=== PATIENT | female | born 1960 | race Caucasian/White ===

== ENCOUNTER 2020-09-09 11:31 | Outpatient (REF) | payer BC, SELFPAY ==
--- NOTE | 2020-09-09 11:31 | CT_ITS ---
EXAMINATION: CT CHEST WITHOUT CONTRAST CLINICAL INFORMATION: Lung cancer COMPARISON: Previous chest CT scans most recent March 2020 TECHNIQUE: Multidetector volumetric CT imaging of the chest was done. Axial MIP volume rendering provided. Sagittal and coronal reformatted images were obtained. This CT examination was performed using dose optimization techniques as appropriate, variously including the following: *Automated exposure control *Adjustment of mA and/or kV according to patient size (this includes techniques or standardized protocols for targeted exams where dose is matched to indication/reason for exam; i.e. 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 There is evidence of mild paraseptal emphysema. There is a small 3 mm left upper lobe nodule axial image 245 series 7 that is stable. There is a scarring or chronic subsegmental atelectasis at the left lung base axial image 400 series 7 that is stable. MEDIASTINUM: There are small mediastinal lymph nodes. No enlarged lymph nodes are seen. The heart does not appear enlarged. There is no coronary artery calcification. There is no pericardial effusion. PLEURA: There is no pleural effusion. No pleural mass or thickening. AXILLA: No enlarged axillary lymph nodes. There may be postsurgical changes to the right breast. No chest wall mass is seen. UPPER ABDOMEN: There is a gastric lap band. The liver is heterogeneous in attenuation suggestive of fatty infiltration with areas of focal fatty sparing. The gallbladder has been removed. OSSEOUS STRUCTURES: There are degenerative changes of the spine. CT/CT chest wo con IMPRESSION: Stable postsurgical changes following left lower lobe lobectomy.
== END 2020-09-09 11:32 | disposition home or self-care (01) ==
LOC: HO.CT 11:31
PROVIDERS: PCP Internal Medicine; Visit Provider Surgery
DX: C34.32 Malignant neoplasm of lower lobe, left bronchus or lung (principal)
CPT/HCPCS: 71250

== ENCOUNTER 2020-11-01 13:26 | Outpatient (REF) | payer BC, SELFPAY ==
[2020-11-01 17:15] LABS: Free T4 (Free Thyroxine) 1.23 ng/dL (0.71-1.85); Thyroid Stimulating Hormone 0.99 uIU/mL (0.32-4.0)
== END 2020-11-01 13:27 | disposition home or self-care (01) ==
LOC: HO.HMGCLDS 13:26
PROVIDERS: PCP Internal Medicine; Visit Provider Internal Medicine Endocrinology, Diabetes & Metabolism
DX: E03.9 Hypothyroidism, unspecified (principal)
CPT/HCPCS: 36415; 84439; 84443

== ENCOUNTER → 2020-11-04 11:49 | Outpatient (BNVA) | payer BC, SELFPAY | PROVIDERS: PCP Internal Medicine; Visit Provider Internal Medicine Endocrinology, Diabetes & Metabolism | DX: Z76.89 Persons encountering health services in other specified circumstances (principal) ==

== ENCOUNTER → 2020-11-08 10:49 | Outpatient (BNVA) | payer BC, SELFPAY | PROVIDERS: PCP Internal Medicine; Visit Provider Surgery | DX: Z76.89 Persons encountering health services in other specified circumstances (principal) | CPT/HCPCS: 99215 ==

== ENCOUNTER 2021-02-01 12:22 | Outpatient (REF) | payer BC, SELFPAY | END 2021-02-01 12:23 | disposition home or self-care (01) | LOC: HO.LAB 12:22 | PROVIDERS: Visit Provider Nurse Practitioner Family | DX: T14.8XXA Other injury of unspecified body region, initial encounter (principal); L03.90 Cellulitis, unspecified; W57.XXXA Bitten or stung by nonvenomous insect and other nonvenomous arthropods, initial encounter; Y93.9 Activity, unspecified; Y92.9 Unspecified place or not applicable; Y99.9 Unspecified external cause status | CPT/HCPCS: 87071; 87077; 87147; 87186; 87205 ==

== ENCOUNTER 2021-02-04 07:55 | Outpatient (RCR) | payer BC, SELFPAY | END 2021-05-02 09:54 | disposition home or self-care (01) | LOC: HO.WCC 07:55 | PROVIDERS: Visit Provider Physician Assistant | DX: L97.112 Non-pressure chronic ulcer of right thigh with fat layer exposed (principal); S70.361A Insect bite (nonvenomous), right thigh, initial encounter; E66.01 Morbid (severe) obesity due to excess calories; I87.2 Venous insufficiency (chronic) (peripheral); I27.20 Pulmonary hypertension, unspecified; G62.9 Polyneuropathy, unspecified; E03.9 Hypothyroidism, unspecified; Z79.2 Long term (current) use of antibiotics; Z79.899 Other long term (current) drug therapy; Z99.81 Dependence on supplemental oxygen | CPT/HCPCS: 10060; 11042; 87071; 87077; 87147; 87186; 87205; 88304; 99213 ==

== ENCOUNTER → 2021-02-06 10:18 | Outpatient (BNVA) | payer BC, SELFPAY | PROVIDERS: PCP Internal Medicine; Visit Provider Physician Assistant ==

== ENCOUNTER 2021-02-07 10:21 | Outpatient (REF) | payer BC, SELFPAY ==
[2021-02-07 11:41] LABS: Anion Gap 14 (12-20); Blood Urea Nitrogen 15 mg/dL (9-16); Carbon Dioxide 31 mmol/L (22-29); Chloride 98 mmol/L (96-108); Estimated Glomerular Filt Rate > 60; Glucose Random 100 mg/dL (60-115); Magnesium 2.2 mg/dL (1.6-2.6); Potassium 3.8 mmol/L (3.3-5.1); Sodium 139 mmol/L (135-145)
[2021-02-07 11:44] LABS: B Type Natriuretic Peptide 19 pg/mL (<100)
[2021-02-07 12:00] LABS: Free T4 (Free Thyroxine) 1.45 ng/dL (0.71-1.85); Thyroid Stimulating Hormone 0.17 uIU/mL (0.32-4.0)
[2021-02-08 08:21] LABS: Lyme Abs Screen <0.90 index
== END 2021-02-07 10:22 | disposition home or self-care (01) ==
LOC: HO.HMGCLDS 10:21
PROVIDERS: Absent Provider Internal Medicine Endocrinology, Diabetes & Metabolism; PCP Internal Medicine; Referring Provider Internal Medicine Cardiovascular Disease; Visit Provider Nurse Practitioner Family
DX: R06.02 Shortness of breath (principal); E03.8 Other specified hypothyroidism; E06.3 Autoimmune thyroiditis; T14.8XXA Other injury of unspecified body region, initial encounter
CPT/HCPCS: 36415; 80051; 82565; 82947; 83735; 83880; 84439; 84443; 84520; 86617; 86618

== ENCOUNTER → 2021-03-27 10:32 | Outpatient (BNVA) | payer BC, SELFPAY | PROVIDERS: PCP Internal Medicine; Referring Provider Internal Medicine; Visit Provider Internal Medicine Gastroenterology ==

== ENCOUNTER → 2021-06-09 10:56 | Outpatient (BNVA) | payer BC, SELFPAY | PROVIDERS: Referring Provider Internal Medicine; Visit Provider Internal Medicine Gastroenterology ==

== ENCOUNTER 2021-06-20 15:32 | Outpatient (REF) | payer BC, SELFPAY ==
[2021-06-20 15:36] LABS: MANUAL DIFF FLAG NO
[2021-06-20 15:43] LABS: Basophils Percent Auto 0.5 % (0-2); Eosinophils Absolute Auto 0.2 X10*3/uL (0.0-0.4); Eosinophils Percent Auto 2.1 % (0-4); Hematocrit 33.2 % (37-47); Hemoglobin 10.7 g/dl (12.0-16.0); Imm Gran Abs Auto 0.04 X10*3/uL (0.00-0.03); Imm Gran Pct Auto 0.5 % (0.0-0.4); Lymphocytes Absolute Auto 1.7 X10*3/uL (1.2-4.9); Lymphocytes Percent Auto 20.7 % (20-40); Mean Corpuscular HGB Conc 32.2 g/dl (31.0-35.0); Mean Corpuscular Hemoglobin 30.2 pg (27.0-33.0); Mean Corpuscular Volume 93.8 fL (80-98); Mean Platelet Volume 8.9 fL (9.4-12.3); Monocytes Absolute Auto 0.7 X10*3/uL (0.1-1.2); Monocytes Percent Auto 9.1 % (2-11); Neutrophils Absolute Auto 5.4 X10*3/uL (2.0-8.3); Neutrophils Percent Auto 67.1 % (45-73); Platelet Count 396 X10*3/uL (160-400); Red Blood Count 3.54 X10*6/uL (4.20-5.50); Red Cell Distribution Width 14.5 % (11.0-16.0)
[2021-06-20 16:05] LABS: Alanine Aminotransferase 13 U/L (0-31); Albumin Level 3.8 g/dL (3.5-5.0); Alkaline Phosphatase 115 U/L (39-117); Anion Gap 16 (12-20); Aspartate Amino Transferase 16 U/L (5-31); Bilirubin Total 0.2 mg/dL (0.0-1.0); Blood Urea Nitrogen 11 mg/dL (9-16); Calcium 8.9 mg/dL (8.4-10.2); Carbon Dioxide 30 mmol/L (22-29); Chloride 98 mmol/L (96-108); Estimated Glomerular Filt Rate 60; Glucose Random 114 mg/dL (60-115); Potassium 3.6 mmol/L (3.3-5.1); Sodium 140 mmol/L (135-145); Total Protein 6.5 g/dL (6.5-8.0)
[2021-06-20 16:35] LABS: Erythrocyte Sedimentation Rate 90 MM/HR (0-20)
== END 2021-06-20 15:33 | disposition home or self-care (01) ==
LOC: HO.HVNA 15:32
PROVIDERS: PCP Internal Medicine; Visit Provider Internal Medicine Infectious Disease
DX: T84.50XA Infection and inflammatory reaction due to unspecified internal joint prosthesis, initial encounter (principal)
CPT/HCPCS: 36415; 80053; 85025; 85652; 86140

== ENCOUNTER 2021-07-01 14:10 | Outpatient (REF) | payer BC, SELFPAY ==
[2021-07-01 15:05] LABS: Free T4 (Free Thyroxine) 0.72 ng/dL (0.71-1.85); T4 Thyroxine 3.6 ug/dL (4.5-12.0)
== END 2021-07-01 14:11 | disposition home or self-care (01) ==
LOC: HO.HVNA 14:10
PROVIDERS: Visit Provider Internal Medicine
DX: E03.8 Other specified hypothyroidism (principal); E06.3 Autoimmune thyroiditis
CPT/HCPCS: 36415; 84436; 84439; 84443

== ENCOUNTER 2021-07-07 14:46 | Outpatient (REF) | payer BC, SELFPAY ==
[2021-07-07 14:51] LABS: MANUAL DIFF FLAG NO
[2021-07-07 14:57] LABS: Basophils Percent Auto 0.6 % (0-2); Eosinophils Absolute Auto 0.3 X10*3/uL (0.0-0.4); Hematocrit 34.4 % (37-47); Hemoglobin 10.9 g/dl (12.0-16.0); Imm Gran Abs Auto 0.01 X10*3/uL (0.00-0.03); Imm Gran Pct Auto 0.2 % (0.0-0.4); Lymphocytes Absolute Auto 2.2 X10*3/uL (1.2-4.9); Lymphocytes Percent Auto 33.4 % (20-40); Mean Corpuscular HGB Conc 31.7 g/dl (31.0-35.0); Mean Corpuscular Hemoglobin 29.5 pg (27.0-33.0); Mean Corpuscular Volume 93.2 fL (80-98); Mean Platelet Volume 9.1 fL (9.4-12.3); Monocytes Absolute Auto 0.6 X10*3/uL (0.1-1.2); Monocytes Percent Auto 9.5 % (2-11); Neutrophils Absolute Auto 3.4 X10*3/uL (2.0-8.3); Neutrophils Percent Auto 52.3 % (45-73); Platelet Count 291 X10*3/uL (160-400); Red Blood Count 3.69 X10*6/uL (4.20-5.50); Red Cell Distribution Width 14.6 % (11.0-16.0); White Blood Count 6.5 X10*3/uL (4.8-10.8)
[2021-07-07 20:55] LABS: Alanine Aminotransferase 15 U/L (0-31); Albumin Level 3.6 g/dL (3.5-5.0); Alkaline Phosphatase 109 U/L (39-117); Anion Gap 15 (12-20); Aspartate Amino Transferase 16 U/L (5-31); Bilirubin Total 0.3 mg/dL (0.0-1.0); Blood Urea Nitrogen 12 mg/dL (9-16); Calcium 9.3 mg/dL (8.4-10.2); Carbon Dioxide 30 mmol/L (22-29); Chloride 102 mmol/L (96-108); Estimated Glomerular Filt Rate > 60; Glucose Random 93 mg/dL (60-115); Potassium 3.5 mmol/L (3.3-5.1); Sodium 143 mmol/L (135-145); Total Protein 6.2 g/dL (6.5-8.0)
== END 2021-07-07 14:47 | disposition home or self-care (01) ==
LOC: HO.LNP 14:46
PROVIDERS: Visit Provider Internal Medicine
DX: M00.9 Pyogenic arthritis, unspecified (principal)
CPT/HCPCS: 80053; 85025

== ENCOUNTER 2021-08-01 | Outpatient (REF) | payer BC, SELFPAY ==
--- NOTE | ~2021-08-01 | CT_ITS ---
EXAMINATION: CT CHEST WITHOUT CONTRAST CLINICAL INFORMATION: History of lung cancer. Post left lower lobe lobectomy. COMPARISON: Previous chest CT scans most recent August 2020 TECHNIQUE: Multidetector volumetric CT imaging of the chest was done. Axial MIP volume rendering provided. Sagittal and coronal reformatted images were obtained. This CT examination was performed using dose optimization techniques as appropriate, variously including the following: *Automated exposure control *Adjustment of mA and/or kV according to patient size (this includes techniques or standardized protocols for targeted exams where dose is matched to indication/reason for exam; i.e. extremities or head) *Use of iterative reconstruction technique DLP: 232 mGy-cm FINDINGS: LUNGS: There are stable postsurgical changes following left lower lobe lobectomy with left lung volume loss and shift of the central mediastinal structures to the left. There is chronic scarring or subsegmental atelectasis at the left lung base that is stable. There is minimal subsegmental atelectasis at the right lung base. The lungs are otherwise clear. MEDIASTINUM: There are small mediastinal lymph nodes. No enlarged lymph nodes are seen. The heart does not appear enlarged. There is no pericardial effusion. The thoracic aorta is normal in caliber. PLEURA: There is no pleural effusion. No pleural mass or thickening. AXILLA: There are surgical clips in the right axilla and breast. No chest wall mass or enlarged axillary lymph nodes are seen. UPPER ABDOMEN: There is a gastric lap band. There may be a small esophageal hernia. The gallbladder has been removed. OSSEOUS STRUCTURES: There are degenerative changes of the spine. CT/CT chest wo con IMPRESSION: Stable postsurgical changes following left lower lobe lobectomy.
== END 2021-08-01 00:01 | disposition home or self-care (01) ==
LOC: HO.CT
PROVIDERS: PCP Internal Medicine; Visit Provider Surgery
DX: C34.90 Malignant neoplasm of unspecified part of unspecified bronchus or lung (principal)
CPT/HCPCS: 71250

== ENCOUNTER → 2021-08-15 10:36 | Outpatient (BNVA) | payer BC, SELFPAY | PROVIDERS: PCP Internal Medicine; Visit Provider Surgery | DX: C34.90 Malignant neoplasm of unspecified part of unspecified bronchus or lung (principal); I27.24 Chronic thromboembolic pulmonary hypertension; F17.200 Nicotine dependence, unspecified, uncomplicated; Z79.899 Other long term (current) drug therapy; Z90.2 Acquired absence of lung [part of]; Z99.81 Dependence on supplemental oxygen | CPT/HCPCS: 99212 ==

== ENCOUNTER 2021-08-28 11:52 | Outpatient (REF) | payer BC, SELFPAY ==
[2021-08-28 13:45] LABS: MANUAL DIFF FLAG NO
[2021-08-28 13:51] LABS: Basophils Percent Auto 0.4 % (0-2); Eosinophils Absolute Auto 0.3 X10*3/uL (0.0-0.4); Eosinophils Percent Auto 3.6 % (0-4); Hematocrit 36.8 % (37.0-47.0); Hemoglobin 11.6 g/dl (12.0-16.0); Imm Gran Abs Auto 0.02 X10*3/uL (0.00-0.03); Imm Gran Pct Auto 0.3 % (0.0-0.4); Lymphocytes Absolute Auto 1.5 X10*3/uL (1.2-4.9); Lymphocytes Percent Auto 20.6 % (20-40); Mean Corpuscular HGB Conc 31.5 g/dl (31.0-35.0); Mean Corpuscular Hemoglobin 28.7 pg (27.0-33.0); Mean Corpuscular Volume 91.1 fL (80.0-98.0); Monocytes Absolute Auto 0.6 X10*3/uL (0.1-1.2); Monocytes Percent Auto 7.8 % (2-11); Neutrophils Absolute Auto 5.04 x10*3/uL (2.0-8.3); Neutrophils Percent Auto 67.3 % (45-73); Platelet Count 321 X10*3/uL (160-400); Red Blood Count 4.04 X10*6/uL (4.20-5.50); Red Cell Distribution Width 14.5 % (11.0-16.0); White Blood Count 7.5 X10*3/uL (4.8-10.8)
[2021-08-28 14:03] LABS: Estimated Average Glucose 108 mg/dL; Hemoglobin A1c % 5.4 %
[2021-08-28 14:22] LABS: Anion Gap 13 (12-20); Blood Urea Nitrogen 12 mg/dL (9-16); Calcium 8.8 mg/dL (8.4-10.2); Carbon Dioxide 32 mmol/L (22-29); Chloride 102 mmol/L (96-108); Estimated Glomerular Filt Rate > 60; Glucose Random 107 mg/dL (60-115); Iron 45 mcg/dL (30-160); Percent Iron Saturation 15 % (15-50); Sodium 143 mmol/L (135-145); Total Iron Binding Capacity 291 mcg/dL (228-428); Unsaturated Iron Binding 246 ug/dL
[2021-08-28 14:42] LABS: Free T4 (Free Thyroxine) 1.58 ng/dL (0.71-1.85); Thyroid Stimulating Hormone 0.08 uIU/mL (0.32-4.0)
[2021-08-28 14:44] LABS: Vitamin D 25-OH Total 44.8 ng/mL (>30)
[2021-08-28 14:51] LABS: Vitamin B12 741 pg/mL (200-900)
[2021-08-28 15:16] LABS: Insulin 17 uU/mL (2-29)
[2021-09-03 07:41] LABS: Fructosamine 250 umol/L (205-285)
== END 2021-08-28 11:53 | disposition home or self-care (01) ==
LOC: HO.HMGCLDS 11:52
PROVIDERS: PCP Internal Medicine; Visit Provider Internal Medicine
DX: E03.8 Other specified hypothyroidism (principal); E06.3 Autoimmune thyroiditis; E66.01 Morbid (severe) obesity due to excess calories; Z68.41 Body mass index [BMI] 40.0-44.9, adult
CPT/HCPCS: 36415; 80048; 82040; 82306; 82607; 82746; 82985; 83036; 83525; 83540; 84134; 84439; 84443; 85025

== ENCOUNTER → 2021-09-22 10:52 | Outpatient (BNVA) | payer BC, SELFPAY | PROVIDERS: Referring Provider Internal Medicine; Visit Provider Internal Medicine Gastroenterology ==

== ENCOUNTER 2021-11-12 13:12 | Outpatient (REF) | payer BC, SELFPAY ==
[2021-11-12 16:23] LABS: MANUAL DIFF FLAG NO
[2021-11-12 16:27] LABS: Basophils Percent Auto 0.6 % (0-2); Eosinophils Absolute Auto 0.4 X10*3/uL (0.0-0.4); Eosinophils Percent Auto 5.2 % (0-4); Hematocrit 39.9 % (37.0-47.0); Hemoglobin 12.3 g/dl (12.0-16.0); Imm Gran Abs Auto 0.02 X10*3/uL (0.00-0.03); Imm Gran Pct Auto 0.3 % (0.0-0.4); Lymphocytes Absolute Auto 1.6 X10*3/uL (1.2-4.9); Lymphocytes Percent Auto 24.1 % (20-40); Mean Corpuscular HGB Conc 30.8 g/dl (31.0-35.0); Mean Corpuscular Hemoglobin 28.2 pg (27.0-33.0); Mean Corpuscular Volume 91.5 fL (80.0-98.0); Mean Platelet Volume 8.8 fL (9.4-12.3); Monocytes Absolute Auto 0.6 X10*3/uL (0.1-1.2); Monocytes Percent Auto 8.7 % (2-11); Neutrophils Absolute Auto 4.1 x10*3/uL (2.0-8.3); Neutrophils Percent Auto 61.1 % (45-73); Platelet Count 338 X10*3/uL (160-400); Red Blood Count 4.36 X10*6/uL (4.20-5.50); Red Cell Distribution Width 14.5 % (11.0-16.0); White Blood Count 6.8 X10*3/uL (4.8-10.8)
[2021-11-12 17:02] LABS: Anion Gap 14 (12-20); Blood Urea Nitrogen 15 mg/dL (9-16); Carbon Dioxide 30 mmol/L (22-29); Chloride 101 mmol/L (96-108); Estimated Glomerular Filt Rate > 60; Glucose Random 101 mg/dL (60-115); Potassium 4.3 mmol/L (3.3-5.1); Sodium 141 mmol/L (135-145)
[2021-11-12 17:03] LABS: Cholesterol 200 mg/dL; HDL Cholesterol 54 mg/dL; Iron 42 mcg/dL (30-160); LDL Cholesterol Calculated 125 mg/dl; Percent Iron Saturation 13 % (15-50); Total Iron Binding Capacity 320 mcg/dL (228-428); Triglycerides 105 mg/dL; Unsaturated Iron Binding 278 ug/dL
[2021-11-12 17:19] LABS: Free T4 (Free Thyroxine) 1.38 ng/dL (0.71-1.85); Thyroid Stimulating Hormone 0.88 uIU/mL (0.32-4.0)
[2021-11-12 17:24] LABS: Vitamin D 25-OH Total 39.9 ng/mL (>30)
[2021-11-14 02:36] LABS: Triiodothyronine T3 Total 65 ng/dL (76-181)
[2021-11-15 16:51] LABS: FIB-ALT 21 U/L (6-29); FIB-Alpha-2-Macroglobulin 114 mg/dL (106-279); FIB-Apolipoprotein A1 155 mg/dL (101-198); FIB-GGT 57 U/L (3-70); FIB-Haptoglobin 294 mg/dL (43-212); FIB-Total Bilirubin 0.3 mg/dL (0.2-1.2); Liver Fibrosis Score 0.04; Liver Fibrosis Stage F0; Nec Inflam Act Grade A0; Nec Inflam Act Score 0.06
== END 2021-11-12 13:13 | disposition home or self-care (01) ==
LOC: HO.HMGCLDS 13:12
PROVIDERS: Absent Provider Internal Medicine Gastroenterology; PCP Internal Medicine; Referring Provider Internal Medicine; Visit Provider Physician Assistant Medical
DX: E03.8 Other specified hypothyroidism (principal); E06.3 Autoimmune thyroiditis; D64.9 Anemia, unspecified; E78.5 Hyperlipidemia, unspecified; I10 Essential (primary) hypertension; I27.20 Pulmonary hypertension, unspecified; K75.81 Nonalcoholic steatohepatitis (NASH); Z78.0 Asymptomatic menopausal state
CPT/HCPCS: 36415; 80051; 80061; 81596; 82306; 82565; 82947; 83540; 84439; 84443; 84480; 84520; 85025

== ENCOUNTER → 2021-11-14 13:06 | Outpatient (REF) | payer BC, SELFPAY ==
--- NOTE | 2021-11-14 13:15 | ECG_ITS ---
Test Reason : preop Blood Pressure : / mmHG Vent. Rate : 097 BPM Atrial Rate : 097 BPM P-R Int : 190 ms QRS Dur : 096 ms QT Int : 370 ms P-R-T Axes : 080 -21 035 degrees QTc Int : 469 ms Sinus rhythm with Fusion complexes Incomplete right bundle branch block Minimal voltage criteria for LVH, may be normal variant ( R in aVL ) Possible Lateral infarct , age undetermined Abnormal ECG When compared with ECG of 01-OCT-2018 11:08, Significant changes have occurred Referred By: Alisha Worley Electronically Signed By:Hugo Pisano
== END ==
LOC: HO.CARD 13:06
PROVIDERS: PCP Internal Medicine; Visit Provider Internal Medicine
DX: Z01.818 Encounter for other preprocedural examination (principal); I27.24 Chronic thromboembolic pulmonary hypertension; I10 Essential (primary) hypertension
CPT/HCPCS: 93005

== ENCOUNTER → 2021-11-19 08:40 | Outpatient (BNVA) | payer BC, SELFPAY | PROVIDERS: PCP Internal Medicine; Referring Provider Internal Medicine; Visit Provider Internal Medicine ==

== ENCOUNTER 2022-02-04 11:23 | Outpatient (REF) | payer BC, SELFPAY ==
--- NOTE | ~2022-02-04 | XR_ITS ---
EXAMINATION: XR SKULL CLINICAL INFORMATION: Indentation on the skull. Question congenital malformation. COMPARISON: None TECHNIQUE: 5 views of the skull were obtained. FINDINGS: The calvarium appears normal in contour and density. No bony abnormality seen. There is benign hyperostosis frontalis interna. Also visualized is benign pineal gland calcification. Visualized paranasal sinuses and mastoid air cells are normal. Bilateral bony orbits are normal. Visualized mandible and maxillofacial bones are unremarkable. XR/XR skull min 4V IMPRESSION: Essentially unremarkable skull exam.
== END 2022-02-04 11:24 | disposition home or self-care (01) ==
LOC: HO.HMGCX 11:23
PROVIDERS: PCP Internal Medicine; Visit Provider Internal Medicine
DX: M95.2 Other acquired deformity of head (principal)
CPT/HCPCS: 70260

== ENCOUNTER → 2022-03-09 12:33 | Outpatient (BNVA) | payer BC, SELFPAY | PROVIDERS: PCP Internal Medicine; Referring Provider Internal Medicine; Visit Provider Internal Medicine | DX: R94.31 Abnormal electrocardiogram [ECG] [EKG] (principal); I27.24 Chronic thromboembolic pulmonary hypertension; I95.9 Hypotension, unspecified | CPT/HCPCS: 93005 ==

== ENCOUNTER 2022-04-21 12:05 | Outpatient (REF) | payer BC, SELFPAY ==
[2022-04-21 14:43] LABS: Thyroid Stimulating Hormone 3.44 uIU/mL (0.32-4.0)
== END 2022-04-21 12:06 | disposition home or self-care (01) ==
LOC: HO.HMGCLDS 12:05
PROVIDERS: PCP Internal Medicine; Visit Provider Internal Medicine Endocrinology, Diabetes & Metabolism
DX: E03.8 Other specified hypothyroidism (principal); E06.3 Autoimmune thyroiditis
CPT/HCPCS: 36415; 84439; 84443

== ENCOUNTER → 2022-05-28 13:25 | Outpatient (BNVA) | payer BC, SELFPAY | PROVIDERS: PCP Internal Medicine; Referring Provider Internal Medicine; Visit Provider Internal Medicine | DX: Z01.810 Encounter for preprocedural cardiovascular examination (principal); I95.9 Hypotension, unspecified; I27.24 Chronic thromboembolic pulmonary hypertension; R94.31 Abnormal electrocardiogram [ECG] [EKG] | CPT/HCPCS: 93005 ==

== ENCOUNTER 2022-08-19 12:58 | Outpatient (REF) | payer BC, SELFPAY ==
--- NOTE | ~2022-08-19 | CT_ITS ---
EXAMINATION: CT CHEST WITHOUT CONTRAST CLINICAL INFORMATION: Lung cancer COMPARISON: Previous chest CT most recent July 2021 TECHNIQUE: Multidetector volumetric CT imaging of the chest was done. Axial MIP volume rendering provided. Sagittal and coronal reformatted images were obtained. This CT examination was performed using dose optimization techniques as appropriate, variously including the following: *Automated exposure control *Adjustment of mA and/or kV according to patient size (this includes techniques or standardized protocols for targeted exams where dose is matched to indication/reason for exam; i.e. 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 This appears unchanged. There is mild biapical pleural and parenchymal scarring. There is chronic scarring or subsegmental atelectasis in the left lower lobe that appears unchanged. There is a 3 mm left nodule axial image 229 series 5 that retrospect is unchanged. MEDIASTINUM: There are small mediastinal lymph nodes that are stable. Normal heart size. No pericardial effusion. Normal caliber thoracic aorta. CORONARY ARTERY CALCIFICATION: None visualized on this study. PLEURA: There is no pleural effusion. No pleural mass or thickening. AXILLA: Surgical clips in the right breast and axilla. No chest wall mass or enlarged axillary lymph nodes. UPPER ABDOMEN: There is a gastric lap band. The distal esophagus is slightly dilated. This is similar to previous exams. OSSEOUS STRUCTURES: Degenerative changes of the spine. CT/CT chest wo IV con IMPRESSION: Stable postsurgical changes following left lower lobe lobectomy. Fleischner guidelines were followed.
== END 2022-08-19 12:59 | disposition home or self-care (01) ==
LOC: HO.CT 12:58
PROVIDERS: PCP Internal Medicine; Visit Provider Surgery
DX: C34.90 Malignant neoplasm of unspecified part of unspecified bronchus or lung (principal)
CPT/HCPCS: 71250

== ENCOUNTER 2022-09-11 13:38 | Outpatient (REF) | payer BC, SELFPAY ==
[2022-09-11 15:20] LABS: Free T4 (Free Thyroxine) 1.08 ng/dL (0.71-1.85); Thyroid Stimulating Hormone 0.99 uIU/mL (0.32-4.0)
== END 2022-09-11 13:39 | disposition home or self-care (01) ==
LOC: HO.LAB 13:38
PROVIDERS: PCP Internal Medicine; Visit Provider Internal Medicine Endocrinology, Diabetes & Metabolism
DX: E03.8 Other specified hypothyroidism (principal); E06.3 Autoimmune thyroiditis
CPT/HCPCS: 36415; 84439; 84443

== ENCOUNTER → 2022-09-25 10:31 | Outpatient (BNVA) | payer BC, SELFPAY | PROVIDERS: PCP Internal Medicine; Visit Provider Surgery | DX: C34.90 Malignant neoplasm of unspecified part of unspecified bronchus or lung (principal) | CPT/HCPCS: 99212 ==

== ENCOUNTER 2022-11-30 10:43 | Outpatient (AMB) | payer BC, SELFPAY ==
--- NOTE | 2022-11-30 10:44 | A.OFFPC_ITS ---
Vital Signs 11/30/22 10:46 Height 5 ft 4 in Weight 247 lb BMI 42.4 BP 108/64 Blood Pressure Location Lt brachial Position Sitting Pulse 114 H Pulse Source Pulse Oximeter Pulse Oximetry (%) 98 Oxygen Delivery Method Room Air Intake Visit Reasons: ffup anemia, HTN , thyroid Intake Note: Follow-up on hypertension, anemia and hypothyroidism Professional Fee Coder Required: No Allergies Sulfa (Sulfonamide Antibiotics) Allergy (Intermediate, Verified 07/04/23 22:21) RASH/SWELLING/THROAT CLOSING soy [SOY] Allergy (Unknown, Verified 07/04/23 22:21) HIVES Medication List - Last Reconciled 07/04/23 by Alisha Worley MD acetaminophen (Tylenol Extra Strength) 1,000 mg PO Q6H PRN ascorbic acid (vitamin C) 1,000 mg PO DAILY baclofen 10 mg PO TID PRN 90 days clonazepam 1 mg PO .q 6 hrs docusate sodium (Colace) 100 mg PO BID furosemide 40 mg PO DAILY gabapentin 600 mg PO TID L. gasseri-B. bifidum-B longum 1.5 billion cell 1 cap PO DAILY lamotrigine 100 mg PO DAILY levothyroxine 250 mcg (2 x 125 mcg) PO DAILY 90 days lisdexamfetamine 70 mg PO QAM methylphenidate HCl 40 mg PO QAM midodrine 5 mg PO TID mirabegron ER (Myrbetriq) 50 mg PO DAILY phenazopyridine (Pyridium) 200 mg PO TID 3 days polyethylene glycol 3350 (Miralax) 17 grams PO BID quetiapine 800 mg PO BEDTIME quetiapine 200 mg PO BEDTIME riociguat (Adempas) 2 mg PO TID rivaroxaban 20 mg PO DAILY Saccharomyces boulardii (Daily Probiotic (S. 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 She has been feeling well for the most part but does get tired easily, compliant with taking her medications. She has times that she keeps forgetting small things, but attributes this to her psych meds. FORMERLY [facility] Medical History Bilateral knee pain Word finding difficulty Right hip pain ADD (attention deficit disorder) Bipolar disorder Dependence on supplemental oxygen Nonscarring hair loss Morbid obesity History of pneumothorax History of pulmonary embolism Chronic thromboembolic pulmonary hypertension History of right breast cancer (~1998) Gallstones Migraine headache Anemia Fatigue Hypothyroidism Lung cancer (~2017) Obstructive sleep apnea (adult) (pediatric) Surgical History History of right breast biopsy (~1998) History of colonoscopy History of laparoscopic adjustable gastric banding (~2009) History of cholecystectomy (~2001) History of lobectomy of lung (~2017) History of total right hip replacement (~2012) History of lumpectomy of right breast Family History Father Stomach cancer Stroke CAD (coronary artery disease) Heart disease Hyperlipidemia CVD (cardiovascular disease) Mother Hyperlipidemia HTN (hypertension) History of TIA (transient ischemic attack) Vascular dementia Mental illness in member of household Sister Rheumatoid arthritis Maternal Aunt Breast cancer Social History Housing: House Alcohol intake: current Alcohol intake frequency: holidays/special occasions only Patient Tobacco Use Status: Former Tobacco user Quit Date: 1997 Years Smoked: 12 +/- e-Cigarette/Vaping Use: Never Used Second Hand Smoke Exposure: No Current occupational status: other 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 Jose Braden, Romelia Hawkins, Chetan Jones and colleagues, with an educational hany from [employer]. Review of Systems Const Denies chills, Denies fever(s), Denies headache(s) and Denies poor appetite Eyes Reports no additional complaints ENT Denies dizziness and Denies headache(s) Card Denies chest pain, Denies leg edema, Denies lightheadedness, Denies dyspnea, Denies dyspnea on exertion and Denies orthopnea Resp Denies cough, Denies dyspnea and Denies dyspnea on exertion GI Denies hematochezia, Denies change in bowel habits and Denies heartburn Denies hematuria and Denies difficulty voiding Musc Reports arthralgias (knees), Denies joint swelling, Denies numbness and Denies tingling Skin/Breast Denies rash Neuro Denies dizziness, Denies headache(s), Denies numbness and Denies tingling Endo Reports no additional complaints Manuel/Lymph Reports no additional complaints Aller/Immun Reports no additional complaints Physical exam (Primary Care) Vital Signs: Last Vital Signs Pulse 114 H 11/30/22 10:46 BP 108/64 11/30/22 10:46 Pulse Ox 98 11/30/22 10:46 Oxygen Delivery Method Room Air 11/30/22 10:46 BMI result Body Mass Index 42.4 Tobacco/Smoking Status: Tobacco use Status Tobacco use date assessed 11/30/22 11/30/22 10:49 Patient Tobacco Use Status Former Tobacco user 11/30/22 10:49 e-Cigarette/Vaping Use Never Used 11/30/22 10:49 Thrive Assessment: Date of Thrive Assessment Date Thrive assessed 09/05/21 11/30/22 10:49 Const General: comfortable, no acute distress and alert Orientation/consciousness: patient oriented x3 Limitations: wheelchair HENMT Ears: external ears normal General nose exam: Normal external nose present Mouth: Normal oral and palatal mucosa present, oropharynx normal and moist mucous membranes Eyes General: appearance normal, both eyes and all related structures Conjunctivae: conjunctivae normal Sclerae: sclerae normal Pupils: Equal, round and reactive pupils present EOM: EOMs intact bilaterally Neck Neck: Yes full ROM, Yes no lymphadenopathy and Yes supple Resp Effort & Inspection: normal respiratory effort and able to speak in complete sentences Auscultation: clear to auscultation bilaterally Cardio Rate: tachycardic Rhythm: regular rhythm Heart sounds: S1 normal heart sound present and S2 normal heart sound present GI Palpation (GI): Soft to palpation, nontender and no masses Auscultation: normal bowel sounds Skin General skin exam: no rashes or lesions noted Neuro General: patient oriented x3, moves all extremities, Normal light touch and pain sensation and no focal motor deficits Cranial nerves: Yes CN's II-XII intact bilaterally and Yes Equal, round and reactive pupils present Cognition (Neuro): normal cognition Extrem General: Yes no joint enlargement, Yes no clubbing, cyanosis or edema and Yes no calf tenderness Psych Appearance: grossly normal and well kempt Mental Status: mental status grossly normal Speech and movement: Normal speech and movement present Affect: normal affect Attitude: cooperative Thought process: Normal thought process present Thought content: Normal thought content present Assessment and Plan Assessment & Plan (1) Anemia: Code(s): D64.9 - Anemia, unspecified Qualifiers: Anemia type: unspecified type Qualified Code(s): D64.9 - Anemia, unspecified Plan: Will check CBC, vitamin B12 vitamin-D level (2) Hypertension: Code(s): I10 - Essential (primary) hypertension Qualifiers: Hypertension type: primary hypertension Qualified Code(s): I10 - Essential (primary) hypertension Plan: Blood pressure at goal of less than 130/80. Continue with current medication. Reinforced importance of following a low sodium diet, getting regular exercise, and lowering stress levels. Comprehensive metabolic panel ordered, and fasting lipid panel (3) Hypothyroidism: Code(s): E03.9 - Hypothyroidism, unspecified Qualifiers: Hypothyroidism type: due to Jamia's thyroiditis Qualified Code(s): E03.8 - Other specified hypothyroidism; E06.3 - Autoimmune thyroiditis Plan: Will check TSH and free T4 level, in the meantime continue on current dose of levothyroxine 250 mcg daily Orders: Orders Complete Blood Count Auto Diff 11/30/22 D64.9 - Anemia, unspecified, I10 - Essential (primary) hypertension, E03.9 - Hypothyroidism, unspecified, M79.7 - Fibromyalgia, R47.89 - Other speech disturbances Vitamin B12 and Folate 11/30/22 D64.9 - Anemia, unspecified, I10 - Essential (primary) hypertension, E03.9 - Hypothyroidism, unspecified, M79.7 - Fibromyalgia, R47.89 - Other speech disturbances Vitamin D 25-OH Total 11/30/22 D64.9 - Anemia, unspecified, I10 - Essential (primary) hypertension, E03.9 - Hypothyroidism, unspecified, M79.7 - Fibromyalgia, R47.89 - Other speech disturbances Thyroid Stimulating Hormone 11/30/22 D64.9 - Anemia, unspecified, I10 - Essential (primary) hypertension, E03.9 - Hypothyroidism, unspecified, M79.7 - Fibromyalgia, R47.89 - Other speech disturbances Free T4 (Free Thyroxine) 11/30/22 E03.9 - Hypothyroidism, unspecified, D64.9 - Anemia, unspecified, I10 - Essential (primary) hypertension, M79.7 - Fibromyalgia, R47.89 - Other speech disturbances Lipid Panel 11/30/22 D64.9 - Anemia, unspecified, I10 - Essential (primary) hypertension, E03.9 - Hypothyroidism, unspecified, M79.7 - Fibromyalgia, R47.89 - Other speech disturbances Comprehensive [place]. Panel Fast 11/30/22 D64.9 - Anemia, unspecified, I10 - Essential (primary) hypertension, E03.9 - Hypothyroidism, unspecified, M79.7 - Fibromyalgia, R47.89 - Other speech disturbances Coding Level of Care Code Est Pt Level 3 (75497) Diagnoses Anemia, unspecified type D64.9 Anemia type: unspecified type Primary hypertension I10 Hypertension type: primary hypertension 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 E03.8; E06.3 Hypothyroidism type: due to Jamia's thyroiditis
[2022-11-30 10:46] VITALS: BP 108/64; PULSE 114; O2SAT 98; BMI 42.4
== END 2022-11-30 11:22 | disposition home or self-care (01) ==
LOC: HO.HMGC 10:43
PROVIDERS: PCP Internal Medicine; Visit Provider Internal Medicine
DX: D64.9 Anemia, unspecified (principal); I10 Essential (primary) hypertension; E03.8 Other specified hypothyroidism; E06.3 Autoimmune thyroiditis
CPT/HCPCS: 99213

== ENCOUNTER → 2022-12-03 13:36 | Outpatient (BNVA) | payer BC, SELFPAY | PROVIDERS: PCP Internal Medicine; Referring Provider Internal Medicine; Visit Provider Internal Medicine | DX: R94.31 Abnormal electrocardiogram [ECG] [EKG] (principal); I27.24 Chronic thromboembolic pulmonary hypertension; I95.9 Hypotension, unspecified; R00.0 Tachycardia, unspecified | CPT/HCPCS: 93005 ==

== ENCOUNTER → 2023-01-14 11:34 | Outpatient (BNVA) | payer BC, SELFPAY | PROVIDERS: PCP Internal Medicine; Referring Provider Internal Medicine; Visit Provider Internal Medicine Gastroenterology | DX: Z13.89 Encounter for screening for other disorder (principal) ==

== ENCOUNTER 2023-02-25 10:08 | Outpatient (REF) | payer BC, SELFPAY ==
--- NOTE | ~2023-02-25 | US_ITS ---
EXAMINATION: US ABDOMEN LIMITED WITH LIVER ELASTOGRAPHY CLINICAL INFORMATION: Hepatic steatosis. COMPARISON: None available. TECHNIQUE: Real-time imaging of the abdominal viscera. Noninvasive ultrasound liver fibrosis assessment is performed using Gilda ElastPQ point quantification shear wave elastography (2D-SWE) with a C5-2 MHz transducer. Multiple elastography samples are obtained. FINDINGS: PANCREAS: Largely obscured by overlying bowel gas. LIVER: The liver demonstrates contour and increased echogenicity. No focal lesion or intrahepatic biliary duct dilatation. The right lobe measures 18.3 cm in length. The left lobe measures 9.3 cm in length. Portal flow is towards the liver (hepatopetal). Shear wave liver elastography median stiffness is 1.81 m/s (reference: normal median stiffness is 1.3 m/s or less). IQR/median stiffness to assess sampling precision is 0.10 (reference: good quality data set is IQR/median stiffness of 0.15 or less). GALLBLADDER: Surgically absent. COMMON BILE DUCT: Normal in caliber measuring 0.3 cm in diameter. RIGHT KIDNEY: Normal. No hydronephrosis. No renal calculi or focal parenchymal lesions. The kidney measures 12.9 cm in maximum dimension. FREE FLUID: None. US/US abdomen malloy w elastography IMPRESSION: 1. There is hepatomegaly. As well, there is borderline splenomegaly. 2. There is generalized increase in hepatic echotexture, consistent with fatty infiltration or hepatocellular disease. Please correlate clinically. No focal hepatic mass or intrahepatic biliary dilatation is seen. 3. Liver elastography: Measurements are suggestive of compensated advanced chronic liver disease but need further test for confirmation. 4. The gallbladder is surgically absent. REFERENCE: Society of Radiologists in Ultrasound Liver Stiffness Thresholds (2020): LIVER STIFFNESS THRESHOLDS: *Liver Stiffness equal or less than 1.3 m/s: High probability of being normal. *Liver Stiffness less than 1.7 m/s: In the absence of other known clinical signs, rules out compensated advanced chronic liver disease. *Liver Stiffness 1.7-2.1 m/s: Suggestive of compensated advanced chronic liver disease but need further test for confirmation. *Liver Stiffness over 2.1 m/s: Rules in compensated advanced chronic liver disease. *Liver Stiffness over 2.4 m/s: Suggestive of clinically significant portal hypertension. QUALITY OF DATA SET: *IQR/Median value equal or less than 0.15 implies a quality data set. *IQR/Median value over 0.15 implies a poor quality data set. SIGNIFICANT CHANGE FROM PRIOR EXAM: Significant change if liver stiffness measurement is 10% or greater from prior exam. OTHER CONSIDERATIONS: The stage of liver fibrosis may be overestimated in the setting of acute hepatitis, liver inflammation, elevated liver function tests, hepatic vascular congestion, obstructive cholestasis, non-fasting state, and infiltrative diseases such as amyloidosis and lymphoma. In some patients with NAFLD, the liver stiffness thresholds for compensated advanced chronic liver disease may be lower. In causes other than viral hepatitis and NAFLD, liver stiffness thresholds are not well established.
== END 2023-02-25 10:09 | disposition home or self-care (01) ==
LOC: HO.US 10:08
PROVIDERS: PCP Internal Medicine; Visit Provider Internal Medicine Gastroenterology
DX: K76.0 Fatty (change of) liver, not elsewhere classified (principal)
CPT/HCPCS: 76705; 76981

== ENCOUNTER 2023-02-25 10:59 | Outpatient (REF) | payer BC, SELFPAY ==
[2023-02-25 11:21] LABS: MANUAL DIFF FLAG NO
[2023-02-25 11:30] LABS: Basophils Percent Auto 0.7 % (0-2); Eosinophils Absolute Auto 0.3 X10*3/uL (0.0-0.4); Eosinophils Percent Auto 4.9 % (0-4); Hematocrit 42.7 % (37.0-47.0); Hemoglobin 13.5 g/dl (12.0-16.0); Imm Gran Abs Auto 0.01 X10*3/uL (0.00-0.03); Imm Gran Pct Auto 0.2 % (0.0-0.4); Lymphocytes Absolute Auto 1.2 X10*3/uL (1.2-4.9); Lymphocytes Percent Auto 21.3 % (20-40); Mean Corpuscular HGB Conc 31.6 g/dl (31.0-35.0); Mean Corpuscular Hemoglobin 29.9 pg (27.0-33.0); Mean Corpuscular Volume 94.5 fL (80.0-98.0); Mean Platelet Volume 8.7 fL (9.4-12.3); Monocytes Absolute Auto 0.5 X10*3/uL (0.1-1.2); Monocytes Percent Auto 8.3 % (2-11); Neutrophils Absolute Auto 3.7 x10*3/uL (2.0-8.3); Neutrophils Percent Auto 64.6 % (45-73); Platelet Count 236 X10*3/uL (160-400); Red Blood Count 4.52 X10*6/uL (4.20-5.50); Red Cell Distribution Width 13.6 % (11.0-16.0); White Blood Count 5.7 X10*3/uL (4.8-10.8)
[2023-02-25 11:34] LABS: INTERNATIONAL NORM RATIO 1.2 (0.9-1.1)
[2023-02-25 11:40] LABS: Ammonia 24 umol/L (13-55)
[2023-02-25 12:13] LABS: Alanine Aminotransferase 19 U/L (0-31); Albumin Level 4.1 g/dL (3.5-5.0); Alkaline Phosphatase 99 U/L (39-117); Anion Gap 10 (12-20); Aspartate Amino Transferase 19 U/L (5-31); Bilirubin Total 0.6 mg/dL (0.0-1.0); Blood Urea Nitrogen 15 mg/dL (9-16); Calcium 9.4 mg/dL (8.4-10.2); Carbon Dioxide 31 mmol/L (22-29); Chloride 107 mmol/L (96-108); Cholesterol 210 mg/dL; Estimated Glomerular Filt Rate > 60; Glucose Fasting 101 mg/dL (60-99); HDL Cholesterol 65 mg/dL; LDL Cholesterol Calculated 133 mg/dl; Potassium 4.9 mmol/L (3.3-5.1); Sodium 143 mmol/L (135-145); Total Protein 6.4 g/dL (6.5-8.0); Triglycerides 63 mg/dL
[2023-02-25 12:48] LABS: Folate 12.7 ng/mL (> or = 4.0); Free T4 (Free Thyroxine) 0.67 ng/dL (0.71-1.85); Vitamin B12 871 pg/mL (200-900); Vitamin D 25-OH Total 37.4 ng/mL (>30)
== END 2023-02-25 11:00 | disposition home or self-care (01) ==
LOC: HO.US 10:59
PROVIDERS: PCP Internal Medicine; Visit Provider Internal Medicine Gastroenterology
DX: D64.9 Anemia, unspecified (principal); E03.9 Hypothyroidism, unspecified; I10 Essential (primary) hypertension; M79.7 Fibromyalgia; R47.89 Other speech disturbances; K59.09 Other constipation; K76.0 Fatty (change of) liver, not elsewhere classified
CPT/HCPCS: 36415; 80053; 80061; 82140; 82306; 82607; 82746; 84439; 84443; 85025; 85610

== ENCOUNTER → 2023-03-09 12:29 | Outpatient (BNVA) | payer BC, SELFPAY | PROVIDERS: PCP Internal Medicine; Visit Provider Internal Medicine Gastroenterology ==

== ENCOUNTER 2023-07-29 09:00 | Outpatient (AMB) | payer BC, SELFPAY ==
[2023-07-29 09:01] VITALS: BP 120/70; PULSE 117; O2SAT 99; BMI 38.3
--- NOTE | 2023-07-29 09:01 | MHC.PC.OV ---
Vital Signs 07/29/23 09:01 Height 5 ft 5 in Weight 230 lb BMI 38.3 BP 120/70 Blood Pressure Location Rt brachial Position Sitting Pulse 117 H Pulse Source Pulse Oximeter Pulse Oximetry (%) 99 Oxygen Delivery Method Room Air Intake Visit Reasons: Jarrod Pericardia hematoma, 07/12/23 Intake Note: patient is here today pericardia hematoma on 07/12/23 Allergies Sulfa (Sulfonamide Antibiotics) Allergy (Intermediate, Verified 12/14/23 23:11) RASH/SWELLING/THROAT CLOSING Medication List - Last Reconciled 07/29/23 by Alisha Worley MD acetaminophen (Tylenol Extra Strength) 1,000 mg PO Q6H PRN ascorbic acid (vitamin C) 1,000 mg PO DAILY aspirin (Adult Aspirin Regimen) 81 mg PO DAILY baclofen 10 mg PO TID PRN 90 days clonazepam 1 mg PO .q 6 hrs docusate sodium (Colace) 100 mg PO BID ferrous sulfate 325 mg PO DAILY gabapentin 600 mg PO TID L. gasseri-B. bifidum-B longum 1.5 billion cell 1 cap PO DAILY lamotrigine 100 mg PO DAILY levothyroxine 250 mcg (2 x 125 mcg) PO DAILY 90 days lisdexamfetamine 70 mg PO QAM magnesium oxide 500 mg PO DAILY methylphenidate HCl 40 mg PO QAM midodrine 5 mg PO TID mirabegron ER (Myrbetriq) 50 mg PO DAILY phenazopyridine (Pyridium) 200 mg PO TID 3 days polyethylene glycol 3350 (Miralax) 17 grams PO BID quetiapine 800 mg PO BEDTIME quetiapine 200 mg PO BEDTIME rivaroxaban 20 mg PO DAILY Saccharomyces boulardii (Daily Probiotic (S. boulardii)) 5,000 mmu cells PO DAILY sennosides (senna) 8.6 mg PO DAILY 3 months ziprasidone HCl 40 mg PO Tobacco use date assessed: 07/29/23 Dental Screening Dental Screen Date: 07/29/23 Did you have a dental visit in the last 12 months?: Yes Did you have a dental problem in the last 6 months where you did not have access to dental care?: No Was dental information given to patient?: Patient has dentist HPI Jarrod, Pericardia hematoma, 07/12/23 HPI Details 62-year-old female with history of bipolar disorder, major depression with anxiety, history of breast cancer, history of pulmonary emboli, has obstructive sleep apnea on BiPAP, morbid obesity, history of left lung adenocarcinoma s/p VATS in 2018, has pulmonary artery hypertension and has history of lap band with paraesophageal hernia repair [address] Magdaleno, history of right hip infection after total on hip replacement, here today for follow-up after recent admission at [facility] , where she was found to have a large pericardial hematoma with RA/RV compression, spontaneous hemorrhagic pericardial effusion 07/06/2023 . She underwent emergency evacuation of pericardial hematoma 07/06/[address] Coffey. A repeat CT chest 07/19/2023 showed no pericardial effusion. She was seen by Hematology and restarted back on Xarelto, and was discharged home improved with VNA services, advised to follow-up with Cardiology and to start cardiac rehab. At present patient states that she is feeling better, vital signs were stable with O2 sat 99% on room air. Heart rate however was noted to be 117 beats per minute. [facility] Medical History (Updated 12/14/23 @ 11:31 by Alisha Worley MD) Skin lesion of chest wall Sinus tachycardia Pleural effusion, right Pericardial hematoma Bilateral knee pain Word finding difficulty Right hip pain ADD (attention deficit disorder) Bipolar disorder Dependence on supplemental oxygen Nonscarring hair loss Morbid obesity History of pneumothorax History of pulmonary embolism Chronic thromboembolic pulmonary hypertension History of right breast cancer (~1998) Gallstones Migraine headache Anemia Fatigue Hypothyroidism Lung cancer (~2017) Obstructive sleep apnea (adult) (pediatric) Surgical History History of open heart surgery History of right breast biopsy (~1998) History of colonoscopy History of laparoscopic adjustable gastric banding (~2009) History of cholecystectomy (~2001) History of lobectomy of lung (~2017) History of total right hip replacement (~2012) History of lumpectomy of right breast Family History Father Stomach cancer Stroke CAD (coronary artery disease) Heart disease Hyperlipidemia CVD (cardiovascular disease) Mother Hyperlipidemia HTN (hypertension) History of TIA (transient ischemic attack) Vascular dementia Mental illness in member of household Sister Rheumatoid arthritis Maternal Aunt Breast cancer Social History Housing: House Alcohol intake: current Alcohol intake frequency: holidays/special occasions only Patient Tobacco Use Status: Former Tobacco user Quit Date: 1997 Years Smoked: 12 +/- e-Cigarette/Vaping Use: Never Used Second Hand Smoke Exposure: No Current occupational status: other 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 1. Little interest or pleasure in doing things: not at all 2. Feeling down, depressed, or hopeless: not at all 3. Trouble falling or staying asleep, or sleeping too much: not at all 4. Feeling tired or having little energy: not at all 5. Poor appetite or overeating: not at all 6. Feeling bad about yourself - or that you are a failure or have let yourself or your family down: not at all 7. Trouble concentrating on things, such as reading the newspaper or watching television: not at all 8. Moving or speaking so slowly that other people could have noticed. Or the opposite - being so fidgety or restless that you have been moving around a lot more than usual: not at all 9. Thoughts that you would be better off or of hurting yourself in some way: not at all Total score: 0 Depression Screening Interpretation: Negative Depression Screening Done: Yes 43455 - PHQ-9 Billing: Yes Source: Developed by Drs. Jose Braden, Romelia Hawkins, Chetan Jones and colleagues, with an educational hany from [employer]. Thrive Questionnaire Date Thrive assessed: 07/29/23 I am a: Patient What is your living situation today?: I have a steady place to live Within the past 12 months, did the food you bought not last and you didn't have the money to get more?: Never true Within the past 12 months, did you worry whether your food would run out before you got money to buy more?: Never true Do you have trouble paying for medicines?: No Do you have trouble getting transportation to medical appointments?: No Do you have trouble paying your heating and electricity bill?: No Do you have trouble taking care of your child, family member or friend?: No Do you have trouble with day-to-day activities such as bathing, preparing meals, shopping, managing finances, etc.?: Yes Are you currently unemployed and looking for a job?: No Are you interested in more education?: No AUDIT C Alcohol Use Questionnaire (AUDIT-C) 1. How often do you have a drink containing alcohol?: Never Total Score: 0 MICAH-7 AMB Questionnaire MICAH-7 Date MICAH - 7 assessed: 07/29/23 Feeling nervous, anxious, or on edge: 1 = Several days Not being able to stop or control worryin = Several days Worrying too much about different things: 1 = Several days Trouble relaxin = Not at all Being so restless that it is hard to sit still: 0 = Not at all Becoming easily annoyed or irritable: 0 = Not at all Feeling afraid as if something awful might happen: 0 = Not at all Total MICAH-7 score (0-4 normal; 5-9 mild; 10-14 moderate; 15-21 severe): 3 Source: Developed by Drs. Jose Braden, Romelia Hawkins, Chetan Jones and colleagues, with an educational hany from [employer]. MICAH-7 Assessment Billing MICAH-7 Assessment Tool: MICAH-7 Assessment 52415 Review of Systems Const Denies fatigue, Denies fever(s), Denies headache(s) and Denies weakness Eyes Denies change in vision ENT Denies dizziness and Denies headache(s) Card Denies chest pain, Denies chest pain with activity, Denies syncope, Denies pedal edema, Denies lightheadedness, Denies dyspnea on exertion and Denies orthopnea Resp Denies cough and Denies dyspnea on exertion GI Denies hematochezia and Denies change in stool character Reports no additional complaints Musc Denies muscle cramps, Denies numbness and Denies radiating pain into limb Skin/Breast Denies breast pain, Denies breast mass, Denies lesions and Denies rash Neuro Denies dizziness, Denies syncope, Denies headache(s), Denies numbness and Denies weakness Psych Reports no additional complaints Endo Denies fatigue Manuel/Lymph Reports no additional complaints Aller/Immun Reports no additional complaints Physical exam (Primary Care) Vital Signs: Last Vital Signs Pulse 117 H 07/29/23 09:01 BP 120/70 07/29/23 09:01 Pulse Ox 99 07/29/23 09:01 Oxygen Delivery Method Room Air 07/29/23 09:01 BMI result Body Mass Index 38.3 Tobacco/Smoking Status: Tobacco use Status Tobacco use date assessed 07/29/23 07/29/23 09:04 Patient Tobacco Use Status Former Tobacco user 07/29/23 09:04 e-Cigarette/Vaping Use Never Used 07/29/23 09:04 PHQ-9: PHQ-9 Score PHQ-9: Total score 0 07/29/23 09:49 Depression Screening Interpretation: Negative Thrive Assessment: Date of Thrive Assessment Date Thrive assessed 07/29/23 07/29/23 09:49 Const General: comfortable, no acute distress and alert Orientation/consciousness: patient oriented x3 HENMT Ears: external ears normal General nose exam: Normal external nose present Mouth: Normal oral and palatal mucosa present, oropharynx normal and moist mucous membranes Eyes General: appearance normal, both eyes and all related structures Conjunctivae: conjunctivae normal Sclerae: sclerae normal Pupils: Equal, round and reactive pupils present EOM: EOMs intact bilaterally Neck Neck: Yes full ROM, Yes no lymphadenopathy and Yes supple Resp Effort & Inspection: normal respiratory effort and able to speak in complete sentences Auscultation: clear to auscultation bilaterally Cardio Rate: tachycardic Rhythm: regular rhythm Heart sounds: S1 normal heart sound present and S2 normal heart sound present GI Palpation (GI): Soft to palpation, nontender and no masses Auscultation: normal bowel sounds Skin General skin exam: no rashes or lesions noted Neuro General: patient oriented x3, moves all extremities, Normal light touch and pain sensation and no focal motor deficits Cranial nerves: Yes CN's II-XII intact bilaterally and Yes Equal, round and reactive pupils present Cognition (Neuro): normal cognition Extrem General: Yes no joint enlargement, Yes no clubbing, cyanosis or edema and Yes no calf tenderness Psych Appearance: grossly normal and well kempt Mental Status: mental status grossly normal Speech and movement: Normal speech and movement present Affect: normal affect Attitude: cooperative Thought process: Normal thought process present Thought content: Normal thought content present Assessment and Plan Assessment & Plan (1) Pericardial hematoma: Code(s): I31.2 - Hemopericardium, not elsewhere classified Plan: Resolved, continue with regular follow-up with Cardiology, to start cardiac rehab (2) Sinus tachycardia: Code(s): R00.0 - Tachycardia, unspecified Plan: EKG done showed presence of sinus tachycardia with possible left atrial enlargement, and RSR pattern in V1, which is new as compared to EKG of 12/14/2022. Patient already has an appointment to see Dr. Cook in August after her Holter monitor is completed. Unable to take any metoprolol due to low blood pressure, tachycardia could also be due to her psych meds particularly methylphenidate, advised to discuss with her psychiatrist regarding possible med medication change or adjustment (3) History of pulmonary embolism: Comment: (right sided PE [after LLL lobectomy]- 09/2018) Code(s): Z86.711 - Personal history of pulmonary embolism Plan: Currently on Xarelto and started on aspirin 81 mg daily. 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 Qualified Code(s): E03.8 - Other specified hypothyroidism; E06.3 - Autoimmune thyroiditis Plan: Continue with current dose of levothyroxine (7) Obstructive sleep apnea (adult) (pediatric): Code(s): G47.33 - Obstructive sleep apnea (adult) (pediatric) (8) Chronic thromboembolic pulmonary hypertension: Code(s): I27.24 - Chronic thromboembolic pulmonary hypertension Plan: Followed by cardiology Medications: New ferrous sulfate 325 mg PO DAILY magnesium oxide 500 mg PO DAILY Coding Level of Care Code Est Pt Level 4 (26497) Diagnoses Pericardial hematoma I31.2 Sinus tachycardia R00.0 History of pulmonary embolism Z86.711 ADD (attention deficit disorder) F98.8 Bipolar disorder F31.9 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
== END 2023-07-29 10:57 | disposition home or self-care (01) ==
PROVIDERS: PCP Internal Medicine; Visit Provider Internal Medicine
DX: I31.2 Hemopericardium, not elsewhere classified (principal); R00.0 Tachycardia, unspecified; Z86.711 Personal history of pulmonary embolism; F98.8 Other specified behavioral and emotional disorders with onset usually occurring in childhood and adolescence; F31.9 Bipolar disorder, unspecified; E03.8 Other specified hypothyroidism; E06.3 Autoimmune thyroiditis; G47.33 Obstructive sleep apnea (adult) (pediatric); I27.24 Chronic thromboembolic pulmonary hypertension
CPT/HCPCS: 96127; 99214; 99499

== ENCOUNTER → 2023-08-25 13:04 | Outpatient (REF) | payer BC, SELFPAY ==
--- NOTE | 2023-08-25 13:07 | HM_ITS ---
* Total monitoring time 3 days. * Underlying rhythm is sinus tachycardia. Average ventricular rate 103/Min. Range 71 to 144/Min. * 53% of the time, rate > 100/Min. * Rare supraventricular and ventricular ectopy. * No significant pauses or AV blocks. * Diary mentions 'no symptoms'. MTDD
== END ==
LOC: HO.CARD 13:04
PROVIDERS: PCP Internal Medicine; Visit Provider Internal Medicine
DX: R00.0 Tachycardia, unspecified (principal); I49.1 Atrial premature depolarization; I49.3 Ventricular premature depolarization
CPT/HCPCS: 93242

== ENCOUNTER → 2023-08-25 13:07 | Outpatient (BNV) | payer BC, SELFPAY | PROVIDERS: PCP Internal Medicine; Visit Provider Internal Medicine | DX: R00.0 Tachycardia, unspecified (principal) | CPT/HCPCS: 93244 ==

== ENCOUNTER 2023-09-13 12:34 | Outpatient (AMB) | payer BC, SELFPAY ==
--- NOTE | 2023-09-13 12:51 | MHC.OFFVIS ---
Intake Vital Signs 09/13/23 12:52 Height 5 ft 5 in Weight 229 lb 4.492 oz BMI 38.2 BP 122/56 L Blood Pressure Location Lt brachial Position Sitting Pulse 118 H Intake Visit Reasons: follow up testing. Intake Note: follow up [place] Required: No Accompanied by: Self / Same As Patient Allergies Sulfa (Sulfonamide Antibiotics) Allergy (Intermediate, Verified 09/13/23 12:55) RASH/SWELLING/THROAT CLOSING Medication List - Last Reconciled 09/13/23 by Matheus Cook MD acetaminophen (Tylenol Extra Strength) 1,000 mg PO Q6H PRN ascorbic acid (vitamin C) 1,000 mg PO DAILY aspirin (Adult Aspirin Regimen) 81 mg PO DAILY baclofen 10 mg PO TID PRN 90 days clonazepam 1 mg PO .q 6 hrs docusate sodium (Colace) 100 mg PO BID ferrous sulfate 325 mg PO DAILY gabapentin 600 mg PO TID L. gasseri-B. bifidum-B longum 1.5 billion cell 1 cap PO DAILY lamotrigine 100 mg PO DAILY levothyroxine 250 mcg (2 x 125 mcg) PO DAILY 90 days lisdexamfetamine 70 mg PO QAM magnesium oxide 500 mg PO DAILY methylphenidate HCl 40 mg PO QAM midodrine 10 mg PO TID mirabegron ER (Myrbetriq) 50 mg PO DAILY polyethylene glycol 3350 (Miralax) 17 grams PO BID quetiapine 800 mg PO BEDTIME quetiapine 200 mg PO BEDTIME riociguat (Adempas) 1.5 mg PO rivaroxaban 20 mg PO DAILY Saccharomyces boulardii (Daily Probiotic (S. boulardii)) 5,000 mmu cells PO DAILY sennosides (senna) 8.6 mg PO DAILY 3 months ziprasidone HCl 40 mg PO HPI HPI Comments History of Present Illness Details Delores returns for follow-up. Complex medical history. She used to be a patient at [facility] Cardiology in past. To recall, she was diagnosed with what she describes as 'drop attacks' more than 15 years ago. At that time, she was started on metoprolol and Florinef. Not on these anymore. No further episodes since that time. History of lung cancer and has undergone left lower lobectomy few years ago. Subsequently, pulmonary embolism and then diagnosed with chronic thromboembolic pulmonary hypertension. She goes to [facility] in that regard. She is maintained on Xarelto. From the cardiac standpoint, no known coronary disease or cardiomyopathy. Since last seen, she underwent removal of right total hip arthroplasty and placement of antibiotic cement spacer surgery. According to patient, surgery itself was uneventful but she was hospitalized again with low blood pressure, dizziness. She was requiring Levophed in the ER. Then metoprolol was stopped. She believes that the low blood pressure could have been due to not taking midodrine but not clear. Lasix dose was then reduced. Also on midodrine. After, it seems that she was admitted with high pulse rate and was diagnosed with pericardial hematoma worrisome for cardiac compression, for which she underwent sternotomy and mediastinal washout. Post discharge, she has mostly recovered, but the high pulse rate continues to be an issue. Patient herself states she is okay. [facility] Medical History (Updated 09/13/23 @ 15:00 by Matheus Cook MD) Sinus tachycardia Pleural effusion, right Pericardial hematoma Bilateral knee pain Word finding difficulty Right hip pain ADD (attention deficit disorder) Bipolar disorder Dependence on supplemental oxygen Nonscarring hair loss Morbid obesity History of pneumothorax History of pulmonary embolism Chronic thromboembolic pulmonary hypertension History of right breast cancer (~1998) Gallstones Migraine headache Anemia Fatigue Hypothyroidism Lung cancer (~2018) Obstructive sleep apnea (adult) (pediatric) Surgical History (Updated 09/13/23 @ 12:58 by Nellie Bain) History of open heart surgery History of right breast biopsy (~1998) History of colonoscopy History of laparoscopic adjustable gastric banding (~2009) History of cholecystectomy (~2001) History of lobectomy of lung (~2017) History of total right hip replacement (~2012) History of lumpectomy of right breast Family History Father Stomach cancer Stroke CAD (coronary artery disease) Heart disease Hyperlipidemia CVD (cardiovascular disease) Mother Hyperlipidemia HTN (hypertension) History of TIA (transient ischemic attack) Vascular dementia Mental illness in member of household Sister Rheumatoid arthritis Maternal Aunt Breast cancer Social History Housing: House Alcohol intake: current Alcohol intake frequency: holidays/special occasions only Patient Tobacco Use Status: Former Tobacco user Quit Date: 1997 Years Smoked: 12 +/- e-Cigarette/Vaping Use: Never Used Second Hand Smoke Exposure: No Current occupational status: other 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 needs: No Hearing needs: No Vision needs: No Review of Systems Const Denies weakness ENT Denies dizziness Card Denies chest pain, Denies chest pain with activity, Denies syncope, Denies rapid heart rate, Denies pedal edema, Denies edema, Denies leg edema, Denies lightheadedness, Denies palpitations, Denies dyspnea, Denies dyspnea on exertion and Denies orthopnea Resp Denies cough, Denies dyspnea and Denies dyspnea on exertion GI Denies hematochezia and Denies change in stool character Musc Denies abnormal gait, Denies muscle cramps, Denies muscle weakness, Denies numbness, Denies radiating pain into limb and Denies tingling Neuro Denies abnormal gait, Denies dizziness, Denies syncope, Denies numbness, Denies tingling and Denies weakness Endo Denies palpitations Physical Exam Vital Signs: Last Vital Signs Pulse 118 H 09/13/23 12:52 BP 122/56 L 09/13/23 12:52 BMI result Body Mass Index 38.2 Const General: comfortable and no acute distress Orientation/consciousness: patient oriented x3 HEENT Other: Unremarkable Head: Yes normal to inspection Neck Neck: Yes normal visual inspection Chest Chest palpation & inspection: normal inspection of the chest Resp Auscultation: clear to auscultation bilaterally Cardio Palpation: normal PMI Heart sounds: S1 normal heart sound present, S2 normal heart sound present, no gallops, no murmurs and no rubs GI Palpation (GI): Soft to palpation Back/Spine/Pelvis Other: unremarkable Skin General skin exam: no rashes or lesions noted Neuro General: patient oriented x3 Extrem General: Yes normal to inspection Psych Mental Status: mental status grossly normal Assessment & Plan Assessment & Plan (1) Arterial hypotension: Code(s): I95.9 - Hypotension, unspecified (2) Chronic thromboembolic pulmonary hypertension: Code(s): I27.24 - Chronic thromboembolic pulmonary hypertension (3) Sinus tachycardia: Code(s): R00.0 - Tachycardia, unspecified (4) Mediastinal hematoma: Code(s): S27.892A - Contusion of other specified intrathoracic organs, initial encounter Qualifiers: Encounter type: initial encounter Qualified Code(s): S27.892A - Contusion of other specified intrathoracic organs, initial encounter Plan Cardiac studies reviewed. In the most recent echocardiogram from [facility], LVEF 60-60%. No wall motion abnormalities. Mild flattening of interventricular septum thought to be from RV volume overload. Dilated left atrium. No significant valvular issues. Right ventricle moderate to severely dilated. Reduced function. Accurate pulmonary artery pressure could not be obtained. Cardiac catheterization from 2019 shows no significant CAD. Hence there is no evidence of coronary disease or cardiomyopathy. With regard to the chronic sinus tachycardia, unable to take beta-blockers due to low blood pressure. She is also on midodrine. Not clear if she will benefit from an agent like Corlanor. This could be multifactorial from some combination of deconditioning, compromised pulmonary status from lobectomy, history of pulmonary emboli as well as autonomic insufficiency. She is also on medications like Lisdexamfetamine and Methylphenidate which could possibly cause tachycardia. Hence she will discuss with her psychiatrist about this. If able, some of these should be cut back or stop. For hypotension issues, continue the midodrine. Has taken Florinef in the past but nothing recently. We will plan on seeing her back in about 3-4 months. Medications: Changed From midodrine 5 mg PO TID 270 tabs 3RF To midodrine 10 mg PO TID Coding Level of Care Code Est Pt Level 4 (96937) Diagnoses Arterial hypotension I95.9 Chronic thromboembolic pulmonary hypertension I27.24 Sinus tachycardia R00.0 Mediastinal hematoma, initial encounter S27.892A Encounter type: initial encounter
[2023-09-13 12:52] VITALS: BP 122/56; PULSE 118; BMI 38.2
== END 2023-09-13 13:24 | disposition home or self-care (01) ==
PROVIDERS: PCP Internal Medicine; Visit Provider Internal Medicine
DX: I95.9 Hypotension, unspecified (principal); I27.24 Chronic thromboembolic pulmonary hypertension; R00.0 Tachycardia, unspecified; S27.892A Contusion of other specified intrathoracic organs, initial encounter
CPT/HCPCS: 99214

== ENCOUNTER → 2023-09-13 12:34 | Outpatient (BNVA) | payer BC, SELFPAY | PROVIDERS: PCP Internal Medicine; Visit Provider Internal Medicine ==

== ENCOUNTER 2023-12-14 10:06 | Outpatient (AMB) | payer BC, SELFPAY ==
[2023-12-14 10:21] VITALS: BP 120/70; PULSE 107; O2SAT 96; BMI 37.3
--- NOTE | 2023-12-14 10:21 | A.OFFPC_ITS ---
Vital Signs 12/14/23 10:21 Height 5 ft 5 in Weight 224 lb BMI 37.3 BP 120/70 Blood Pressure Location Lt radial Position Sitting Pulse 107 H Pulse Source Pulse Oximeter Pulse Oximetry (%) 96 Oxygen Delivery Method Room Air Intake Visit Reasons: f/u urgent care [facility] sore Rt rib Intake Note: Pt is here today to f/u [facility] urgent care sore Rt rib Allergies Sulfa (Sulfonamide Antibiotics) Allergy (Intermediate, Verified 12/14/23 23:11) RASH/SWELLING/THROAT CLOSING Medication List - Last Reconciled 12/14/23 by Alisha Worley MD acetaminophen (Tylenol Extra Strength) 1,000 mg PO Q6H PRN ascorbic acid (vitamin C) 1,000 mg PO DAILY aspirin (Adult Aspirin Regimen) 81 mg PO DAILY baclofen 10 mg PO TID PRN 90 days clonazepam 1 mg PO .q 6 hrs docusate sodium (Colace) 100 mg PO BID ferrous sulfate 325 mg PO DAILY gabapentin 600 mg PO TID L. gasseri-B. bifidum-B longum 1.5 billion cell 1 cap PO DAILY lamotrigine 100 mg PO DAILY levothyroxine 250 mcg (2 x 125 mcg) PO DAILY magnesium oxide 500 mg PO DAILY methylphenidate HCl 20 mg PO QAM midodrine 10 mg PO TID mirabegron ER (Myrbetriq) 50 mg PO DAILY polyethylene glycol 3350 (Miralax) 17 grams PO BID quetiapine 800 mg PO BEDTIME quetiapine 200 mg PO BEDTIME riociguat (Adempas) 2 mg PO rivaroxaban 20 mg PO DAILY Saccharomyces boulardii (Daily Probiotic (S. boulardii)) 5,000 mmu cells PO DAILY sennosides (senna) 8.6 mg PO DAILY 3 months ziprasidone HCl 40 mg PO Tobacco use date assessed: 12/14/23 Dental Screening Dental Screen Date: 12/14/23 Did you have a dental visit in the last 12 months?: Yes Did you have a dental problem in the last 6 months where you did not have access to dental care?: Yes Was dental information given to patient?: Patient has dentist HPI f/u urgent care [facility] sore Rt rib HPI Details 63-year-old lady with history of stage I adenocarcinoma of the lung , and pulmonary hypertension s/p da Kimberly left lower lobectomy and mediastinal lymphadenectomy on 09/22/2018, history of pneumothorax and pulmonary embolus, history of recurrent infection of hip replacement, has history of bipolar 1 disorder followed by [facility], , has hypothyroidism, history of rosacea, here today complaining burning/tingling pain in her right posterior ribs which has been present now for the last 3 months.. Initially she was told by urgent care that was just a pulled muscle, but she noticed a sore appearing on her right posterior chest wall with crusting, appearing about a week ago.. No history of trauma, no difficulty or pain with breathing. She already made an appointment with [facility] on 12/21/2023. A chest x-ray was done at urgent care which showed no acute abnormality in the bones and soft tissue, normal heart size , normal mediastinal and hilar contour and no pneumothorax or pleural effusion. [facility] Medical History (Updated 12/14/23 @ 23:26 by Alisha Worley MD) Skin lesion of chest wall Sinus tachycardia Pleural effusion, right Pericardial hematoma Bilateral knee pain Word finding difficulty ADD (attention deficit disorder) Bipolar disorder Dependence on supplemental oxygen Nonscarring hair loss Morbid obesity History of pneumothorax History of pulmonary embolism Chronic thromboembolic pulmonary hypertension History of right breast cancer (~1998) Gallstones Migraine headache Anemia Fatigue Hypothyroidism Lung cancer (~2017) Obstructive sleep apnea (adult) (pediatric) Surgical History History of open heart surgery History of right breast biopsy (~1998) History of colonoscopy History of laparoscopic adjustable gastric banding (~2009) History of cholecystectomy (~2001) History of lobectomy of lung (~2017) History of total right hip replacement (~2012) History of lumpectomy of right breast Family History Father Stomach cancer Stroke CAD (coronary artery disease) Heart disease Hyperlipidemia CVD (cardiovascular disease) Mother Hyperlipidemia HTN (hypertension) History of TIA (transient ischemic attack) Vascular dementia Mental illness in member of household Sister Rheumatoid arthritis Maternal Aunt Breast cancer Social History Housing: House Alcohol intake: current Alcohol intake frequency: holidays/special occasions only Patient Tobacco Use Status: Former Tobacco user Quit Date: 1997 Smoked: 12 +/- e-Cigarette/Vaping Use: Never Used Second Hand Smoke Exposure: No Current occupational status: other 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 1. Little interest or pleasure in doing things: not at all 2. Feeling down, depressed, or hopeless: not at all 3. Trouble falling or staying asleep, or sleeping too much: several days 4. Feeling tired or having little energy: several days 5. Poor appetite or overeating: not at all 6. Feeling bad about yourself - or that you are a failure or have let yourself or your family down: several days 7. Trouble concentrating on things, such as reading the newspaper or watching television: several days 8. Moving or speaking so slowly that other people could have noticed. Or the opposite - being so fidgety or restless that you have been moving around a lot more than usual: not at all 9. Thoughts that you would be better off or of hurting yourself in some way: not at all Total score: 4 Depression Screening Interpretation: Negative Depression Screening Done: Yes 68687 - PHQ-9 Billing: Yes Source: Developed by Drs. Jose Braden, Romelia Hawkins, Chetan Jones and colleagues, with an educational hany from [employer]. Thrive Questionnaire Date Thrive assessed: 12/14/23 I am a: Patient What is your living situation today?: I have a steady place to live Within the past 12 months, did the food you bought not last and you didn't have the money to get more?: Never true Within the past 12 months, did you worry whether your food would run out before you got money to buy more?: Never true Do you have trouble paying for medicines?: No Do you have trouble getting transportation to medical appointments?: No Do you have trouble paying your heating and electricity bill?: No Do you have trouble taking care of your child, family member or friend?: Yes Do you have trouble with day-to-day activities such as bathing, preparing meals, shopping, managing finances, etc.?: Yes Are you currently unemployed and looking for a job?: No Are you interested in more education?: No THRIVE Score: 0 AUDIT C Alcohol Use Questionnaire (AUDIT-C) 1. How often do you have a drink containing alcohol?: Never Total Score: 0 MICAH-7 AMB Questionnaire MICAH-7 Date MICAH - 7 assessed: 12/14/23 Feeling nervous, anxious, or on edge: 1 = Several days Not being able to stop or control worryin = Several days Worrying too much about different things: 1 = Several days Trouble relaxin = Several days Being so restless that it is hard to sit still: 0 = Not at all Becoming easily annoyed or irritable: 0 = Not at all Feeling afraid as if something awful might happen: 0 = Not at all Total MICAH-7 score (0-4 normal; 5-9 mild; 10-14 moderate; 15-21 severe): 4 Source: Developed by Drs. Jose Braden, Romelia Hawkins, Chetan Jones and colleagues, with an educational hany from [employer]. MICAH-7 Assessment Billing MICAH-7 Assessment Tool: MICAH-7 Assessment 94125 Review of Systems Const Denies body aches, Denies fever(s), Denies headache(s), Denies lethargy and Reports weight loss Eyes Denies change in vision ENT Denies dizziness and Denies headache(s) Card Denies chest pain, Denies chest pain with activity, Denies syncope, Reports rapid heart rate, Denies pedal edema, Denies irregular heart rhythm, Denies lightheadedness, Denies dyspnea and Denies dyspnea on exertion Resp Denies chest congestion, Denies cough, Denies hemoptysis, Denies pain on inspiration, Denies dyspnea, Denies dyspnea on exertion and Denies wheezing GI Denies abdominal pain, Denies bloating, Denies hematochezia, Denies change in bowel habits and Denies change in stool character Musc Reports as per HPI, Denies muscle cramps, Denies numbness, Denies radiating pain into limb and Denies tingling Skin/Breast Reports as per HPI Neuro Denies dizziness, Denies syncope, Denies headache(s), Denies numbness and Denies tingling Psych Reports no additional complaints Endo Reports no additional complaints Manuel/Lymph Reports no additional complaints Aller/Immun Denies wheezing Physical exam (Primary Care) Vital Signs: Last Vital Signs Pulse 107 H 12/14/23 10:21 BP 120/70 12/14/23 10:21 Pulse Ox 96 12/14/23 10:21 Oxygen Delivery Method Room Air 12/14/23 10:21 BMI result Body Mass Index 37.3 Tobacco/Smoking Status: Tobacco use Status Tobacco use date assessed 12/14/23 12/14/23 10:31 Patient Tobacco Use Status Former Tobacco user 12/14/23 10:22 e-Cigarette/Vaping Use Never Used 12/14/23 10:22 PHQ-9: PHQ-9 Score PHQ-9: Total score 4 12/14/23 10:55 Depression Screening Interpretation: Negative Thrive Assessment: Date of Thrive Assessment Date Thrive assessed 12/14/23 12/14/23 10:31 Const General: comfortable, no acute distress and alert Orientation/consciousness: patient oriented x3 Limitations: ambulation with walker HENMT Ears: external ears normal General nose exam: Normal external nose present Mouth: Normal oral and palatal mucosa present, oropharynx normal and moist mucous membranes Eyes General: appearance normal, both eyes and all related structures Neck Neck: Yes full ROM, Yes no lymphadenopathy and Yes supple Resp Effort & Inspection: normal respiratory effort and able to speak in complete sentences Auscultation: clear to auscultation bilaterally Cardio Rate: tachycardic Rhythm: regular rhythm Heart sounds: S1 normal heart sound present and S2 normal heart sound present GI Palpation (GI): Soft to palpation, nontender and no masses Auscultation: normal bowel sounds Skin Other: Crusted lesion, with surrounding erythema on right lower posterior chest wall, area nontender to palpation Neuro General: patient oriented x3, moves all extremities, Normal light touch and pain sensation and no focal motor deficits Cranial nerves: Yes CN's II-XII intact bilaterally Cognition (Neuro): normal cognition Extrem General: Yes no joint enlargement, Yes no clubbing, cyanosis or edema and Yes no calf tenderness Assessment and Plan Assessment & Plan (1) Skin lesion of chest wall: Code(s): L98.9 - Disorder of the skin and subcutaneous tissue, unspecified Plan: Has appointment with [facility] 12/21/2023 for further evaluation Coding Level of Care Code Est Pt Level 3 (64736) Diagnoses Skin lesion of chest wall L98.9 Additional Codes MICAH-7 Assessment Billing - MICAH-7 Assessment Tool: MICAH-7 Assessment 38586 ([id number])
== END 2023-12-14 12:34 | disposition home or self-care (01) ==
LOC: HO.HMGC 10:06
PROVIDERS: PCP Internal Medicine; Visit Provider Internal Medicine
DX: L98.9 Disorder of the skin and subcutaneous tissue, unspecified (principal)
CPT/HCPCS: 99213

== ENCOUNTER 2023-12-14 12:58 | Outpatient (AMB) | payer BC, SELFPAY ==
[2023-12-14 13:07] VITALS: BP 108/76; PULSE 108; BMI 37.5
--- NOTE | 2023-12-14 13:07 | A.OFFVIS_ITS ---
Intake Vital Signs 12/14/23 13:07 Height 5 ft 5 in Weight 225 lb 4.999 oz BMI 37.5 BP 108/76 Blood Pressure Location Lt brachial Position Sitting Pulse 108 H Intake Visit Reasons: 4 mth f/up Intake Note: 4 month follow up Security Incident Response Specialist Required: No Accompanied by: Spouse Allergies Sulfa (Sulfonamide Antibiotics) Allergy (Intermediate, Verified 12/14/23 13:13) RASH/SWELLING/THROAT CLOSING Medication List - Last Reconciled 12/14/23 by Matheus Cook MD acetaminophen (Tylenol Extra Strength) 1,000 mg PO Q6H PRN ascorbic acid (vitamin C) 1,000 mg PO DAILY baclofen 10 mg PO TID PRN 90 days clonazepam 1 mg PO .q 6 hrs docusate sodium (Colace) 100 mg PO BID ferrous sulfate 325 mg PO DAILY gabapentin 600 mg PO TID L. gasseri-B. bifidum-B longum 1.5 billion cell 1 cap PO DAILY lamotrigine 100 mg PO DAILY levothyroxine 250 mcg (2 x 125 mcg) PO DAILY magnesium oxide 500 mg PO DAILY methylphenidate HCl 20 mg PO QAM midodrine 10 mg PO TID mirabegron ER (Myrbetriq) 50 mg PO DAILY multivitamin (Daily Multi-Vitamin tablet) 1 tab PO DAILY polyethylene glycol 3350 (Miralax) 17 grams PO BID quetiapine 200 mg PO BEDTIME quetiapine 600 mg PO BEDTIME riociguat (Adempas) 2 mg PO rivaroxaban 20 mg PO DAILY Saccharomyces boulardii (Daily Probiotic (S. boulardii)) 5,000 mmu cells PO DAILY sennosides (senna) 8.6 mg PO DAILY 3 months ziprasidone HCl 40 mg PO HPI HPI Comments History of Present Illness Details Delores returns for follow-up. Complex medical history. She used to be a patient at [facility] in past. To recall, she was diagnosed with 'drop attacks' more than 15 years ago. At that time, she was started on metoprolol and Florinef. Not on these anymore. No further episodes since that time. History of lung cancer and has undergone left lower lobectomy few years ago. Subsequently, pulmonary embolism and then diagnosed with chronic thromboembolic pulmonary hypertension. She [facility] to [facility] in that regard. She is maintained on Xarelto. From the cardiac standpoint, no known coronary disease or cardiomyopathy. Recently underwent removal of right total hip arthroplasty and placement of antibiotic cement spacer surgery. According to patient, surgery itself was uneventful but she was hospitalized again with low blood pressure, dizziness. She was requiring Levophed in the ER. Then metoprolol was stopped. She believes that the low blood pressure could have been due to not taking midodrine but not clear. Lasix dose was then reduced. Also on midodrine. After that, she was admitted with high pulse rate and was diagnosed with pericar dial hematoma worrisome for cardiac compression, for which she underwent sternotomy and mediastinal washout. In the last few months, she states she is actually doing okay. The pulse rate still remains on the higher side but apart from that no specific cardiac symptoms. [facility] Medical History (Updated 12/14/23 @ 11:31 by Alisha Worley MD) Skin lesion of chest wall Sinus tachycardia Pleural effusion, right Pericardial hematoma Bilateral knee pain Word finding difficulty Right hip pain ADD (attention deficit disorder) Bipolar disorder Dependence on supplemental oxygen Nonscarring hair loss Morbid obesity History of pneumothorax History of pulmonary embolism Chronic thromboembolic pulmonary hypertension History of right breast cancer (~1998) Gallstones Migraine headache Anemia Fatigue Hypothyroidism Lung cancer (~2018) Obstructive sleep apnea (adult) (pediatric) Surgical History (Updated 09/13/23 @ 12:58 by Nellie Bain) History of open heart surgery History of right breast biopsy (~1998) History of colonoscopy History of laparoscopic adjustable gastric banding (~2009) History of cholecystectomy (~2001) History of lobectomy of lung (~2017) History of total right hip replacement (~2012) History of lumpectomy of right breast Family History Father Stomach cancer Stroke CAD (coronary artery disease) Heart disease Hyperlipidemia CVD (cardiovascular disease) Mother Hyperlipidemia HTN (hypertension) History of TIA (transient ischemic attack) Vascular dementia Mental illness in member of household Sister Rheumatoid arthritis Maternal Aunt Breast cancer Social History Housing: House Alcohol intake: current Alcohol intake frequency: holidays/special occasions only Patient Tobacco Use Status: Former Tobacco user Quit Date: 1997 Years Smoked: 12 +/- e-Cigarette/Vaping Use: Never Used Second Hand Smoke Exposure: No Current occupational status: other 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 needs: No Hearing needs: No Vision needs: Yes Review of Systems Const Denies weakness ENT Denies dizziness Card Denies chest pain, Denies chest pain with activity, Denies syncope, Denies pedal edema, Denies edema, Denies leg edema, Denies lightheadedness, Denies palpitations, Denies dyspnea on exertion and Denies orthopnea Resp Denies cough and Denies dyspnea on exertion GI Denies hematochezia and Denies change in stool character Musc Denies abnormal gait, Denies muscle cramps, Denies muscle weakness, Denies numbness, Denies radiating pain into limb and Denies tingling Neuro Denies abnormal gait, Denies dizziness, Denies syncope, Denies numbness, Denies tingling and Denies weakness Endo Denies palpitations Physical Exam Vital Signs: Last Vital Signs Pulse 108 H 12/14/23 13:07 BP 108/76 12/14/23 13:07 BMI result Body Mass Index 37.5 Const General: comfortable and no acute distress Orientation/consciousness: patient oriented x3 HEENT Other: Unremarkable Head: Yes normal to inspection Neck Neck: Yes normal visual inspection Chest Chest palpation & inspection: normal inspection of the chest Resp Auscultation: clear to auscultation bilaterally Cardio Palpation: normal PMI Heart sounds: S1 normal heart sound present, S2 normal heart sound present, no gallops, no murmurs and no rubs GI Palpation (GI): Soft to palpation Back/Spine/Pelvis Other: unremarkable Skin General skin exam: no rashes or lesions noted Neuro General: patient oriented x3 Extrem General: Yes normal to inspection Psych Mental Status: mental status grossly normal Assessment & Plan Assessment & Plan (1) Arterial hypotension: Code(s): I95.9 - Hypotension, unspecified (2) Sinus tachycardia: Code(s): R00.0 - Tachycardia, unspecified (3) Chronic thromboembolic pulmonary hypertension: Code(s): I27.24 - Chronic thromboembolic pulmonary hypertension (4) Mediastinal hematoma: Code(s): S27.892A - Contusion of other specified intrathoracic organs, initial encounter Qualifiers: Encounter type: initial encounter Qualified Code(s): S27.892A - Contusion of other specified intrathoracic organs, initial encounter Plan Cardiac studies reviewed. In the most recent echocardiogram from [facility], LVEF 60-60%. No wall motion abnormalities. Mild flattening of interventricular septum thought to be from RV volume overload. Dilated left atrium. No significant valvular issues. Right ventricle moderate to severely dilated. Reduced function. Accurate pulmonary artery pressure could not be obtained. Cardiac catheterization from 2019 shows no significant CAD. Hence there is no evidence of coronary disease or cardiomyopathy. With regard to the chronic sinus tachycardia, unable to take beta-blockers due to low blood pressure. She is also on midodrine. Suspect is multifactorial with some combination of deconditioning, compromised pulmonary status from ectopy, pulmonary embolism as well as autonomic insufficie ncy. Possible element of inappropriate sinus tachycardia. Medications may also play a role. She is come off some of her psychiatric medication and dose of methylphenidate has also been decreased. At this time, no further recommendation. With regard to hypotension issues, continue midodrine. Has taken Florinef in the past but not recently. With regard to activity, she can pursue gentle physical activity. If sinus tachycardia is too much of an issue, then may have to cut back. May target something like 20-30 beats increase in heart rate from her baseline. Discussed with significant other. Coding Level of Care Code Est Pt Level 4 (05844) Diagnoses Arterial hypotension I95.9 Sinus tachycardia R00.0 Chronic thromboembolic pulmonary hypertension I27.24 Mediastinal hematoma, initial encounter S27.896B Encounter type: initial encounter
== END 2023-12-14 13:36 | disposition home or self-care (01) ==
PROVIDERS: PCP Internal Medicine; Referring Provider Internal Medicine; Visit Provider Internal Medicine
DX: I95.9 Hypotension, unspecified (principal); R00.0 Tachycardia, unspecified; I27.24 Chronic thromboembolic pulmonary hypertension; S27.892A Contusion of other specified intrathoracic organs, initial encounter
CPT/HCPCS: 99214

== ENCOUNTER → 2023-12-14 12:58 | Outpatient (BNVA) | payer BC, SELFPAY | PROVIDERS: PCP Internal Medicine; Visit Provider Internal Medicine ==

== ENCOUNTER 2024-06-13 12:21 | Outpatient (AMB) | payer BC, SELFPAY ==
--- NOTE | 2024-06-13 12:26 | A.OFFVIS_ITS ---
Vital Signs 06/13/24 12:27 Height 5 ft 5 in Weight 227 lb 1.218 oz BMI 37.8 BP 110/78 Blood Pressure Location Lt brachial Position Sitting Pulse 92 Intake Visit Reasons: 6 mth f/.up Ultrasonic Solderer Required: No Accompanied by: Spouse Allergies Sulfa (Sulfonamide Antibiotics) Allergy (Intermediate, Verified 12/14/23 23:11) RASH/SWELLING/THROAT CLOSING Medication List - Last Reconciled 06/13/24 by Matheus Cook MD acetaminophen (Tylenol Extra Strength) 1,000 mg PO Q6H PRN amoxicillin 500 mg PO TID ascorbic acid (vitamin C) 1,000 mg PO DAILY baclofen 10 mg PO TID PRN 90 days clonazepam 1 mg PO .q 6 hrs docusate sodium (Colace) 100 mg PO BID ferrous sulfate 325 mg PO DAILY gabapentin 600 mg PO TID L. gasseri-B. bifidum-B longum 1.5 billion cell 1 cap PO DAILY lamotrigine 100 mg PO DAILY levothyroxine 250 mcg (2 x 125 mcg) PO DAILY magnesium oxide 500 mg PO DAILY methylphenidate HCl 20 mg PO QAM midodrine 10 mg PO TID 90 days mirabegron ER (Myrbetriq) 50 mg PO DAILY multivitamin (Daily Multi-Vitamin tablet) 1 tab PO DAILY polyethylene glycol 3350 (Miralax) 17 grams PO BID quetiapine 200 mg PO BEDTIME quetiapine 600 mg PO BEDTIME riociguat (Adempas) 2 mg PO sennosides (senna) 8.6 mg PO DAILY 3 months warfarin 5 mg PO Q OTHER DAY ziprasidone HCl 40 mg PO HPI Comments Details: Delores returns for follow-up. Complex medical history. She used to be a patient at [facility] in past. To recall, she was diagnosed with 'drop attacks' more than 15 years ago. At that time, she was started on metoprolol and Florinef. Not on these anymore. No further episodes since that time. History of lung cancer and has undergone left lower lobectomy few years ago. Subsequently, pulmonary embolism and then diagnosed with chronic thromboembolic pulmonary hypertension. She goes to [facility] in that regard. She is maintained on anti-coagulation. From the cardiac standpoint, no known coronary disease or cardiomyopathy. Recently underwent removal of right total hip arthroplasty and placement of antibiotic cement spacer surgery. According to patient, surgery itself was uneventful but she was hospitalized again with low blood pressure, dizziness. She was requiring Levophed in the ER. Then metoprolol was stopped. She believes that the low blood pressure could have been due to not taking midodrine but not clear. Lasix dose was then reduced. Also on midodrine. After that, she was admitted with high pulse rate and was diagnosed with pericardial hematoma worrisome for cardiac compression, for which she underwent sternotomy and mediastinal washout. After that, she states she is actually doing quite well. No recent issues over the last few months. [facility] Medical History (Updated 12/14/23 @ 23:26 by Alisha Worley MD) Skin lesion of chest wall Sinus tachycardia Pleural effusion, right Pericardial hematoma Bilateral knee pain Word finding difficulty ADD (attention deficit disorder) Bipolar disorder Dependence on supplemental oxygen Nonscarring hair loss Morbid obesity History of pneumothorax History of pulmonary embolism Chronic thromboembolic pulmonary hypertension History of right breast cancer (~1998) Gallstones Migraine headache Anemia Fatigue Hypothyroidism Lung cancer (~2017) Obstructive sleep apnea (adult) (pediatric) Surgical History History of open heart surgery History of right breast biopsy (~1998) History of colonoscopy History of laparoscopic adjustable gastric banding (~2009) History of cholecystectomy (~2001) History of lobectomy of lung (~2017) History of total right hip replacement (~2012) History of lumpectomy of right breast Family History Father Stomach cancer Stroke CAD (coronary artery disease) Heart disease Hyperlipidemia CVD (cardiovascular disease) Mother Hyperlipidemia HTN (hypertension) History of TIA (transient ischemic attack) Vascular dementia Mental illness in member of household Sister Rheumatoid arthritis Maternal Aunt Breast cancer Social History Housing: House Alcohol intake: current Alcohol intake frequency: holidays/special occasions only Patient Tobacco Use Status: Former Tobacco user Years Smoked: 12 +/- e-Cigarette/Vaping Use: Never Used Second Hand Smoke Exposure: No Current occupational status: other 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 needs: No Hearing needs: No Vision needs: Yes Review of Systems Const Denies chills, Denies fatigue, Denies fever(s), Denies weight gain and Denies weight loss ENT Denies dizziness Card Denies chest pain, Denies leg edema, Denies lightheadedness, Denies palpitations, Denies dyspnea on exertion, Denies orthopnea and Denies other Resp Denies cough and Denies dyspnea on exertion GI Denies hematochezia and Denies change in stool character Musc Denies abnormal gait, Denies muscle weakness, Denies numbness, Denies radiating pain into limb and Denies tingling Neuro Denies abnormal gait, Denies dizziness, Denies numbness and Denies tingling Endo Denies fatigue and Denies palpitations Physical Exam Vital Signs: Last Vital Signs Pulse 92 06/13/24 12:27 BP 110/78 06/13/24 12:27 BMI result Body Mass Index 37.8 Const General: comfortable and no acute distress Orientation/consciousness: patient oriented x3 HEENT Other: Unremarkable Head: Yes normal to inspection Neck Neck: Yes normal visual inspection Chest Chest palpation & inspection: normal inspection of the chest Resp Auscultation: clear to auscultation bilaterally Cardio Palpation: normal PMI Heart sounds: S1 normal heart sound present, S2 normal heart sound present, no gallops, no murmurs and no rubs GI Palpation (GI): Soft to palpation Back/Spine/Pelvis Other: unremarkable Skin General skin exam: no rashes or lesions noted Neuro General: patient oriented x3 Extrem General: Yes normal to inspection Psych Mental Status: mental status grossly normal Office Procedures EKG Details: EKG with underlying sinus rhythm; 92/Min; sinus arrhythmia; RSR' pattern in V1; minimal criteria for LVH; slightly prolonged corrected QT at 494 milliseconds. [id number], Complete Assessment & Plan Assessment & Plan (1) Arterial hypotension: Code(s): I95.9 - Hypotension, unspecified Category: Medical (2) Sinus tachycardia: Code(s): R00.0 - Tachycardia, unspecified Category: Medical (3) Chronic thromboembolic pulmonary hypertension: Code(s): I27.24 - Chronic thromboembolic pulmonary hypertension Category: Medical Plan Cardiac studies reviewed. In the most recent echocardiogram from [facility], LVEF 60-60%. No wall motion abnormalities. Mild flattening of interventricular septum thought to be from RV volume overload. Dilated left atrium. No significant valvular issues. Right ventricle moderate to severely dilated. Reduced function. Accurate pulmonary artery pressure could not be obtained. Cardiac catheterization from 2019 shows no significant CAD. Hence there is no evidence of coronary disease or cardiomyopathy. With regard to the chronic sinus tachycardia, unable to take beta-blockers due to low blood pressure. She is also on midodrine. Suspect is multifactorial with some combination of deconditioning, pulmonary embolism as well as autonomic insufficiency. Possible element of inappropriate sinus tachycardia. Overall, she seems fairly stable. No specific changes at this time. Discussed with significant other. Coding Level of Care Code Est Pt Level 4 (23922) Diagnoses Arterial hypotension I95.9 Sinus tachycardia R00.0 Chronic thromboembolic pulmonary hypertension I27.24 CPT Codes EKG - CPT: 32662-[id number], Complete ([id number])
[2024-06-13 12:27] VITALS: BP 110/78; PULSE 92; BMI 37.8
== END 2024-06-13 12:57 | disposition home or self-care (01) ==
PROVIDERS: PCP Internal Medicine; Visit Provider Internal Medicine
DX: I95.9 Hypotension, unspecified (principal); R00.0 Tachycardia, unspecified; I27.24 Chronic thromboembolic pulmonary hypertension
CPT/HCPCS: 93010; 99214

== ENCOUNTER → 2024-06-13 12:21 | Outpatient (BNVA) | payer BC, SELFPAY | PROVIDERS: PCP Internal Medicine; Visit Provider Internal Medicine | DX: I95.9 Hypotension, unspecified (principal); R00.0 Tachycardia, unspecified; I27.24 Chronic thromboembolic pulmonary hypertension | CPT/HCPCS: 93005 ==

== ENCOUNTER 2024-12-14 13:04 | Outpatient (AMB) | payer BC, SELFPAY ==
[2024-12-14 13:16] VITALS: BP 108/64; PULSE 94; BMI 39.5
--- NOTE | 2024-12-14 13:16 | A.OFFVIS_ITS ---
Vital Signs 12/14/24 13:16 Height 5 ft 5 in Weight 237 lb 10.533 oz BMI 39.5 BP 108/64 Blood Pressure Location Lt brachial Position Sitting Pulse 94 Pulse Source Pulse Oximeter Intake Visit Reasons: 6 mth f/up Loss Prevention Guard Required: No Accompanied by: Self / Same As Patient Allergies Sulfa (Sulfonamide Antibiotics) Allergy (Intermediate, Verified 12/14/23 23:11) RASH/SWELLING/THROAT CLOSING Medication List - Last Reconciled 12/14/24 by Matheus Cook MD acetaminophen (Tylenol Extra Strength) 1,000 mg PO Q6H PRN amoxicillin 500 mg PO TID ascorbic acid (vitamin C) 1,000 mg PO DAILY baclofen 10 mg PO TID PRN 90 days biotin mcg PO clonazepam 1 mg PO .q 6 hrs docusate sodium (Colace) 100 mg PO BID gabapentin 600 mg PO TID L. gasseri-B. bifidum-B longum 1.5 billion cell 1 cap PO DAILY lamotrigine 100 mg PO DAILY levothyroxine 200 mcg PO DAILY levothyroxine 25 mcg PO DAILY magnesium oxide 830 mg PO DAILY methylphenidate HCl 20 mg PO BID midodrine 10 mg PO TID 90 days mirabegron ER (Myrbetriq) 50 mg PO DAILY multivitamin (Daily Multi-Vitamin tablet) 1 tab PO DAILY polyethylene glycol 3350 (Miralax) 17 grams PO BID quetiapine 200 mg PO BEDTIME quetiapine 100 mg PO BID PRN quetiapine 600 mg PO BEDTIME riociguat (Adempas) 2 mg PO TID sennosides (senna) 8.6 mg PO BID warfarin 5 mg PO Q OTHER DAY ziprasidone HCl 40 mg PO zolpidem 10 mg PO BEDTIME PRN HPI Comments Details: Delores returns for follow-up. Complex medical history. She used to be a patient at [facility] in past. Per history, diagnosed with 'drop attacks' more than 15 years ago. At that time, she was started on metoprolol and Florinef. Not on these anymore. No further episodes since that time. History of lung cancer and has undergone left lower lobectomy few years ago. Subsequently, pulmonary embolism and then diagnosed with chronic thromboembolic pulmonary hypertension. She goes to [facility] in that regard. She is maintained on anti-coagulation. From the cardiac standpoint, no known coronary disease or cardiomyopathy. In 2022, underwent removal of right total hip arthroplasty and placement of antibiotic cement spacer surgery. According to patient, surgery itself was uneventful but she was hospitalized again with low blood pressure, dizziness. She was requiring Levophed in the ER. Then metoprolol was stopped. She believes that the low blood pressure could have been due to not taking midodrine but not clear. Lasix dose was then reduced. Also on midodrine. After that, she was admitted with high pulse rate and was diagnosed with pericardial hematoma worrisome for cardiac compression, for which she underwent sternotomy and mediastinal washout. In the last few months, she states she is actually doing quite good. No new concerns. [facility] Medical History (Updated 12/14/23 @ 23:26 by Alisha Worley MD) Skin lesion of chest wall Sinus tachycardia Pleural effusion, right Pericardial hematoma Bilateral knee pain Word finding difficulty ADD (attention deficit disorder) Bipolar disorder Dependence on supplemental oxygen Nonscarring hair loss Morbid obesity History of pneumothorax History of pulmonary embolism Chronic thromboembolic pulmonary hypertension History of right breast cancer (~1998) Gallstones Migraine headache Anemia Fatigue Hypothyroidism Lung cancer (~2017) Obstructive sleep apnea (adult) (pediatric) Surgical History History of open heart surgery History of right breast biopsy (~1998) History of colonoscopy History of laparoscopic adjustable gastric banding (~2009) History of cholecystectomy (~2001) History of lobectomy of lung (~2017) History of total right hip replacement (~2012) History of lumpectomy of right breast Family History Father Stomach cancer Stroke CAD (coronary artery disease) Heart disease Hyperlipidemia CVD (cardiovascular disease) Mother Hyperlipidemia HTN (hypertension) History of TIA (transient ischemic attack) Vascular dementia Mental illness in member of household Sister Rheumatoid arthritis Maternal Aunt Breast cancer Social History Housing: House Alcohol intake: current Alcohol intake frequency: holidays/special occasions only Patient Tobacco Use Status: Former Tobacco user Years Smoked: 12 +/- e-Cigarette/Vaping Use: Never Used Second Hand Smoke Exposure: No Current occupational status: other 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 needs: No Hearing needs: No Vision needs: Yes Review of Systems Const Denies chills, Denies fatigue, Denies fever(s), Denies weight gain and Denies weight loss ENT Denies dizziness Card Denies chest pain, Denies leg edema, Denies lightheadedness, Denies palpitations, Denies dyspnea on exertion, Denies orthopnea and Denies other Resp Denies cough and Denies dyspnea on exertion GI Denies hematochezia and Denies change in stool character Musc Denies abnormal gait, Denies muscle weakness, Denies numbness, Denies radiating pain into limb and Denies tingling Neuro Denies abnormal gait, Denies dizziness, Denies numbness and Denies tingling Endo Denies fatigue and Denies palpitations Physical Exam Vital Signs: Last Vital Signs Pulse 94 12/14/24 13:16 BP 108/64 12/14/24 13:16 BMI result Body Mass Index 39.5 Const General: comfortable and no acute distress Orientation/consciousness: patient oriented x3 HEENT Other: Unremarkable Head: Yes normal to inspection Neck Neck: Yes normal visual inspection Chest Chest palpation & inspection: normal inspection of the chest Resp Auscultation: clear to auscultation bilaterally Cardio Palpation: normal PMI Heart sounds: S1 normal heart sound present, S2 normal heart sound present, no gallops, no murmurs and no rubs GI Palpation (GI): Soft to palpation Back/Spine/Pelvis Other: unremarkable Skin General skin exam: no rashes or lesions noted Neuro General: patient oriented x3 Extrem General: Yes normal to inspection Psych Mental Status: mental status grossly normal Assessment & Plan Assessment & Plan (1) Arterial hypotension: Code(s): I95.9 - Hypotension, unspecified Category: Medical (2) Sinus tachycardia: Code(s): R00.0 - Tachycardia, unspecified Category: Medical (3) Chronic thromboembolic pulmonary hypertension: Code(s): I27.24 - Chronic thromboembolic pulmonary hypertension Category: Medical Plan Cardiac studies reviewed. In the most recent echocardiogram from [facility], LVEF 60-65%. No wall motion abnormalities. Mild flattening of interventricular septum thought to be from RV volume overload. Dilated left atrium. No significant valvular issues. Right ventricle moderate to severely dilated. Reduced function. Accurate pulmonary artery pressure could not be obtained. Cardiac catheterization from 2019 shows no significant CAD. Hence there is no evidence of coronary disease or cardiomyopathy. With regard to the chronic sinus tachycardia, unable to take beta-blockers due to low blood pressure. She is also on midodrine. Suspect this is multifactorial with some combination of deconditioning, pulmonary embolism as well as autonomic insufficiency. Possible element of inappropriate sinus tachycardia. However, this has been stable recently. No specific changes made during this visit. Mainly reassurance. She will contact us with ongoing concerns. Follow-up in 6 months. Discussed with significant other. Medications: Changed From sennosides (senna) 8.6 mg PO DAILY 3 months 90 tabs 1RF K59.09 - Other constipation To sennosides (senna) 8.6 mg PO BID K59.09 - Other constipation Coding Level of Care Code Est Pt Level 4 (85479) Complex EM visit Add On G2211 Diagnoses Arterial hypotension I95.9 Sinus tachycardia R00.0 Chronic thromboembolic pulmonary hypertension I27.24
--- OUTSIDE RECORDS SUMMARY | 2024-12-14 13:57 | XMS_ITS | Continuity of Care Document ---
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 ?Use daily. On in a.m. off at bedtime ?? Unchanged Enoxaparin (Lovenox 100 mg/ mL injectable solution) 100 Milligram Subcutaneous Injection Every 12 hours *Note: Treatment = 1mg/ kg/ dose* ?? Unchanged Estradiol Topical (estradiol 0.1 mg/ g vaginal cream) See instructions 1 Gm Vaginally Daily at bedtime x 2 weeks, then 3 times a week for maintenance. ?? Unchanged Gabapentin (gabapentin 600 mg oral tablet) 1 tab(s) Oral 3 times a day Unchanged Lamotrigine (lamotrigine 100 mg oral tablet) 1 tab(s) Oral Daily Unchanged Levothyroxine (levothyroxine 125 mcg (0.125 mg) oral tablet) See instructions Hypothyroidism 2 tablet By Mouth Daily extra tablet on Sundays supply ?? Pickup at [facility]/pharmacy #[id number] Unchanged Magnesium Oxide (magnesium oxide 400 mg oral tablet) 1 tab(s) Oral Daily Muscle spasm of back Duration: 90 Days Unchanged Methylphenidate (methylphenidate 20 mg oral tablet) 2 tab(s) Oral Daily in the morning Unchanged Methylphenidate (methylphenidate 20 mg oral tablet) 1 tab(s) Oral Daily Afternoon ?? Unchanged Midodrine (midodrine 5 mg oral tablet) 10 Milligram Oral 3 times a day Unchanged mirabegron (mirabegron 50 mg oral tablet, extended release) 1 tab(s) Oral Daily DO NOT CRUSH OR CHEW. ?? Unchanged Multivitamin (multivitamin Multiple Vitamins oral capsule) 1 capsule Oral Daily Unchanged Nystatin (nystatin 830404 u oral capsule) 1 capsule Oral 3 times a day Unchanged Quetiapine (QUEtiapine 200 mg oral tablet) 4 tab(s) Oral Daily at Bedtime Unchanged riociguat (Adempas 2 mg oral tablet) 1 tab(s) Oral 3 times a day Unchanged Senna Oral Unchanged Triamcinolone Topical (triamcinolone 0.025% topical cream) Topically 3 times a day Unchanged Warfarin (warfarin 5 mg oral tablet) See instructions Take 1 - 2 tablets By Mouth Once ??Daily as directed by [facility] ?? Unchanged Warfarin (warfarin 5 mg oral tablet) 1 tab(s) Oral Daily as directed by the [facility] ?? Unchanged Ziprasidone (ziprasidone 40 mg oral capsule) 40 Milligram Oral Daily at Bedtime Unchanged Zolpidem (Ambien 10 mg oral tablet) 1 tab(s) Oral Daily at Bedtime as needed for as needed for insomnia Pharmacy Information [facility]/pharmacy #[id number]: [address] [place], [place] [id number] [phone] Test Performed Below is a partial list of the tests performed during your Visit. You may have had other tests and procedures not included in this list. Please discuss all test results with your provider. Free T4?-- Results Pending -- TSH?-- Results Pending -- Medications and Immunizations Administered Medications Given During Visit No medications given during this visit.?? Allergies (NKA means No Known Allergies) Adhesive Bandage??(blisters, rash) Bactrim??(anaphylaxis) Other Environmental Allergy sulfa drugs??(RASH, THROAT SWELLING) Common Emergency Awareness Tips IS IT A STROKE? Act FAST and Check for these signs: FACE Does the face look uneven? ARM Does one arm drift down? SPEECH Does their speech sound strange? TIME Call at any sign of stroke ?? Heart Attack Signs Chest discomfort: Most heart attacks involve discomfort in the center of the chest and lasts more than a few minutes, or goes away and comes back. It can feel like uncomfortable pressure, squeezing, fullness or pain. Discomfort in upper body: Symptoms can include pain or discomfort in one or both arms, back, neck, jaw or stomach. Shortness of breath: With or without discomfort. Other signs: Breaking out in a cold sweat, nausea, or lightheaded. Remember, MINUTES DO MATTER. If you experience any of these heart attack warning signs, call to get immediate medical attention! ?? Smoking can increase your chances of developing chronic health problems and can cause harmful effects to other family members in your house. If you smoke, you are strongly encouraged to quit. Please call [facility] [place] at [phone] or [phone] ([phone]) or log in to [email or web address] for referrals to smoking cessation programs. ?? The National Suicide Prevention Hotline is available 17/05 if you or someone you know needs to find a reason to keep living. By calling 7-740-877-[employer] (9842) you'll be connected to a skilled, trained counselor at a crisis center in your area. [facility] Portal You can view and manage your care through the patient portal or by using a health care sangeeta of your choosing. [employer] is a website that allows you to securely view your medical information including your hospital discharge summary, office visit summaries, medications and follow-up visits. You can also request appointments, renew medications, and request access to your medical information using a health care sangeeta of your choosing, or just ask a question. You can enroll at [email or web address] or register during your next office visit. [facility], in keeping with [facility] guidance, no longer requires face masks for staff, patientsor visitors in most situations. Similiar to time spent indoors at other locations, there is the chance that you were exposed to repiratory viruses during your time with us (such as flu or COVID-19). If you develop symptoms concerning for a viral respiratory infection, please seek testing (and treatment if indicated) from your medical provider or home test kit. ?? Disclaimer: The information provided is of a general nature and is intended to be used in conjunction with the recommendations and advice of your health care practitioner. Every effort has been made to ensure that the information provided is accurate and complete at the time it is provided to you however, as your needs change, or, as new information becomes available, different or additional instructions may be required. ?? If you have questions, please consult with your primary care provider or pharmacist, as appropriate. This information is not intended to serve as substitution for assessment and evaluation by a qualified health care provider. If you do not have a primary care provider, you may find a [facility] provider by calling [facility] Link at [phone]. Patient Care team information Care Team Personnel Name: Alda Rivera RN Position: [facility] RN Member Role: Primary Care Nurse Name: Princess Palacios RN Position: [facility] SN RN Member Role: Primary Care Nurse Name: Alyssa Arita RN Position: [facility] AMB Nurse Member Role: Primary Care Nurse Name: Mitzy Orona RN Position: [facility] RN Member Role: Primary Care Nurse Name: Hamilton Lopez RN Position: [facility] RN Member Role: Primary Care Nurse Name: Jessica Alexis RN Position: [facility] RN Member Role: Primary Care Nurse Name: Mohini Shook RN Position: [facility] RN Member Role: Primary Care Nurse Name: Vinny Walsh RN Position: [facility] RN Member Role: Primary Care Nurse Name: Cheryl Amin RN Position: [facility] RN Member Role: Primary Care Nurse Name: Pretty Davalos RN Position: [facility] RN Member Role: Primary Care Nurse Name: Lesly Villagran RN Position: [facility] RN Member Role: Primary Care Nurse Name: Tanna Baig RN Position: [facility] SN RN Member Role: Primary Care Nurse Name: Candi Cho RN Position: [facility] RN Member Role: Primary Care Nurse Name: Oliva Callejas MD Position: [facility] SHIRT BANDER MD Member Role: [employer] SHIRT BANDER Physician Address: [address] [place], [place] [address]s [facility] [employer] [place], [place] [address] Telecom: Name: Edilma Heath RN Position: [facility] RN Member Role: Primary Care Nurse Name: Nellie Henriquez RN Position: [facility] RN Member Role: Primary Care Nurse Name: Stephania Bowens RN Position: [facility] RN Member Role: Primary Care Nurse Name: Uvaldo Shelley RN Position: [facility] RN Member Role: Primary Care Nurse Name: Juvencio Mcneill RN Position: [facility] RN Member Role: Primary Care Nurse Name: Hallie Sheehan RN Position: [facility] RN Member Role: Primary Care Nurse Name: Oriana Thomas NP Position: [facility] PCO Associate Professional Member Role: PCP Address: [address] [place], [place] [address] Telecom: Name: Danika Aldridge RN Position: [facility] Rad RN Member Role: Primary Care Nurse Name: Adore Barclay RN Position: [facility] RN Member Role: Primary Care Nurse Name: Salvatore Strong RN Position: [facility] RN Member Role: Primary Care Nurse Name: Aishwarya Baltazar RN Position: [facility] RN Member Role: Primary Care Nurse Name: Kate Coyle RN Position: [facility] RN Member Role: Primary Care Nurse Name: Kandy Coates RN Position: [facility] RN Member Role: Primary Care Nurse Care Team Related Persons Name: EL LEWIS Insurance Providers Guarantor name: OPAL LEWIS Health Plan Information #: 1 Payer: HMO [employer] Member Number: [id number] Policy Number: NA Group Number: [id number] Health Plan Information #: 2 Payer: HMO [employer] Member Number: [id number] Policy Number: NA Group Number: NA
--- OUTSIDE RECORDS SUMMARY | 2024-12-14 13:57 | XMS_ITS | Clinical Summary ---
Author Organization [facility] Address [address] [place] [phone] Phone Care Team Providers Care Continuous Absorption Process Operator Name Role Phone Alisha Worley MD Primary Care Provider Allergies Active Allergy Reactions Criticality Noted Date Comments Soy 11/02/2023 Other Reaction(s): Hives/Urticaria Sulfa (Sulfonamide Antibiotics) 12/10/2011 Other Reaction(s): Numbness, tingling or swelling of the lips, tongue or mouth, Rash/Dermatitis Medications mirabegron (MYRBETRIQ) 50 mg tablet extended release 24 hr 24 hr tablet Take by mouth. Ac tive midodrine (PROAMATINE) 10 mg tablet Sig - Route: Take 1 Tablet by mouth 3 times daily. - Oral Active methylphenidate (RITALIN) 20 mg tablet Take 1 Tablet by mouth 2 times daily Active L.acid/L.casei/ B.bif/B.sima/FOS (PROBIOTIC BLEND ORAL) Sig - Route: Take by mouth. - Oral Active QUEtiapine (SEROquel) 200 mg tablet Sig - Route: Take 1 Tablet by mouth 2 times daily. - Oral Active QUEtiapine (SEROquel) 300 mg tablet Sig - Route: Take 1 Tablet by mouth 2 times daily. - Oral Active ascorbic acid (VITAMIN C) 1,000 mg tablet Sig - Route: Take 1 Tablet by mouth daily. - Oral Active magnesium oxide (MAG-OX) 400 mg magnesium tablet Sig - Route: Take by mouth. - Oral Active senna (SENOKOT) 8.6 mg tablet Sig - Route: Take by mouth. - Oral Active biotin 5 mg tablet Sig - Route: Take by mouth. - Oral Active riociguat (ADEMPAS) 2 mg tablet Sig - Route: Take by mouth. - Oral Active rivaroxaban (XARELTO) 20 mg tablet Take with food. Acti ve ferrous sulfate 325 mg (65 mg iron) EC tablet take 1 tablet by mouth every day 4 Active docusate sodium (COLACE) 100 mg capsule Sig - Route: Take 1 Capsule by mouth 2 times daily. - Oral Active sodium fluoride-pot nitrate 1.1-5 % paste dental paste Place onto teeth. Active polyethylene glycol (MIRALAX) 17 gram packet Sig - Route: Take 1 Packet by mouth daily. - Oral Active mupirocin (BACTROBAN) 2 % ointment Apply topically 3 times daily. Active clobetasoL-niac inamide (Chlooxia) 0.05-4 % ointment Apply topically. Active carbamide peroxide (Ear Drops, carbamide peroxide,) 6.5 % otic solution 5 Drops 2 times daily. Tilt head so ear to be treated points towards the ceiling. Hold medication in ear using part of a cotton ball. Active amoxicillin (AMOXIL) 500 mg capsule Take 1 Capsule by mouth 3 times daily. Active ziprasidone (GEODON) 40 mg capsule Take 40 mg by mouth daily (with breakfast). Active lamoTRIgine (LaMICtal) 200 mg tablet Take 400 mg by mouth daily. Active topiramate (TOPAMAX) 100 mg tablet Sig - Route: Take 125 mg by mouth daily. - Oral Active clonazePAM (KlonoPIN) 1 mg tablet Take 1 mg by mouth 2 times daily. Active levothyroxine (SYNTHROID, LEVOTHROID) 200 mcg tablet Take 250 mcg by mouth daily. Active multivitamin (MULTIPLE VITAMINS ORAL) Take by mouth. Active gabapentin (NEURONTIN) 300 mg capsule Take 300 mg by mouth 3 times daily. Active zolpidem (AMBIEN) 10 mg tablet Take by mouth at bedtime as needed. Active baclofen (LIORESAL) 10 mg tablet Take 1 Tablet by mouth 3 times daily. Active Active Problems Problem Noted Date Diagnosed Date Mediastinal lymphadenopathy 11/01/2023 Arthritis 12/10/2011 Back spasm 12/10/2011 Bipolar 1 disorder 12/10/2011 Hypothyroid 12/10/2011 Neurocardiogenic syncope 12/10/2011 Overview (12/12/2024): Positive tilt table Obesity 12/10/2011 Rosacea 12/10/2011 Surgical History Surgery Date Site/Laterality Comments CHOLECYSTECTOMY 2021 PROCEDURE: DC CHOLECYSTECTOMY OTHER SURGICAL HISTORY PROCEDURE: COLONOSCOPY, SURGICAL OTHER SURGICAL HISTORY 2009 PROCEDURE: DC EGD BAND LIGATION ESOPHGEAL/GASTRIC VARICES OTHER SURGICAL HISTORY 2018 Left PROCEDURE: DC THORACOSCOPY W/LOBECTOMY SINGLE LOBE; COMMENT: LLL Lobectomy BREAST LUMPECTOMY Right PROCEDURE: HISTORICAL BREAST LUMPECTOMY BREAST BIOPSY 1998 Right PROCEDURE: BX BREAST; PERC NEEDLE CORE W/IMAG GUID HIP ARTHROPLASTY 2012 PROCEDURE: HISTORICAL HIP REPLACEMENT Medical History Medical History Date Comments Syncope DX:Syncope Hypothyroid 12/10/2011 DX:Hypothyroid Bipolar 1 disorder ([facility]) 12/10/2011 DX: Bipolar 1 disorder ([facility]) Rosacea 12/10/2011 DX:Rosacea Back spasm 12/10/2011 DX:Back spasm Arthritis 12/10/2011 DX:Arthritis Attention deficit disorder DX:At tention deficit disorder Anemia DX:Anemia Chronic thromboembolic pulmo nary hypertension ([facility]) DX:Chronic thromboembolic pu lmonary hypertension ([facility]) Dependence on supplemental oxygen DX:Dependence on supplemental oxygen Other somatoform disorders DX:Ot her somatoform disorders Gallstones DX:Gallstones History of pneumothorax DX:Histo ry of pneumothorax History of pulmonary embolism DX :History of pulmonary embolism History of right breast cancer D X:History of right breast cancer Lung cancer ([facility]) 2017 DX:Lung ca ncer ([facility]); COMMENT: LLL Lung Cancer - Stage 1 Adenocarcinoma) Migraine headache DX:Migraine he adache Morbid obesity ([facility]) DX:Morb id obesity ([facility]) Nonscarring hair loss DX:Nonscar ring hair loss Obstructive sleep apnea DX:Obstr uctive sleep apnea Right hip pain DX:Right hip armand n Heart disease DX:Heart disease Essential (primary) hypertension DX:Essential (primary) hypertension Fibromyalgia DX:Fibromyalgia Pericardial hematoma DX:Pericard ial hematoma; COMMENT: history of Antiphospholipid antibody sy ndrome ([facility]) DX:Antiphospholipid antibody syndrome ([facility]) Family History Medical History Relation Name Comments Breast cancer Aunt 1 Maternal Breast cancer Aunt 2 Throat cancer Aunt 3 Lung cancer Aunt 4 Coronary artery disease Father Hyperlipidemia Father Hypertension Father Other: CVD Father Other: Heart Disease Father Other: Skin Cancer Father Stomach cancer Father Stroke Father Other cancer Maternal Grandfather Anemia Mother Hyperlipidemia Mother Hypertension Mother Other: Vascular Dementia Mother Stroke Mother Other cancer Paternal Grandfather Rheum arthritis Sister Bladder Cancer Uncle Relation Name Status Comments Aunt 1 Maternal Alive Aunt 2 Aunt 3 Aunt 4 Father Maternal Grandfather Mother Paternal Grandfather Sister Uncle Social History Tobacco Use Types Packs/Day Years Used Date Smoking Tobacco: Former Cigarettes 1 15 0 10/25/1978 - 10/25/1993 Smokeless Tobacco: Never Alcohol Use Standard Drinks/Week Comments Yes 0 (1 standard drink = 0.6 oz pur e alcohol) Comments Unknown Sex and Gender Information Value Date Recorded Sex Assigned at Female 11/24/2024 3:15 PM EST Legal Sex Female 10:24 AM EST Gender Identity Female 11/24/2024 3:15 PM EST Sexual Orientation Straight 11/24/2024 3: 15 PM EST Obstetrics History Last Filed Vital Signs Vital Sign Reading Time Taken Comments Blood Pressure 150/67 02/17/2024 9:26 AM EDT Sitting L Arm Pulse 100 02/17/2024 9:26 AM EDT Temperature - - Respiratory Rate - - Oxygen Saturation - - Inhaled Oxygen Concentration - - Weight 105 kg (230 lb 11.2 oz) 02/17/2024 9:26 AM EDT Height 165.1 cm (5' 5 ) 02/17/2024 9:26 AM EDT Body Mass Index 38.39 02/17/2024 9:26 AM EDT Plan of Treatment Upcoming Encounters Date Type Department Care Team (Late st Contact Info) Description 01/23/2025 11:00 AM EDT Appointment [facility] CT Scan [address] [place] [phone] 02/06/2025 1:30 PM EDT Office Visit Thoracic Surgery - [place] [address] [phone] Ann Avitia NP [address] [address] Health Maintenance Due Date Last Done Comments Breast Cancer Screening 1962 COVID-19 Vaccine (#1) 1967 DTaP,Tdap,and Td Vaccines (1 - Tdap) 1981 Pneumococcal Vaccine: 50+ Ye ars (1 of 2 - PCV) 1981 Pneumococcal Vaccine: Pediat rics (0 to 5 Years) and At-Risk Patients (6 to 64 Years) (1 of 2 - PCV) 1981 Zoster Vaccines (1 of 2) 1981 Cervical Cancer Screening: P ap Smear 1983 RSV Immunization Patients 60 + Years Old (1 - Risk 60-74 years 1-dose series) 2022 Cholesterol Screening (Lipid Panel) 09/22/2022 Colorectal Cancer Screening: Colonoscopy 09/22/2022 Depression Screening 09/22/2022 HIV Screening 09/22/2022 Hepatitis C Screening 09/22/2022 Social Influencers of Health Screening 09/22/2022 Influenza Vaccine (#1) 2024 HIB Vaccines Aged Out No longer eligi ble based on patient's age to complete this topic HPV Vaccines Aged Out No longer eligi ble based on patient's age to complete this topic Hepatitis A Vaccines Aged Out No long er eligible based on patient's age to complete this topic Hepatitis B Vaccines Aged Out No long er eligible based on patient's age to complete this topic IPV Vaccines Aged Out No longer eligi ble based on patient's age to complete this topic MMR Vaccines Aged Out No longer eligi ble based on patient's age to complete this topic Meningococcal ACWY Vaccine Aged Out N o longer eligible based on patient's age to complete this topic Meningococcal B Vacine Aged Out No lo nger eligible based on patient's age to complete this topic RSV Immunization Patients Un liudmila 20 months Aged Out No longer eligible b ased on patient's age to complete this topic Varicella Vaccines Aged Out No longer eligible based on patient's age to complete this topic Insurance [facility] Care Teams Continuous Absorption Process Operator Relationship Specialty Start Date End Date Alisha Worley MD [address] [place] [address] PCP - General 12/08/11
--- OUTSIDE RECORDS SUMMARY | 2024-12-14 13:57 | XMS_ITS | Continuity of Care Document ---
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(Discharge Diagnosis) - 11/28/24 Bipolar disorder(Discharge Diagnosis) - 11/28/24 Chronic hypoxemic respiratory failure(Discharge Diagnosis) - 11/28/24 Chronic pulmonary embolism(Discharge Diagnosis) - 11/28/24 UTI symptoms(Discharge Diagnosis) - 11/28/24 Attending Physician: Oriana Thomas NP Encounter Type: Office Visit Allergies, Adverse Reactions, Alerts Substance Criticality Severity Reaction Reaction Severity Status sulfa drugs RASH, THROAT SWELLING Active Bactrim anaphylaxis Active Adhesive Bandage blisters, rash Active Other Environmental Allergy 1 Active 1TEGADERM Immunizations Given and Recorded Vaccine Date Status Refusal Reason zoster vaccine, inactivated 11/21/24 Recorded zoster vaccine, inactivated 06/03/20 Recorded influenza virus vaccine, inactivated 11/21/24 Cb rded influenza virus vaccine, inactivated 06/03/24 Cb rded [...] influenza virus vaccine, inactivated 09/05/15 Cb rded SARS-CoV-2(COVID-19)mRNA-LNP vac([id number]) 11/21/24 Recorded SARS-CoV-2(COVID-19)mRNA-LNP vac([id number]) 12/01/23 Recorded Measles/Mumps/Rubella Virus Vaccine 06/03/24 Recor ded tetanus-diphtheria toxoids (Td) 01/10/24 Given Hepatitis A Adult Vaccine 01/10/24 Given RSV vaccine preF3, recombinant 12/16/23 Recorded hepatitis B adult vaccine 12/16/23 Recorded [id number] bivalent booster vax 08/06/22 Recorded SARS-CoV-2 (COVID-19) mRNA-1273 vaccine 09/12/21 R ecorded SARS-CoV-2 (COVID-19) mRNA-1273 vaccine 12/27/20 R ecorded Zoster Vaccine Live 1 06/03/20 Recorded pneumococcal 13-valent vaccine 2 10/13/19 Recorded pneumococcal 23-valent vaccine 10/13/19 Recorded 1Result Comment: Unit: Unknown Route: Intramuscular Security Developer: SPARQ 2Result Comment: Unit: Unknown Route: Intramuscular Security Developer: [employer] Medications acetaminophen 325 mg oral tablet [...] 5 Refills, Maintenance, 09/29/24 12:45:00 PM EST, [facility] STORE [id number], 165, cm, 09/11/24 13:48:00 EST, Height, 98.6, kg, 04/19/24 10:29:00 EDT, Dry Weight Start Date: 09/29/24 Status: Ordered Quantity: 90.0 Unit: capsule Repeat number: 1 baclofen 10 mg oral tablet 10 mg, 1, tablet, By Mouth, 3 times a day, # 90 tablet, Refills 0, Tot. Refills 0, Maintenance, 01/10/24 1:26:00 PM EDT, Route to Pharmacy Electronically, [facility]/pharmacy #[id number], Partial fill upon patientrequest if the prescription [...] Refills, Maintenance, 01/10/24 1:28:00 PM EDT, Capsule, [facility]/pharmacy #[id number], Partial fill upon patient [...] 1:31:00 PM EDT, Route to Pharmacy Electronically, [facility]/pharmacy #[id number], Partial fill upon patient [...] Date: 08/07/24 Status: Ordered Repeat number: 1 gabapentin 600 mg oral tablet 1 tablet = 600 mg, By Mouth, 3 times a day, # 270 each, 1 Refills, Maintenance, 06/15/24 8:07:00 AM EDT, Tablet, [facility]/pharmacy #[id number], Partial fill upon patient [...] 180.0 Unit: tablet Repeat number: 1 levothyroxine 0.025 mg oral tablet 1 tablet = 25 mcg, By Mouth, Daily, take totally 225mcg daily (200mcg + 25mcg), # 30 tablet, 11 Refills, Maintenance, 11/23/24 11:49:00 AM EST, [facility]/pharmacy #[id number], stop the previous 112mcg script, 165, cm, 11/16/24 11:42:00 EST, Height, 108.2, kg, 11/09/24 11:24:00 EST, Dry Weight Start Date: 11/23/24 Status: Ordered Quantity: 30.0 Unit: tablet Repeat number: 12 Indication: Other specified hypothyroidism levothyroxine 0.2 mg oral tablet 1 tablet = 200 mcg, By Mouth, Daily, take totally 225mcg daily (200mcg + 25mcg), # 30 tablet, 11 Refills, Maintenance, 11/23/24 11:48:00 AM EST, [facility]/pharmacy #[id number], stop the previous 112mcg script, 165, cm, 11/16/24 11:42:00 EST, Height, 108.2, kg, 11/09/24 11:24:00 EST, Dry Weight Start Date: 11/23/24 Status: Ordered Quantity: 30.0 Unit: tablet Repeat number: 12 Indication: Other specified hypothyroidism magnesium oxide 400 mg oral tablet 1 tablet = 400 mg, By Mouth, Daily, for 90 days, # 90 tablet, 3 Refills, Acute 01/04/25 1:33:00 PM EDT, 01/10/24 1:33:00 PM EDT, [facility]/pharmacy #[id number], Partial fill upon patient [...] 12:10:00 PM EDT, Route to Pharmacy Electronically, [facility], Partial fill upon patient [...] 1 Refills, Maintenance, 10/04/24 9:19:00 AM EST, [facility] ST[facility] [id number], 165, cm, 09/11/24 13:48:00 EST, Height, 98.6, [...] Quantity: 90.0 Unit: capsule Repeat number: 1 nitrofurantoin macrocrystals-monohydrate 100 mg oral capsule 1 capsule = 100 mg, By Mouth, 2 times a day, for 3 days, # 6 capsule, 0 Refills, Acute 12/07/24 5:21:00 PM EST, 12/04/24 5:21:00 PM EST, Capsule, [facility]acy [id number], Partial fill upon patient request if the prescription is for a schedule II opioid drug., 165, cm, 11/28/24 11:14:00 EST, Height, 108.2,kg, 11/09/24 11:24:00 EST, Dry Weight Start Date: 12/04/24 Stop Date: 12/07/24 Status: Ordered Quantity: 6.0 Unit: capsule Repeat number: 1 Indication: Unspecified symptoms and signs involving the genitourinary system nystatin 577220 u oral capsule 1 capsule = 500,000 [...] 1 Refills, Maintenance, 08/17/24 2:49:00 PM EDT, [facility] ST[id number], 165, cm, 08/07/24 14:31:00 EDT, Height, 98.6, kg, 04/19/24 10:29:00 EDT, Dry Weight Start Date: 08/17/24 Status: Ordered Quantity: 60.0 Unit: tablet Repeat number: 1 warfarin 5 mg oral tablet See Instructions, Take 1 - 2 tablets By Mouth Once Daily as directed by [facility], # 60 tablet, 11 Refills, Maintenance, 05/04/24 11:39:00 AM EDT, [id number], Partial fill upon patient request [...] Refills, Maintenance, 03/03/24 4:43:00 PM EDT, Tablet, [id number], Partial fill upon patient request [...] 0 Refills, Maintenance, 07/12/23 12:08:00 PM EDT,Capsule, [facility], Partial fill upon patient request if [...] Irritable bowel syndrome with constipation Confirmed Active 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 Diagnosis Diagnosis Type Effective Dates Health Status Clinical Service Informant History of anemia Discharge Diagnosis 11/28/24 Health care maintenance Discharge Diagnosis 11/28/24 [facility] current use of anticoagulant Discharge Diagnosis 11/28/24 Bipolar disorder Discharge Diagnosis 11/28/24 Chronic hypoxemic respiratory failure Discharge Diagnosis 11/28/24 Chronic pulmonary embolism Discharge Diagnosis 11/28/24 UTI symptoms Discharge Diagnosis 11/28/24 Vital Signs Most recent to oldest [Reference Range]: 1 Height 165 cm (11/28/24 11:14 AM) Oxygen Saturation [94-100 %] 96 % (11/28/24 11:14 AM) Pulse Rate [55-90 bpm] 124 bpm *H* (11/28/24 11:14 AM) Blood Pressure [90-138/55-84 mm Hg] 129/ 59mm Hg (11/28/24 11:14 AM) Mode of Delivery (Oxygen) Room air (11/28/24 11:14 AM) Blood pressure sites Arm, left (11/28/24 11:14 AM) Weight Obtained Via Standing scale (11/28/24 11:14 AM) Social History Social History Type Response Smoking Status Former smoker, quit more than 30 days ago; Other: quit 23 years ago; entered on: 06/01/23 Sex Sex Representation Female (finding) Note * Hilton Mcmahon: PERFORM Event Display: Patient Education/Instruction Authored Date: [id number] Ambulatory Adult Visit Summary [address] [place] [address] Name: OPAL LEWIS : 1960?? Visit: 11/28/2024 11:00?? Ambulatory Visit Instructions ?? Your Care Team Primary Care Provider William DIAZ, Oriana Briseno? 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 Diastolic Blood Pressure: 59 mm Hg ?? Oxygen Saturation: 96 % ?? What to do next Scheduled Follow-Up Appointments Wednesday 10:30 AM EDT ?? Where: [facility] Radiology [facility] [address], [address] [place] [address]- Status: Pending Wednesday 11:00 AM EDT ?? With: Maricarmen DIAZ, Veena Tejada Where: [facility] [address] [place] [address]- Status: Pending Future Orders Anticardiolipin Ab IgG/IgM - Once, *Est. 12/24/23 every 3 months (+/- 28 days) for 6 months, Singleor Recurring Future Order?? Beta 2 Glycoprotein 1 Ab - Once, *Est. 12/24/23 every 3 months (+/- 28 days) for 6 months, Single or Recurring Future Order?? INR - Routine, Once, 09/14/24 3:00:00 EST every 1 week(s) for 6 months, Future Order, [facility], Blood?? TSH - Routine, Once, 11/23/24 7:34:00 EST, Future Order, [facility], Blood?? Free T4 - Routine, Once, 11/23/24 7:34:00 EST, Future Order, [facility], Blood?? Iron + Iron Binding Capacity - Routine, Once, 11/28/24 11:35:00 EST, Order for Today, [facility], Blood?? Ferritin - Routine, Once, 11/28/24 11:35:00 EST, Order for Today, [facility], Blood?? CBC w/ Differential - Routine, Once, 11/28/24 11:35:00 EST, Order for Today, [facility], Blood?? Medications The list below reflects the information in our records and provided by you today along with any changes made during this visit. Please continue your medications until treatment is completed or stopped by your provider. If this is different from the information you have or there are other questions,please contact the prescribing provider. What How Much When Why Instructions New Nitrofurantoin (nitrofurantoin macrocrystals-monohydrate 100 mg oral capsule) 1 capsule Oral Twice a day UTI symptoms Duration: 5 Days Pickup at [facility]/pharmacy #[id number] Unchanged Acetaminophen (acetaminophen 325 mg oral tablet) [...] in a.m. off at bedtime ?? 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 Unchanged Magnesium Oxide (magnesium oxide 400 mg [...] 1 capsule Oral Daily Unchanged Nystatin (nystatin 721837 u oral capsule) 1 capsule Oral 3 [...] for as needed for insomnia Pharmacy Information [facility]/pharmacy #[id number]: [address], [place] [phone] ?? What How Much When Comments Stop Taking Enoxaparin (Lovenox 100 mg/ mL injectable solution) 100 Milligram Subcutaneous Injection Every 12 hours *Note: Treatment = 1mg/ kg/ dose* ?? Stop Taking Estradiol Topical (estradiol 0.1 mg/ g vaginal cream) See instructions 1 Gm Vaginally Daily at bedtime x 2 weeks, then 3 times a week for maintenance. ?? Test Performed Below is a partial list of the tests performed during your Visit. You may have had other tests and procedures not included in this list. Please discuss all test results with your provider. CBC w/ Differential?-- Results Pending -- Ferritin?-- Results Pending -- Iron + Iron Binding Capacity?-- Results Pending -- POC UA ([facility]) Lab Test Results Below is a partial list of the most recent Laboratory test results done during your Visit. You may have had other tests and procedures not included in this list. Please discuss all test results with your provider. Test Name Test Result Date/Time POC UA Glucose NEGATIVE 11/28/2024 12:00 EST POC UA Bilirubin NEGATIVE 11/28/2024 12:00 EST POC UA Ketones NEGATIVE 11/28/2024 12:00 EST POC UA Specific Emery 1.025 11/28/2024 12:00 EST POC UA Blood NEGATIVE 11/28/2024 12:00 EST POC UA PH 7.0 1 11/28/2024 12:00 EST POC UA Protein NEGATIVE 11/28/2024 12:00 EST POC UA Urobilinogen 0.2 mg/dL 11/28/2024 12:00 EST POC UA Nitrite POSITIVE 11/28/2024 12:00 EST POC UA Leukocytes 1+ 11/28/2024 12:00 EST POC UA Color YELLOW 11/28/2024 12:00 EST POC UA Clarity CLEAR 11/28/2024 12:00 EST Medications and Immunizations Administered Medications Given During [...] Does their speech sound strange? TIME Call 9-1-1 at any sign of stroke ?? Heart [...] are strongly encouraged to quit. Please call [facility] [facility] at [phone] or [phone] ([phone]) or log in to [email or web address] for referrals to smoking cessation programs. ?? The National Suicide Prevention Hotline is available 17/05 if you or someone you know needs to find a reason to keep living. By calling 8-604-888-[employer] (6965) you'll be connected to a skilled, trained counselor at a crisis center in your area. [facility] Portal You can view and manage your care through the patient portal or by using a health care sangeeta of your choosing. [employer] is a website that allows you to securely view your medical information including your hospital discharge summary, office visit summaries, medications and follow-up visits. You can also request appointments, renew medications, and request access to your medical information using a health care sangeeta of your choosing, or just ask a question. You can enroll at [email or web address] or register during your next office visit. [facility], in keeping with [facility] guidance, no longer requires face masks [...] primary care provider, you may find a [facility] provider by calling [facility] at [phone]. Patient Care team information Care Team Personnel Name: Alda Rivera RN Position: [facility] RN Member Role: Primary Care Nurse Name: Princess Palacios RN Position: [facility] SN RN Member Role: Primary Care Nurse Name: Alyssa Arita RN Position: [facility] AMB Nurse Member Role: Primary Care Nurse Name: Mitzy Orona RN Position: [facility] RN Member Role: Primary Care Nurse Name: Hamilton Lopez RN Position: [facility] RN Member Role: Primary Care Nurse Name: Jessica Alexis RN Position: [facility] RN Member Role: Primary Care Nurse Name: Mohini Shook RN Position: [facility] RN Member Role: Primary Care Nurse Name: Vinny Walsh RN Position: [facility] RN Member Role: Primary Care Nurse Name: Cheryl Amin RN Position: [facility] RN Member Role: Primary Care Nurse Name: Pretty Davalos RN Position: [facility] RN Member Role: Primary Care Nurse Name: Lesly Villagran RN Position: [facility] RN Member Role: Primary Care Nurse Name: Tanna Baig RN Position: [facility] SN RN Member Role: Primary Care Nurse Name: Candi Cho RN Position: [facility] RN Member Role: Primary Care Nurse Name: Oliva Callejas MD Position: [facility] BEAD SUPERVISOR Member Role: [employer] BEAD SUPERVISOR Physician Address: [address] [place] [address] Team Leader - [place], [place] [address] Telecom: Name: Edilma Heath RN Position: [facility] RN Member Role: Primary Care Nurse Name: Nellie Henriquez RN Position: S RN Member Role: Primary Care Nurse Name: Stephania Bowens RN Position: [facility] RN Member Role: Primary Care Nurse Name: Uvaldo Shelley RN Position: S RN Member Role: Primary Care Nurse Name: Juvencio Mcneill RN Position: [facility] RN Member Role: Primary Care Nurse Name: Hallie Sheehan RN Position: [facility] RN Member Role: Primary Care Nurse Name: Oriana Thomas NP Position: [facility] PCO Associate Professional Member Role: PCP Address: [address] [place] [id number] Telecom: Name: Danika Aldridge RN Position: [facility] Allen RN Member Role: Primary Care Nurse Name: Adore Barclay RN Position: [facility] RN Member Role: Primary Care Nurse Name: Salvatore Strong RN Position: [facility] RN Member Role: Primary Care Nurse Name: Aishwarya Baltazar RN Position: [facility] RN Member Role: Primary Care Nurse Name: Kate Coyle RN Position: [facility] RN Member Role: Primary Care Nurse Name: Kandy Coates RN Position: [facility] RN Member Role: Primary Care Nurse Care Team Related Persons Name: EL LEWIS Insurance Providers Guarantor name: OPAL LEWIS Health Plan Information #: 1 Payer: HMO [employer] Member Number: [id number] Policy Number: NA Group Number: [id number] Health Plan Information #: 2 Payer: HMO [employer] Member Number: [id number] Policy Number: NA Group Number: [id number]
--- OUTSIDE RECORDS SUMMARY | 2024-12-14 13:57 | XMS_ITS | Clinical Summary ---
Author Organization [facility] Address [address] [place] [address] Care Team Providers Care Senior Integration Architect Name Role Phone Alisha Worley MD Primary Care Provider [phone] Medications Medication Sig Dispensed Refills Start Date End Date Status Levothyroxine Sodium (Tirosint) 125 MCG Cap Take 125 mcg by mouth daily on an empty stomach. Two capsules twice daily every day except Wednesday Active Levothyroxine Sodium (Tirosint) 125 MCG Cap Take 125 mcg by mouth daily on an empty stomach. 1 capsule on Wednesday Active methylphenidate (RITALIN) 20 MG tablet Take 20 mg by mouth daily. 2 talbets daily Active ziprasidone (GEODON) 40 MG capsule Take 40 mg by mouth daily. Every morning Active ziprasidone (GEODON) 40 MG capsule Take 40 mg by mouth daily. 3 tablets every night Active gabapentin (NEURONTIN) 600 MG tablet Take 600 mg by mouth 3 (three) times a day. Active lisdexamfetamine (VYVANSE) 70 MG capsule Take 70 mg by mouth every morning. Active metoPROLOL SUCCINATE (TOPROL-XL) 50 MG 24 hr tablet Take 50 mg by mouth daily. 3 tablets daily Active furosemide (LASIX) 80 MG tablet Take 80 mg by mouth daily. Active mirabegron ER (Myrbetriq) 50 MG Tablet SR 24 hr Take 50 mg by mouth. Active nabumetone (RELAFEN) 500 MG tablet Take 500 mg by mouth 2 (two) times a day. Active multivitamin (multivitamin) Tab tablet Take 1 tablet by mouth daily. Active Biotin 1000 MCG tablet Take 1,000 mcg by mouth daily. Active calcium carbonate-vitamin D 600 mg-400 unit tablet Take 1 tablet by mouth daily. Active lamoTRIgine (LaMICtal) 200 MG tablet Take 200 mg by mouth daily. Active QUEtiapine (SEROquel) 300 MG tablet Take 300 mg by mouth nightly. Active vitamin E 400 UNIT capsule Take 400 Units by mouth daily. Active Probiotic Product (E-House) Cap Take 1 capsule by mouth. Active acetaminophen (TYLENOL) 500 MG tablet Take 500 mg by mouth 4 times daily (every 6 hours) as needed for mild pain. Active zolpidem (AMBIEN) 10 MG tablet Take 10 mg by mouth nightly as needed for sleep. Active baclofen (LIORESAL) 10 MG tablet Take 10 mg by mouth 3 (three) times a day. Active Ascorbic Acid (VITAMIN C) 1000 MG tablet Take 1,000 mg by mouth daily. 2 tablets daily Active Cranberry 500 MG Cap Take 500 mg by mouth. 2 tabs daily Active clonazePAM (KlonoPIN) 1 MG tablet Take 1 mg by mouth 2 times daily (every 12 hours) as needed. Active rivaroxaban (Xarelto) 20 MG tablet Take 20 mg by mouth every evening with dinner. Take with meals. Active Active Problems Problem Noted Date Diagnosed Date Pulmonary hypertension, unspecified 11/27/2019 Pulmonary embolism 11/27/2019 Morbid obesity 11/27/2019 Sleep apnea 11/27/2019 Lung cancer, lower lobe 11/27/2019 Social History Tobacco Use Types Packs/Day Years Used Date Smoking Tobacco: Never Assessed Sex and Gender Information Value Date Recorded Sex Assigned at Not on file Gender Identity Not on file Sexual Orientation Not on file Last Filed Vital Signs Vital Sign Reading Time Taken Comments Blood Pressure 136/63 11/27/2019 10:41 AM EST Pulse 90 11/27/2019 10:41 AM EST Temperature - - Respiratory Rate - - Oxygen Saturation 95% 11/27/2019 11:00 AM EST Inhaled Oxygen Concentration - - Weight 150 kg (331 lb 11.2 oz) 11/27/2019 10:41 AM EST Height - - Body Mass Index - - Plan of Treatment Health Maintenance Due Date Last Done Comments Hepatitis C Virus Screening 1960 COVID-19 Vaccine (#1) 1967 HIV Screening 1975 DTaP/Tdap/Td Vaccines (1 - Tdap) 1981 Pneumococcal Vaccines 50+ (1 of 2 - PCV) 1981 Zoster (Shingles) Vaccine (1 of 2) 1981 Pap Smear (Ages 21-65) 1983 Mammogram 2002 Colonoscopy 2007 Influenza Vaccine 05/25/2024 RSV Vaccine 60 years and old er and Patients (1 - 1-dose 75+ series) 2037 Hepatitis B Vaccines Aged Out No long er eligible based on patient's age to complete this topic Care Teams Senior Integration Architect Relationship Specialty Start Date End Date Alisha Worley MD [address] [place] [address] PCP - General Internal Medicine 10/02/19
--- OUTSIDE RECORDS SUMMARY | 2024-12-14 13:57 | XMS_ITS | Continuity of Care Document ---
Author Organization [facility] Address [address] [facility] [address] [place] [address]- Support Name Relationship Address Phone JOSHUA RIGO spouse Unknown Unavailable BACHAND, EL Personal [...] OPAL Personal Relationship Unknown Unav ailable BACHAND, LE Personal Relationship Unknown Unav ailable BACHAND, EL [...] Unknown Unav ailable Care Team Providers Care Plant Etiologist Name Role Phone William DIAZ, Oriana Briseno Primary Care Physician Encounter [facility] ACCT R [id number] Date(s): 08/04/24 - 12/02/24 [facility] [address] [place] [address] Attending Physician: Jono Garcia MD Referring Physician: Oriana Thomas NP Encounter Type: Pre Office Visit Allergies, Adverse Reactions, Alerts Substance [...] virus vaccine, inactivated 09/05/15 Cb rded SARS-CoV-2(COVID-19)mRNA-LNP vac([id number]) 11/21/24 Recorded SARS-CoV-2(COVID-19)mRNA-LNP vac([id number]) 12/01/23 Recorded Measles/Mumps/Rubella Virus Vaccine 06/03/24 Recor ded tetanus-diphtheria toxoids (Td) 01/10/24 Given Hepatitis A Adult Vaccine 01/10/24 Given RSV vaccine preF3, recombinant 12/16/23 Recorded hepatitis B adult vaccine 12/16/23 Recorded [id number] bivalent booster vax 08/06/22 Recorded SARS-CoV-2 (COVID-19) mRNA-1273 vaccine 09/12/21 R ecorded SARS-CoV-2 (COVID-19) mRNA-1273 vaccine 12/27/20 R ecorded Zoster Vaccine Live 1 06/03/20 Recorded pneumococcal 13-valent vaccine 2 10/13/19 Recorded pneumococcal 23-valent vaccine 10/13/19 Recorded 1Result Comment: Unit: Unknown Route: Intramuscular Corn Husker: [email or web address] 2Result Comment: Unit: Unknown Route: Intramuscular Corn Husker: [employer] Medications acetaminophen 325 mg oral tablet [...] 5 Refills, Maintenance, 09/29/24 12:45:00 PM EST, [id number], 165, cm, 09/11/24 13:48:00 EST, Height, 98.6, kg, 04/19/24 10:29:00 EDT, Dry Weight Start Date: 09/29/24 Status: Ordered Quantity: 90.0 Unit: capsule Repeat number: 1 baclofen 10 mg oral tablet 10 mg, 1, tablet, By Mouth, 3 times a day, # 90 tablet, Refills 0, Tot. Refills 0, Maintenance, 01/10/24 1:26:00 PM EDT, Route to Pharmacy Electronically, [facility]/pharmacy #[id number], Partial fill upon patientrequest if the [...] Refills, Maintenance, 01/10/24 1:28:00 PM EDT, Capsule, [facility]/pharmacy #[id number], Partial fill upon patient request if [...] 1:31:00 PM EDT, Route to Pharmacy Electronically, [facility]/pharmacy #[id number], Partial fill upon patient request if [...] Refills, Maintenance, 06/15/24 8:07:00 AM EDT, Tablet, [facility]/pharmacy #[id number], Partial fill upon patient request if [...] 11 Refills, Maintenance, 11/23/24 11:49:00 AM EST, [facility]/pharmacy #[id number], stop the previous 112mcg script, 165, [...] 11 Refills, Maintenance, 11/23/24 11:48:00 AM EST, [facility]/pharmacy #[id number], stop the previous 112mcg script, 165, [...] 1:33:00 PM EDT, 01/10/24 1:33:00 PM EDT, [facility]/pharmacy #[id number], Partial fill upon patient request if [...] 12:10:00 PM EDT, Route to Pharmacy Electronically, [facility], Partial fill upon patient [...] 1 Refills, Maintenance, 10/04/24 9:19:00 AM EST, [id number], 165, cm, 09/11/24 13:48:00 EST, Height, 98.6, [...] By Mouth, 2 times a day, for 5 days, # 10 capsule, 0 Refills, Acute 12/03/24 12:04:00 PM EST, 11/28/24 12:04:00 PM EST, Capsule, [id number], Partial fill upon patient request if the prescription is for a schedule II opioid drug., 165, cm, 11/28/24 11:14:00 EST, Height, 108.2, kg, 11/09/24 11:24:00 EST, Dry Weight Start Date: 11/28/24 Stop Date: 12/03/24 Status: Ordered Quantity: 10.0 Unit: capsule Repeat number: 1 Indication: Unspecified symptoms and signs involving the genitourinary system nystatin [id number] u oral capsule 1 capsule = 500,000 [...] 1 Refills, Maintenance, 08/17/24 2:49:00 PM EDT, [id number], 165, cm, 08/07/24 14:31:00 EDT, Height, 98.6, kg, 04/19/24 10:29:00 EDT, Dry Weight Start Date: 08/17/24 Status: Ordered Quantity: 60.0 Unit: tablet Repeat number: 1 warfarin 5 mg oral tablet See Instructions, Take 1 - 2 tablets By Mouth Once Daily as directed by [facility], # 60 tablet, 11 Refills, Maintenance, 05/04/24 11:39:00 AM EDT, [facility]/pharmacy #[id number], Partial fill upon patient request if [...] Refills, Maintenance, 03/03/24 4:43:00 PM EDT, Tablet, [facility]/pharmacy #[id number], Partial fill upon patient request if theprescription is for a schedule II opioid drug., 165, cm, 03/03/24 11:07:00 EDT, Height, 101.7, kg, 10/20/23 10:08:00 EST, Dry Weight Start Date: 03/03/24 Status: Ordered Quantity: 90.0 Unit: tablet Repeat number: 4 ziprasidone 40 mg oral capsule = 40 mg, By Mouth, Daily at bedtime, # 30 capsule, 0 Refills, Maintenance, 07/12/23 12:08:00 PM EDT,Capsule, [facility], Partial fill upon patient [...] Irritable bowel syndrome with constipation Confirmed Active jail current use of anticoagulant Confirmed Active Lumbar [...] 3Not immune to mumps by titer 03/2024. Social History Social History Type Response Smoking Status Former smoker, quit more than 30 days ago; Other: quit 23 years ago; entered on: 06/01/23 Sex Sex Representation Female (finding) Patient Care team information Care Team Personnel Name: Alda Rivera RN Position: [facility] RN Member Role: Primary Care Nurse Name: Princess Palacios RN Position: [facility] SN RN Member Role: Primary Care Nurse Name: Alyssa Arita RN Position: [facility] AMB Nurse Member Role: Primary Care Nurse Name: Mitzy Orona RN Position: [facility] RN Member Role: Primary Care Nurse Name: Hamilton Lopez RN Position: [facility] RN Member Role: Primary Care Nurse Name: Jessica Alexis RN Position: [facility] RN Member Role: Primary Care Nurse Name: Mohini Shook RN Position: [facility] RN Member Role: Primary Care Nurse Name: Vinny Walsh RN Position: [facility] RN Member Role: Primary Care Nurse Name: Cheryl Amin RN Position: [facility] RN Member Role: Primary Care Nurse Name: Pretty Davalos RN Position: [facility] RN Member Role: Primary Care Nurse Name: Lesly Villagran RN Position: [facility] RN Member Role: Primary Care Nurse Name: Tanna Baig RN Position: [facility] SN RN Member Role: Primary Care Nurse Name: Candi Cho RN Position: [facility] RN Member Role: Primary Care Nurse Name: Oliva Callejas MD Position: [facility] BELLY DANCER MD Member Role: [employer] BELLY DANCER Physician Address: [address] [place] [address] [place] [address]- Telecom: Name: Edilma Heath RN Position: [facility] RN Member Role: Primary Care Nurse Name: Nellie Henriquez RN Position: [facility] RN Member Role: Primary Care Nurse Name: Stephania Bowens RN Position: [facility] RN Member Role: Primary Care Nurse Name: Uvaldo Shelley RN Position: [facility] RN Member Role: Primary Care Nurse Name: Juvencio Mcneill RN Position: [facility] RN Member Role: Primary Care Nurse Name: Hallie Sheehan RN Position: [facility] RN Member Role: Primary Care Nurse Name: Oriana Thomas NP Position: [facility] PCO Associate Professional Member Role: PCP Address: [address] [place] [id number] Telecom: Name: Danika Aldridge RN Position: [facility] Allen RN Member Role: Primary Care Nurse Name: Adore Barclay RN Position: [facility] RN Member Role: Primary Care Nurse Name: Salvatore Strong RN Position: [facility] RN Member Role: Primary Care Nurse Name: Aishwarya Baltazar RN Position: [facility] RN Member Role: Primary Care Nurse Name: Kate Coyle RN Position: [facility] RN Member Role: Primary Care Nurse Name: Kandy Coates RN Position: [facility] RN Member Role: Primary Care Nurse Care Team Related Persons Name: EL LEWIS Insurance Providers Guarantor name: OPAL LEWIS Health Plan Information #: 1 Payer: HMO [employer] Member Number: [id number] Policy Number: NA Group Number: [id number] Health Plan Information #: 2 Payer: HMO [employer] Member Number: [id number] Policy Number: NA Group Number: [id number]
--- OUTSIDE RECORDS SUMMARY | 2024-12-14 13:57 | XMS_ITS ---
Author Organization [facility] on Address Unknown Allergies, Adverse Reactions, Alerts Substance Reaction Status Noted Date Resolved Date sulfADIAZINE active 04/28/2021 SULFA active 04/28/2021 Soy active 04/28/2021 Problems Problem Status Start Date End Date INFECTION AND INFLAMMATORY R EACTION DUE TO INTERNAL FIXATION DEVICE OF RIGHT FEMUR, INITIAL ENCOUNTER (Primary) (T84.620A - ICD-10-CM) ACTIVE 04/26/2021 DISRUPTION OF EXTERNAL OPERA TION (SURGICAL) WOUND, NOT ELSEWHERE CLASSIFIED, INITIAL ENCOUNTER (T81.31XA - ICD-10-CM) ACTIVE 04/26/2021 ANEMIA, UNSPECIFIED (D64.9 - ICD-10-CM) ACTIVE 0 04/26/2021 PRIMARY PULMONARY HYPERTENSION (I27.0 - ICD-10-CM) ACT AVELINO 04/26/2021 CHRONIC RESPIRATORY FAILURE, UNSPECIFIED WHETHER WITH HYPOXIA OR HYPERCAPNIA (J96.10 - ICD-10-CM) ACTIVE 04/26/2021 MALIGNANT NEOPLASM OF UNSPEC IFIED SITE OF UNSPECIFIED FEMALE BREAST (C50.919 - ICD-10-CM) ACTIVE 04/26/2021 SADDLE EMBOLUS OF PULMONARY ARTERY WITHOUT ACUTE COR PULMONALE (I26.92 - ICD-10-CM) ACTIVE 04/26/2021 SCHIZOAFFECTIVE DISORDER, BIPOLAR TYPE (F25.0 - ICD-10 -CM) ACTIVE 04/27/2021 ARTHRALGIA OF TEMPOROMANDIBU LAR JOINT, UNSPECIFIED SIDE (M26.629 - ICD-10-CM) ACTIVE 04/26/2021 HYPOTHYROIDISM, UNSPECIFIED (E03.9 - ICD-10-CM) ACTIVE 04/26/2021 OTHER POLYOSTEOARTHRITIS (M15.8 - ICD-10-CM) ACTIVE 04/26/2021 SLEEP APNEA, UNSPECIFIED (G47.30 - ICD-10-CM) ACTIVE 04/26/2021 ANXIETY DISORDER, UNSPECIFIED (F41.9 - ICD-10-CM) ACTI VE 04/26/2021 Encounters Encounter Performer Performer Role Encounter Diagnoses Location Date Discharge - Discharged to home or self care - [facility] - Private home/apt. with home health services [facility] 04/26/2021 06:21 pm EDT - 05/31/2021 12:05 pm EDT Immunizations Vaccine Date SARS-COV-2 (COVID-19) 12/27/2020 12:00 a m EST Social History
--- OUTSIDE RECORDS SUMMARY | 2024-12-14 13:58 | XMS_ITS | Encounter Summary ---
Author Organization [facility] Address [address] [place] [address] Care Team Providers Care Program Checker Name Role Phone Alisha Worley MD Primary Care Provider Encounter Details Date Type Department Care Team (Late st Contact Info) Description 11/20/2020 Scanned Document [facility] Heart & Vascular [facility] [address] [place] [phone] Gerson Schwab MD [address] [address] Social History Tobacco Use Types Packs/Day Years Used Date Smoking Tobacco: Never Assessed Sex and Gender Information Value Date Recorded Sex Assigned at Not on file Gender Identity Not on file Sexual Orientation Not on file documented as of this encounter Plan of Treatment Not on file documented as of this encounter Visit Diagnoses Not on filedocumented in this encounter Care Teams Program Checker Relationship Specialty Start Date End Date Alisha Worley MD [address] [place] [address] PCP - General Internal Medicine 10/02/19 documented as of this encounter
--- OUTSIDE RECORDS SUMMARY | 2024-12-14 13:58 | XMS_ITS | Encounter Summary ---
Author Organization [facility] Address [address] [place] [address] Care Team Providers Care Continuous Absorption Process Operator Name Role Phone Alisha Worley MD Primary Care Provider [phone] Encounter Details Date Type Department Care Team (Late st Contact Info) Description 11/10/2023 Scanned Document [facility] Department of Pulmonology [place] [address] [facility] [address] [place] [phone] Souleymane Martínez MD [address] [facility] [address] [place] [address] Social History Tobacco Use Types Packs/Day Years Used Date Smoking Tobacco: Never Assessed Sex and Gender Information Value Date Recorded Sex Assigned at Not on file Gender Identity Not on file Sexual Orientation Not on file documented as of this encounter Plan of Treatment Not on file documented as of this encounter Visit Diagnoses Not on filedocumented in this encounter Care Teams Continuous Absorption Process Operator Relationship Specialty Start Date End Date Alisha Worley MD [address] [place] [address] PCP - General Internal Medicine 10/02/19 documented as of this encounter
--- OUTSIDE RECORDS SUMMARY | 2024-12-14 13:58 | XMS_ITS | Encounter Summary ---
Author Organization [facility] Address [address] [place] [address] Care Team Providers Care Claims Sorter Name Role Phone Alisha Worley MD Primary Care Provider Encounter Details Date Type Department Care Team (Late st Contact Info) Description 12/05/2019 Scanned Document [facility] Heart & Vascular [facility] [address] [facility] [address] [place] [phone] Souleymane Martínez MD [address] [facility] [address] [place] [address] Social History Tobacco Use Types Packs/Day Years Used Date Smoking Tobacco: Never Assessed Sex and Gender Information Value Date Recorded Sex Assigned at Not on file Gender Identity Not on file Sexual Orientation Not on file documented as of this encounter Plan of Treatment Not on file documented as of this encounter Visit Diagnoses Not on filedocumented in this encounter Care Teams Claims Sorter Relationship Specialty Start Date End Date Alisha Worley MD [address] [place] [address] PCP - General Internal Medicine 10/02/19 documented as of this encounter
--- OUTSIDE RECORDS SUMMARY | 2024-12-14 13:58 | XMS_ITS | Encounter Summary ---
Author Organization [facility] Address [address] [place] [address] Care Team Providers Care Parts Salesperson Name Role Phone Alisha Worley MD Primary Care Provider Encounter Details Date Type Department Care Team (Late st Contact Info) Description 12/05/2019 Scanned Document [facility] Heart & Vascular [place] [facility] [address] [facility] [address] [place] [phone] Souleymane Martínez MD [address] [facility] [address] [place] [address] Social History Tobacco Use Types Packs/Day Years Used Date Smoking Tobacco: Never Assessed Sex and Gender Information Value Date Recorded Sex Assigned at Not on file Gender Identity Not on file Sexual Orientation Not on file documented as of this encounter Plan of Treatment Not on file documented as of this encounter Visit Diagnoses Not on filedocumented in this encounter Care Teams Parts Salesperson Relationship Specialty Start Date End Date Alisha Worley MD [address] [place] [address] PCP - General Internal Medicine 10/02/19 documented as of this encounter
--- OUTSIDE RECORDS SUMMARY | 2024-12-14 13:58 | XMS_ITS | Patient Health Record ---
Author [facility] Address [address] [place] [address] Care Team Providers Care Ceramic Tile Mechanic Name Role Phone Brunilda CAHNDLER, Alisha Culver Primary Care Provider Un available Black, Kaylee Unavailable [phone] Allergies Allergen (clinical drug ingredient) Drug/Non Drug Allergy documented on EMR Reaction Allergy Type Onset Date Status sulfamethoxazole / trimethoprim Bactrim anaphylaxis Drug Allergy Active adhesive tape blisters, rash Drug Allergy Active Soybean oral tingling/ rash Drug Allergy Active Reason For Referral No Information Medications Medication SIG (Take, Route, Frequency, Duration) Notes Start Date End Date Status Zolpidem Tartrate No t-Taking Zolpidem & Diet Manage Prod Not-Taking Lamisil 250 250 MG 1 Tab for 7 days(1 week) then stop for 3 weeks -repeat cycle 12 months Oral Daily for 12 months 11/20/2016 Active MiraLax 17 every other day PRN Act isaak SEROquel 300 MG Orally Acti ve QUEtiapine Fumarate Active Super B Complex Acti ve Vitamin E 400 UNIT 1 capsule Orally Once a day Active Probiotic Orally Active Nabumetone 750 MG 1 tablet Orally Twice a day Active Ritalin 20 MG Orally Twice a day Active Vyvanse 70 MG Orally Once a day binge eating Active Cyclobenzaprine HCl Not-Taking Ciclopirox Olamine N ot-Taking LaMICtal 200 MG 2 tablets Orally Active traMADol HCl Not-Pablo ing Methocarbamol Active Topiramate Not-Takin g Metoprolol Succinate ER Active Multivitamins Not-Ta jorgito Estring Active Metoprolol Succinate Not-Taking Neurontin Active lamoTRIgine Not-Taki ng Geodon Active LamISIL Not-Taking Ibuprofen Not-Taking Fish Oil Not-Taking metroNIDAZOLE Active Levothyroxine Sodium Active Aspirin 81 MG 1 tablet Orally Once a day Active Tylenol Active Ciclopirox Olamine 0.77% external Apply to effected areas twice a day for 30 days 08/14/2015 Not-Taking Biotin Not-Taking Amitriptyline HCl No t-Taking Lamisil 250 250 MG 1 Tab Oral Daily for 90 01/01/2015 Not-Taking Ciclopirox Olamine 0.77% external Apply to effected areas twice a day for 30 days 11/02/2016 Not-Taking Ciclopirox Olamine 0.77 % 1 application to affected area Externally Twice a day for 4 weeks 08/20/2011 Not-Taking Colace Not-Taking Flexeril Not-Taking Lasix Not-Taking Fludrocortisone Acetate Three times a Week Active clonazePAM 1 MG Orally BID Act isaak Adempas 2.5 MG 1 tablet Orally Three times a day Active Calcium Citrate Not- Taking Xarelto 20 MG 1 tablet with food Orally Once a day for 30 day(s) Active Baclofen 10 MG 1 tablet with food or milk Orally Active Percocet 5-325 MG 1 tablet as needed Orally every 6 hrs Active Lovenox 150 MG/ML Injection Ac tive Myrbetriq 50 MG 1 tablet Orally Once a day Active Ciclopirox Olamine 0.77 % 1 application to affected area Externally Twice a day for 30 days 01/18/2018 Active Gabapentin Active Tirosint 2 Orally Once a day except for Wednesday Active Ciclopirox Olamine 0.77% external Apply to effected areas twice a day for 30 days 12/24/2014 Not-Taking Ciclopirox Olamine 0.77% external Apply to effected areas twice a day for 30 days Active Immunizations Vaccine Route Administration Date Status Comme nts COVID-19 Moderna Vaccine Unknown 12/27/2020 Administered 1st vaccine 03/14 Social History Tobacco use other than smoking: Question Answer Notes Are you an other tobacco user? No Problems Problem Type SNOMED Code ICD Code Onset Dates Problem Status W/U Status Risk Notes Problem Acquired hallux valgus (97467174) Hallux valgus (acquired), left foot (M20.12) Active confirmed Problem Acquired hallux valgus (62117282) Hallux valgus (acquired), right foot (M20.11) Active confirmed Plan Of Treatment Pending Test Test Name Order Date *Liver Function Test (LFT) 12/24/2014 *Liver Function Test (LFT) 11/02/2016 [id number] NAIL, 6 OR MORE 11/02/2016 [id number] NAIL, 6 OR MORE 03/09/2017 [id number] NAIL, 6 OR MORE 06/18/2017 [id number] NAIL, 6 OR MORE 10/27/2017 [id number] NAIL, 6 OR MORE 06/14/2018 [id number] NAIL, 6 OR MORE 11/15/2018 [id number] NAIL, 6 OR MORE 07/07/2019 [id number] NAIL, 6 OR MORE 04/08/2020 [id number] NAIL, 6 OR MORE 07/31/2020 [id number] NAIL, 6 OR MORE 01/29/2021 [id number] NAIL, 6 OR MORE 05/15/2015 [id number] NAIL, 6 OR MORE 08/14/2015 [id number] NAIL, 6 OR MORE 02/12/2016 [id number] NAIL, 6 OR MORE 05/13/2016 [id number] NAIL, 6 OR MORE 08/20/2011 [id number] NAIL, 6 OR MORE 11/16/2011 [id number] NAIL, 6 OR MORE 12/24/2014 Nail Panel 01/18/2018 Insurance Providers Payer Name Payer Address Payer Phone Subscriber Number Group Number Insured Name Patient Relationship to Insured Coverage Start Date Coverage End Date [facility] [address] [place] [address] [id number] Tyron Pittman Spouse - patient is the spouse of the insured Medical (General) History Medical History History ICD Code bipolar disorder mumps thyroid disorder psychiatric disorder headaches/migraines Hiatal hernia chicken pox cancer back, hip, knee pain Arthritis Anxiety Depression Fibromyalgia Gall bladder problems High blood pressure Neuropathy Psychiatric disorder Thyroid disorder Surgical History Surgery Date(Month/Year) breast surgery 1999 cholecystectomy 2001 lap band 2009 right hip replacement 2012 Hospitalization History Reason Date(Month/Year) [facility] lower lobectomy 09/22/18 [place] Collapsed lung 10/11
--- OUTSIDE RECORDS SUMMARY | 2024-12-14 13:58 | XMS_ITS | Continuity of Care Document ---
Author Organization [facility] Address [address] [place] [address]- Support Name Relationship Address Phone EL LEWIS A spouse Unknown Unavailable BACHAND, EL Personal Relationship [...] Unknown Unav ailable Care Team Providers Care Health Actuary Name Role Phone William DIAZ, Oriana Briseno Primary Care Physician Encounter [facility] Date(s): 10/16/24 - 11/15/24 [facility] [address] [place] [address] Encounter Type: Triage Allergies, Adverse Reactions, Alerts Substance Criticality Severity [...] hepatitis B adult vaccine 12/16/23 Recorded SARS-CoV-2(COVID-19)mRNA-LNP vac([id number]) 12/01/23 Recorded [id number] bivalent booster vax 08/06/22 Recorded SARS-CoV-2 (COVID-19) mRNA-1273 vaccine 09/12/21 R ecorded SARS-CoV-2 (COVID-19) mRNA-1273 vaccine 12/27/20 R ecorded Zoster Vaccine Live 1 06/03/20 Recorded zoster vaccine, inactivated 06/03/20 Recorded pneumococcal 13-valent vaccine 2 10/13/19 Recorded pneumococcal 23-valent vaccine 10/13/19 Recorded 1Result Comment: Unit: Unknown Route: Intramuscular Event Manager: [employer] 2Result Comment: Unit: Unknown Route: Intramuscular Event Manager: Adomo Medications acetaminophen 325 mg oral tablet 975 [...] Maintenance, 09/29/24 12:45:00 PM EST, [id number], 165, cm, 09/11/24 13:48:00 EST, Height, 98.6, kg, 04/19/24 10:29:00 EDT, Dry Weight Start Date: 09/29/24 Status: Ordered Quantity: 90.0 Unit: capsule Repeat number: 1 baclofen 10 mg oral tablet 10 mg, 1, tablet, By Mouth, 3 times a day, # 90 tablet, Refills 0, Tot. Refills 0, Maintenance, 01/10/24 1:26:00 PM EDT, Route to Pharmacy Electronically, [facility]/pharmacy #[id number], Partial fill upon patientrequest if the [...] 01/10/24 1:28:00 PM EDT, Capsule, [facility]/pharmacy #[id number], Partial fill upon patient request if [...] EDT, Route to Pharmacy Electronically, [facility]/pharmacy #[id number], Partial fill upon patient request if [...] Maintenance, 07/10/24 11:14:00 AM EDT, [facility]/pharmacy #[id number], Partial fill upon patient request if [...] 06/15/24 8:07:00 AM EDT, Tablet, [facility]/pharmacy #[id number], Partial fill upon patient request if [...] Maintenance, 11/09/24 11:43:00 AM EST, [facility]/pharmacy #[id number], dispense generic, 165, cm, 11/09/24 11:24:00 EST, Height, 108.2, kg, 11/09/24 11:24:00 EST, Dry Weight Start Date: 11/09/24 Status: Ordered Quantity: 200.0 Unit: each Repeat number: 4 Indication: Hypothyroidism, unspecified Lovenox 100 mg/mL injectable solution = 100 mg, Subcutaneous Injection, Every 12 hours, *Note: Treatment = 1mg/kg/dose*, # 14 each, 0 Refills, Maintenance, 10/02/24 11:24:00 AM EST, [facility]/pharmacy #[id number], Partial fill upon patient request ifthe [...] EDT, 01/10/24 1:33:00 PM EDT, [facility]/pharmacy #[id number], Partial fill upon patient request if [...] 12:10:00 PM EDT, Route to Pharmacy Electronically, [facility], Partial fill upon patient [...] Maintenance, 10/04/24 9:19:00 AM EST, [facility] [id number], 165, cm, 09/11/24 13:48:00 EST, Height, 98.6, [...] 90.0 Unit: capsule Repeat number: 1 nystatin [id number] u oral capsule 1 capsule = 500,000 [...] Maintenance, 08/17/24 2:49:00 PM EDT, [facility] [address]75, 165, cm, 08/07/24 14:31:00 EDT, Height, 98.6, [...] 0 Refills, Maintenance, 07/12/23 12:08:00 PM EDT,Capsule, [facility], Partial fill upon patient request if [...] Team Personnel Name: Alda Rivera RN Position: [facility] RN Member Role: Primary Care Nurse Name: Princess Palacios RN Position: [facility] SN RN Member Role: Primary Care Nurse Name: Alyssa Arita RN Position: [facility] AMB Nurse Member Role: Primary Care Nurse Name: Mitzy Orona RN Position: [facility] RN Member Role: Primary Care Nurse Name: Hamilton Lopez RN Position: [facility] RN Member Role: Primary Care Nurse Name: Jessica Alexis RN Position: [facility] RN Member Role: Primary Care Nurse Name: Mohini Shook RN Position: [facility] RN Member Role: Primary Care Nurse Name: Vinny Walsh RN Position: [facility] RN Member Role: Primary Care Nurse Name: Cheryl Amin RN Position: [facility] RN Member Role: Primary Care Nurse Name: Pretty Davalos RN Position: [facility] RN Member Role: Primary Care Nurse Name: Lesly Villagran RN Position: [facility] RN Member Role: Primary Care Nurse Name: Tanna Baig RN Position: [facility] SN RN Member Role: Primary Care Nurse Name: Candi Cho RN Position: [facility] RN Member Role: Primary Care Nurse Name: Oliva Callejas MD Position: [facility] NETWORK SUPPORT TECHNICIAN MD Member Role: [employer] NETWORK SUPPORT TECHNICIAN Physician Address: [address] [place], [place] [address]s [facility] [employer] Service Advisor [place], [place] [address] Telecom: Name: Edilma Heath RN Position: [facility] RN Member Role: Primary Care Nurse Name: Nellie Henriquez RN Position: [facility] RN Member Role: Primary Care Nurse Name: Stephania Bowens RN Position: [facility] RN Member Role: Primary Care Nurse Name: Uvaldo Shelley RN Position: [facility] RN Member Role: Primary Care Nurse Name: Juvencio Mcneill RN Position: [facility] RN Member Role: Primary Care Nurse Name: Hallie Sheehan RN Position: [facility] RN Member Role: Primary Care Nurse Name: Oriana Thomas NP Position: [facility] PCO Associate Professional Member Role: PCP Address: [address] [place] [address]- [place] Telecom: Name: Danika Aldridge RN Position: [facility] Allen RN Member Role: Primary Care Nurse Name: Adore Barclay RN Position: S RN Member Role: Primary Care Nurse Name: Salvatore Strogn RN Position: S RN Member Role: Primary Care Nurse Name: Aishwarya Baltazar RN Position: S RN Member Role: Primary Care Nurse Name: Kate Coyle RN Position: [facility] RN Member Role: Primary Care Nurse Name: Kandy Coates RN Position: [facility] RN Member Role: Primary Care Nurse Care Team Related Persons Name: EL LEWIS Insurance Providers Guarantor name: OPAL LEWIS [facility] Plan Information #: 1 Payer: HMO BLUE IN NETWORK Member Number: NA Policy Number: NA Group Number: NA
--- OUTSIDE RECORDS SUMMARY | 2024-12-14 13:58 | XMS_ITS | Continuity of Care Document ---
Author Organization [facility] Address [address] [facility] [address] [place] [address]- Support Name Relationship Address Phone JOSHUA RIGO [...] Unknown Unav ailable Care Team Providers Care Dietetic Technician Name Role Phone William DIAZ, Oriana Briseno Primary Care Physician Encounter [facility] [id number] Date(s): 11/16/24 - 11/23/24 [facility] [address] [place] [address] Attending Physician: Jono Garcia MD Encounter Type: Office Visit Allergies, Adverse Reactions, [...] 09/22/18 Cb rded influenza virus vaccine, inactivated 8/31/17 Cb rded influenza virus vaccine, inactivated 08/11/16 Cb rded influenza virus vaccine, inactivated 09/05/15 Cb rded tetanus-diphtheria toxoids (Td) 01/10/24 Given Hepatitis A Adult Vaccine 01/10/24 Given RSV vaccine preF3, recombinant 12/16/23 Recorded hepatitis B adult vaccine 12/16/23 Recorded SARS-CoV-2(COVID-19)mRNA-LNP vac([id number]) 12/01/23 Recorded [id number] bivalent booster vax 08/06/22 Recorded SARS-CoV-2 (COVID-19) mRNA-1273 vaccine 09/12/21 R ecorded SARS-CoV-2 (COVID-19) mRNA-1273 vaccine 12/27/20 R ecorded Zoster Vaccine Live 1 06/03/20 Recorded zoster vaccine, inactivated 06/03/20 Recorded pneumococcal 13-valent vaccine 2 10/13/19 Recorded pneumococcal 23-valent vaccine 10/13/19 Recorded 1Result Comment: Unit: Unknown Route: Intramuscular Octave Board Racker: [employer] 2Result Comment: Unit: Unknown Route: Intramuscular Octave Board Racker: [email or web address] Medications acetaminophen 325 mg oral tablet 975 [...] 5 Refills, Maintenance, 09/29/24 12:45:00 PM EST, [facility] [id number], 165, cm, 09/11/24 13:48:00 EST, Height, 98.6, kg, 04/19/24 10:29:00 EDT, Dry Weight Start Date: 09/29/24 Status: Ordered Quantity: 90.0 Unit: capsule Repeat number: 1 baclofen 10 mg oral tablet 10 mg, 1, tablet, By Mouth, 3 times a day, # 90 tablet, Refills 0, Tot. Refills 0, Maintenance, 01/10/24 1:26:00 PM EDT, Route to Pharmacy Electronically, [facility]/pharmacy #[id number], Partial fill upon patientrequest if [...] Refills, Maintenance, 01/10/24 1:28:00 PM EDT, Capsule, [facility]/pharmacy #0373, Partial fill upon patient request [...] 1:31:00 PM EDT, Route to Pharmacy Electronically, [facility]/pharmacy #0373, Partial fill upon patient request [...] 1 Refills, Maintenance, 07/10/24 11:14:00 AM EDT, [facility]/pharmacy #0373, Partial fill upon patient request [...] Refills, Maintenance, 06/15/24 8:07:00 AM EDT, Tablet, [facility]/pharmacy #0373, Partial fill upon patient request [...] 11 Refills, Maintenance, 11/23/24 11:49:00 AM EST, [facility]/pharmacy #0373, stop the previous 112mcg script, [...] 11 Refills, Maintenance, 11/23/24 11:48:00 AM EST, [facility]/pharmacy #0373, stop the previous 112mcg script, 165, cm, 11/16/24 11:42:00 EST, Height, 108.2, kg, 11/09/24 11:24:00 EST, Dry Weight Start Date: 11/23/24 Status: Ordered Quantity: 30.0 Unit: tablet Repeat number: 12 Indication: Other specified hypothyroidism Lovenox 100 mg/mL injectable solution = 100 mg, Subcutaneous Injection, Every 12 hours, *Note: Treatment = 1mg/kg/dose*, # 14 each, 0 Refills, Maintenance, 10/02/24 11:24:00 AM EST, [facility]/pharmacy #0373, Partial fill upon patient request [...] 1:33:00 PM EDT, 01/10/24 1:33:00 PM EDT, [facility]/pharmacy #0373, Partial fill upon patient request [...] 12:10:00 PM EDT, Route to Pharmacy Electronically, [facility], Partial fill upon patient request [...] 1 Refills, Maintenance, 10/04/24 9:19:00 AM EST, [facility], 165, cm, 09/11/24 13:48:00 EST, Height, 98.6, [...] 90.0 Unit: capsule Repeat number: 1 nystatin [id number] u oral capsule 1 capsule = 500,000 [...] 1 Refills, Maintenance, 08/17/24 2:49:00 PM EDT, [facility] [address], 165, cm, 08/07/24 14:31:00 EDT, Height, 98.6, [...] 0 Refills, Maintenance, 07/12/23 12:08:00 PM EDT,Capsule, [facility], Partial fill upon patient request [...] oldest [Reference Range]: 1 Height 165 cm (11/16/24 11:42 AM) Weight 108.2 kg (11/16/24 11:42 AM) Oxygen Saturation [94-100 %] 98 % (11/16/24 11:42 AM) Pulse Rate [55-90 bpm] 93 bpm *H* (11/16/24 11:42 AM) Body Mass Index [18.5-24.99 kg/m2] 39.74 kg/m2 *>HHI* (11/16/24 11:42 AM) Blood Pressure [90-138/55-84 mm Hg] 130/ 44mm Hg (11/16/24 11:42 AM) Respiratory Rate [16-30 br/min] 20 br/mi n (11/16/24 11:42 AM) Mode of Delivery (Oxygen) Room air (11/16/24 11:42 AM) Blood pressure sites Arm, right (11/16/24 11:42 AM) Weight Obtained Via Bed scale (11/16/24 11:42 AM) Social History Social History Type Response Smoking Status Former smoker, quit more than 30 days ago; Other: quit 23 years ago; entered on: 06/01/23 Sex Sex Representation Female (finding) Patient Care team information Care Team Personnel Name: Alda Rivera RN Position: [facility] RN Member Role: Primary Care Nurse Name: Princess Palacios RN Position: [facility] RN Member Role: Primary Care Nurse Name: Alyssa Arita RN Position: [facility] [place] Nurse Member Role: Primary Care Nurse Name: Mitzy Orona RN Position: [facility] RN Member Role: Primary Care Nurse Name: Hamilton Lopez RN Position: [facility] RN Member Role: Primary Care Nurse Name: Jessica Alexis RN Position: [facility] RN Member Role: Primary Care Nurse Name: Mohini Shook RN Position: [facility] RN Member Role: Primary Care Nurse Name: Vinny Walsh RN Position: [facility] RN Member Role: Primary Care Nurse Name: Cheryl Amin RN Position: [facility] RN Member Role: Primary Care Nurse Name: Pretty Davalos RN Position: [facility] RN Member Role: Primary Care Nurse Name: Lesly Villagran RN Position: [facility] RN Member Role: Primary Care Nurse Name: Tanna Baig RN Position: [facility] SN RN Member Role: Primary Care Nurse Name: Candi Cho RN Position: [facility] RN Member Role: Primary Care Nurse Name: Oliva Callejas MD Position: [facility] VOICE INTERCEPT TECHNICIAN MD Member Role: [employer] VOICE INTERCEPT TECHNICIAN Physician Address: [address] [place] [address] Provider Relations Advocate [place], [place] [address] Telecom: Name: Edilma Heath RN Position: [facility] RN Member Role: Primary Care Nurse Name: Nellie Henriquez RN Position: [facility] RN Member Role: Primary Care Nurse Name: Stephania Bowens RN Position: [facility] RN Member Role: Primary Care Nurse Name: Uvaldo Shelley RN Position: [facility] RN Member Role: Primary Care Nurse Name: Juvencio Mcneill RN Position: [facility] RN Member Role: Primary Care Nurse Name: Hallie Sheehan RN Position: [facility] RN Member Role: Primary Care Nurse Name: Oriana Thomas NP Position: [facility] PCO Associate Professional Member Role: PCP Address: [address] [place], [place] [address] Telecom: Name: Danika Aldridge RN Position: [facility] Rad RN Member Role: Primary Care Nurse Name: Adore Barclay RN Position: [facility] RN Member Role: Primary Care Nurse Name: Salvatore Strong RN Position: [facility] RN Member Role: Primary Care Nurse Name: Aishwarya Baltazar RN Position: [facility] RN Member Role: Primary Care Nurse Name: Kate Coyle RN Position: S RN Member Role: Primary Care Nurse Name: Kandy Coates RN Position: S RN Member Role: Primary Care Nurse Care Team Related Persons Name: EL LEWIS Insurance Providers Guarantor name: OPAL LEWIS Health Plan Information #: 1 Payer: HMO BLUE IN NETWORK Member Number: [id number] Policy Number: NA Group Number: [id number] Health Plan Information #: 2 Payer: HMO BLUE IN NETWORK Member Number: [id number] Policy Number: NA Group Number: NA
--- OUTSIDE RECORDS SUMMARY | 2024-12-14 13:58 | XMS_ITS | Data Portability ---
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 Palomares Who was available but who did not see the patient. HPI: Patient comes in for recheck of bilateral knee pain. Has known osteoarthritis in the medial compartment of the knee(s). Been treated conservatively with cortisone injection to this point with 2 or so months relief of symptoms. Intermittent days with pain. No new injury or modalities. Past family, medical, social history and review of systems has been reviewed, updated and is located in the patient? s chart. Examination:The patient is well appearing and in no apparent distress. Alert and oriented x3. Vital signs per intake sheet. Examination of the bilateral knees reveals no effusion erythema or warmth. Decreased range of motion. Lower extremity varus deformity. Point tender over the medial joint line. Calf soft and nontender. 4+/5 strength of knee flexion extension. Impression: Osteoarthritis, bilateral knees Plan: Nature of the diagnosis discussed with the patient today. Both surgical and nonsurgical options were reviewed. This point recommend a repeat cortisone injection. Patient agreed.After aseptic technique and consent the bilateral knee(s) was injected with 1 cc of Kenalog-40 and 5 cc of 0.25% Marcaine. Patient tolerated the procedure well postinjection precautions were reviewed. Follow-up with us in 3 months for discussion of continued conservative management versus surgical management. [email or web address] Not available 04/13/2024 08:34:06 09/14/2024 09/14/2024 I am seeing the patient today under the supervision of Dr. Boyce Who was available but who did not see the patient. HPI: Patient comes in for recheck of bilateral knee pain. Has known osteoarthritis in the medial compartment of the knee(s). Been treated conservatively with cortisone injection to this point with 1-2 months relief of symptoms. Intermittent days with pain. No new injury or modalities. Past family, medical, social history and review of systems has been reviewed, updated and is located in the patient? s chart. Examination:The patient is well appearing and in no apparent distress. Alert and oriented x3. Vital signs per intake sheet. Examination of the bilateral knees reveals no effusion erythema or warmth. Decreased range of motion. Lower extremity varus deformity. Point tender over the medial joint line. Calf soft and nontender. 4+/5 strength of knee flexion extension. X-rays were reviewed including 4 views of the bilateral knee demonstrates severe bone on bone articulation of both the medial and lateral compartment. Patellofemoral joint space narrowing as well. significant osteophyte formation. Patella tracking lateral within the trochlea. No obvious fractures, loose bodies or dislocations. Impression: Osteoarthritis, bilateral knees Plan: I explained the nature of the diagnosis with the patient and its treatment options both conservative and surgical. Conservative measures were discussed at length including but not limited to physical therapy, bracing, anti-inflammatori es and injection therapies. Patient would like to try bilateral injections. Patient has received decreasing benefit from conservative management with cortisone, therefore would like to order Visco supplementation. Will obtain insurance approval and see the patient back once this has been obtained. Please see procedure documentation for further information about the injection performed today. Will follow up in 3 months for further evaluation. The patient understands and agrees with the plan. They know to call if they have any further questions or concerns regarding their symptoms, or to follow up sooner if needed. Not available 09/14/2024 09:36:03 Plan of Treatment Reminders Order Date Submit Date Provider Last Modified By Organization Details Last Modified Time Details Appointments INJECTION ONLY 15 2024 11:00A M Dex Larose PA-C Not available Not available Not available Lab None recorded. Referral None recorded. Procedures None recorded. Surgeries None recorded. Imaging None recorded. Medication Orders None recorded. Patient TargetsNo targets recorded. Patient InstructionsNo instructions recorded. Reason for Referral None Reported. Results Created Date Observation Date Name Description Value Unit Range Abnormal Flag Note LastModifiedBy Organization Detail LastModifiedTime 06/24/20 24 05/27/2023 imagi ng/di agnos tic resul t No observ ation record ed. [email or web address] Available 05/27 04:24:24 06/24/20 24 06/09/2022 imagi ng/di agnos tic resul t No observ ation record ed. [email or web address] Available 05/27 04:25:16 06/24/20 24 06/09/2022 imagi ng/di agnos tic resul t No observ ation record ed. [email or web address] Available 05/27 04:25:17 06/24/20 24 11/28/2021 imagi ng/di agnos tic resul t No observ ation record ed. [email or web address] Available 05/27 04:25:58 06/24/20 24 11/28/2021 imagi ng/di agnos tic resul t No observ ation record ed. [email or web address] Available 05/27 04:25:59 06/24/20 24 11/28/2021 imagi ng/di agnos tic resul t No observ ation record ed. [email or web address] Available 05/27 04:26:01 Result Notes None recorded. Procedures Surgical History Date Name Laterality Status Provider Name and Address Organization Details Recorded Time 4 JZKNEE INJ Humberto completed Dex Larose PA-C [address], [place], [address], [facility] 09/14/2024 07:50:28 4 Knee Kenalog 40mg 1cc Asp & Inj, Bilateral completed Dex Larose PA-C [address], [place], [address], [facility] 04/13/2024 08:33:43 4 Knee Kenalog 40mg 1cc Asp & Inj, Bilateral completed Dex Larose PA-C [address], [place], [address], [facility] 01/18/2024 15:27:01 Imaging Results Imaging Date Name Status LastModified by Organiz ation Details LastModified Time 05/27/2023 imaging/diag nostic result completed Information not available 06/24/2024 04:24:24 06/09/2022 imaging/diag nostic result completed Information not available 06/24/2024 04:25:16 06/09/2022 imaging/diag nostic result completed Information not available 06/24/2024 04:25:17 11/28/2021 imaging/diag nostic result completed Information not available 06/24/2024 04:25:58 11/28/2021 imaging/diag nostic result completed Information not available 06/24/2024 04:25:59 11/28/2021 imaging/diag nostic result completed Information not available 06/24/2024 04:26:01 Procedure Notes None recorded. Medical Equipment None Reported. Allergies Allergen ID Allergen Name Allergen Category Reaction Reaction Severity Criticality Documentation Date Start Date Code Code System Note Provider Name and Address Organization Details Recorded Time [id number] Substance with sulfonami de structure and antibacte rial mechanism of action (substanc e) medicatio n Not available Not available Not available 01/18/2024 41659 [id number] SNOMED KAYLIA L'HEUREUX wu, [facility] 14:58:46 Medications Name Sig Start Date Stop Date Status Note LastModified by Organization Details LastModified Time amoxicillin 500 mg capsule TAKE 1 CAPSULE BY MOUTH THREE TIMES A DAY active Not Available Not Available No t Available gabapentin 600 mg tablet TAKE 1 TABLET BY MOUTH THREE TIMES A DAY active Not Available Not Available No t Available quetiapine 300 mg tablet active Not Available Not Available Not Available methylpheni date 20 mg tablet TAKE 2 TABLETS EVERY MORNING AND 1 TABLET IN THE AFTERNOON active Not Available Not Available No t Available senna 8.6 mg tablet active Not Available Not Available No t Available phenazopyri dine 200 mg tablet TAKE 1 TABLET BY MOUTH 3 TIMES A DAY FOR 3 DAYS 01/17 completed Not Available Not Available Not Available Synthroid 125 mcg tablet TAKE 2 TABLES EVERY DAY WITH AN EXTRA TABLE ONCE WEEKLY ON AN EMPTY STOMACH active Not Available Not Available No t Available quetiapine 200 mg tablet TAKE 1 TABLET BY MOUTH EVERYDAY AT BEDTIME active Not Available Not Available No t Available clonazepam 1 mg tablet TAKE 1 TABLET BY MOUTH 3 TIMES EVERY DAY AND THEN 1 TABLET DAILY NEEDED active Not Available Not Available No t Available midodrine 5 mg tablet TAKE 1 TABLET BY MOUTH THREE TIMES A DAY 01/17 completed Not Available Not Available Not Available metronidazo le 500 mg tablet TAKE 1 TABLET BY MOUTH EVERY 8 HOURS 01/17 completed Not Available Not Available Not Available ciprofloxac in 250 mg tablet TAKE 1 TABLET BY MOUTH 2 TIMES A DAY 01/17 completed Not Available Not Available Not Available tramadol 50 mg tablet TAKE 1 TABLET BY MOUTH ONCE A DAY NEEDED FOR MODERATE KNEE PAIN 01/17 completed Not Available Not Available Not Available quetiapine 100 mg tablet TAKE 1 TABLET BY MOUTH TWICE DAILY DURING DAYTIME HOURS NEEDED active Not Available Not Available No t Available magnesium oxide 400 mg (241.3 mg magnesium) tablet active Not Available Not Available Not Available Vitamin C 1,000 mg tablet TAKE 1 TABLET BY MOUTH TWICE A DAY active Not Available Not Available No t Available tamsulosin 0.4 mg capsule TAKE 1 CAPSULE BY MOUTH EVERY DAY 01/17 completed Not Available Not Available Not Available baclofen 10 mg tablet TAKE 1 TABLET BY MOUTH THREE TIMES A DAY active Not Available Not Available No t Available warfarin 5 mg tablet TAKE 1 - 2 TABLETS BY MOUTH ONCE DAILY DIRECTED BY [facility] active Not Available Not Available No t Available nystatin-tr iamcinolone 100,000 unit/g-0.1 % topical cream APPLY TO CORNERS OF MOUTH 4 TIMES A DAY active Not Available Not Available No t Available docusate sodium 100 mg capsule TAKE 1 CAPSULE BY MOUTH TWICE A DAY active Not Available Not Available No t Available mupirocin 2 % topical ointment APPLY ONCE TO TWICE DAILY TO BIOPSY SITE UNTIL HEALED. 04/10 completed Not Available Not Available Not Available ziprasidone 40 mg capsule TAKE 1 CAPSULE EVERY MORNING AND 3 CAPSULES AT BEDTIME active Not Available Not Available No t Available metoprolol succinate ER 25 mg tablet,exte nded release 24 hr TAKE 1 TABLET BY MOUTH EVERY DAY 01/17 completed Not Available Not Available Not Available clobetasol 0.05 % topical ointment APPLY TWICE A DAY TO AFFECTED AREAS OF EAR X 2 WEEKS ON, 1 WEEK OFF. REPEAT FOR FLARES. active Not Available Not Available No t Available estradiol 0.01% (0.1 mg/gram) vaginal cream APPLY 1 GRAM VAGINALLY DAILY AT BEDTIME X 2 WEEKS, THEN 3 TIMES A WEEK FOR MAINTENAN CE. active Not Available Not Available No t Available zolpidem 10 mg tablet TAKE 1 TABLET BY MOUTH EVERY DAY AT BEDTIME NEEDED active Not Available Not Available No t Available ferrous sulfate 325 mg (65 mg iron) tablet,henna yed release TAKE 1 TABLET BY MOUTH EVERY DAY 09/11 completed Not Available Not Available Not Available ketoconazol e 2 % topical cream APPLY TWICE DAILY TO FEET FOR 3-4 WEEKS. REPEAT NEEDED. active Not Available Not Available No t Available lamotrigine 100 mg tablet TAKE 1 TABLET BY MOUTH EVERY DAY active Not Available Not Available No t Available Daily-Dia tablet active Not Available Not Available Not Available midodrine 10 mg tablet TAKE 1 TABLET BY MOUTH THREE TIMES A DAY active Not Available Not Available No t Available enoxaparin 120 mg/0.8 mL subcutaneou s syringe INJECT 120 MG SUBCUTANE OUS INJECTION EVERY 12 HOURS,X30 DAYS 01/17 completed Not Available Not Available Not Available Seroquel SEROquel 300MG Tablet 01/01 completed Statu s: 'Disc ontin ued'; Not Available Not Available Not Available Ritalin Ritalin 10MG Tablet 01/17 completed Statu s: 'Curr ent'; Not Available Not Available Not Available sodium fluoride 1.1 % dental paste USE DIRECTED BY OFFICE 04/10 completed Not Available Not Available Not Available lisdexamfet amine 70 mg capsule TAKE 1 CAPSULE BY MOUTH EVERY MORNING 01/17 completed Not Available Not Available Not Available Xarelto 20 mg tablet 04/10 completed Not Available Not Available Not Available mirabegron ER 50 mg tablet,exte nded release 24 hr TAKE 1 TABLET BY MOUTH EVERY DAY DO NOT CRUSH OR CHEW active Not Available Not Available No t Available Adempas 0.5 mg tablet 01/17 completed Not Available Not Available Not Available Adempas 2 mg tablet active Not Available Not Available No t Available Vitals Date Recorded Body height Body mass index (BMI) Body weight Provider Name and Address Organization Details Last Updated DateTime 01/18/2024 162.56 cm 37.6 kg/m2 42643.73 g KAYLIA L'HEUREUX [facility] 01/18/2024 14:58:27 Date Recorded Body height Body mass index (BMI) Body weight Provider Name and Address Organization Details Last Updated DateTime 04/13/2024 162.56 cm 37.6 kg/m2 06117.73 g Dex Larose PA-C [address] [place] [address] [address], [place], [address], [facility] 04/13/2024 11:24:06 Date Recorded Body height Body mass index (BMI) Body weight Provider Name and Address Organization Details Last Updated DateTime 09/14/2024 162.56 cm 37.6 kg/m2 86987.73 g KAYLIA L'HEUREUX [facility] 09/14/2024 09:12:46 Social History Question Answer Notes LastModified by Organizat ion Details LastModified Time Tobacco Smoking Status Former Smoker KAYLIA L'HEUREUX [facility] 01/18/2024 15:03:25 What Is Your Level Of Alcohol Consumption? Occasional Information not available 01/18/2024 How Many Times Per Week Do You Consume Alcohol? Less Than 1 Time Per Week Information not available 01/18/2024 When Did You Quit Smoking? 16+yearssincel astcigarette Information not available 01/18/2024 What Is Your Relationship Status? Information not available 01/18/2024 How Much Tobacco Do You Smoke? No Information not available 01/18/2024 Do You Use Any Illicit Or Recreational Drugs? No Information not available 01/18/2024 Do You Or Have You Ever Used Any Other Forms Of Tobacco Or Nicotine? No Information not available 01/18/2024 Sex: Unknown Functional Status None recorded. Mental Status None recorded. Family History Nothing Reported. Medical History Condition Response Allergies/Hayfever N Coronary Artery Disease N Anxiety/Depression N Emphysema N Thyroid Problems Y COPD N Pacemaker N Kidney/Bladder Problems N Anemia Y Vascular Disease N Heart Attack (MD) N Gastrointestinal Disease Y Diabetes N Autoimmune disease N Bleeding Disorder Y Orthotics N Seizures/Epilepsy N Arthritis Y Blood Clot Y AIDS/HIV N Congestive Heart Failure (CHF) N Acid Reflux (GERD) N Cancer N Stroke N Asthma N Peripheral Vascular Disease N Sleep Apnea N Hepatitis N Heart Disease Y Rheumatoid Arthritis N Pulmonary Embolism Y Arrhythmia N Fibromyalgia Y Hypertension N Osteoporosis N Gynecological HistoryNo gynecological history recorded. Obstetrics History GPAL:G 0 P 0 0 0 0 Past Encounters Encounter ID Performer Location Encounter Start Date Encounter Closed Date Diagnosis/Indication Diagnosis SNOMED-CT Code Diagnosis ICD10 Code Diagnosis Note [id number] NELLY Birch [address] [place] [address] 01/18/2024 14:45:59 01/18/2024 15:38:28 Bilateral osteoarthritis of knees [id number] 00845 M17.0 [id number] NELLY Birch [address] [place] [address] 04/13/2024 10:59:07 05/18/2024 13:48:49 Bilateral osteoarthritis of knees [id number] 31384 M17.0 [id number] NELLY Birch [address] [place] [address] 09/14/2024 09:06:40 10/13/2024 14:54:22 Bilateral osteoarthritis of knees [id number] 86812 M17.0 Health Concerns Section Related Observation LastModified by Organization Detai ls LastModified Time None Recorded Concern Status LastModified by Organization Details LastModified Time None Recorded Advance Directives Directive None Recorded Payers Encounter Date Sequence Insurance Name Policy Number Policy Hammer Covered Member ID Hammer Member ID Guarantor Name 01/18/2024 1 [facility]: [facility] [place] [id number] Tyron Pittman [id number] Pittman 04/13/2024 1 [facility]: [facility] [place] [id number] Tyron Pittman [id number] [place] 09/14/2024 1 [facility]: [facility] [place] [id number] Tyron Pittman [id number] Pittman Notes Date Note Type Note Provider Name and Address Organization Details Recorded Time 01/18/2024 text/html I am seeing the patient today under the supervision of Dr. Blanco Who was available but who did not see the patient. HPI: Patient comes in for recheck of {{right left bilater al*}} knee pain. Has known osteoarthritis in the medial compartment of the knee(s). Been treated conservatively with cortisone injection to this point with 2 or so months relief of symptoms. Intermittent days with pain. No new injury or modalities. Past family, medical, social history and review of systems has been reviewed, updated and is located in the patient? s chart. Examination:The patient is well appearing and in no apparent distress. Alert and oriented x3. Vital signs per intake sheet. Examination of the {{right left bilater al*}} knees reveals no effusion erythema or warmth. Decreased range of motion. Lower extremity varus deformity. Point tender over the medial joint line. Calf soft and nontender. 4+/5 strength of knee flexion extension. Impression: Osteoarthritis, {{left right bilater al*}} knees Plan: Nature of the diagnosis discussed with the patient today. Both surgical and nonsurgical options were reviewed. This point recommend a repeat cortisone injection. Patient agreed.After aseptic technique and consent the {{right left bilater al*}} knee(s) was injected with 1 cc of Kenalog-40 and 5 cc of 0.25% Marcaine. Patient tolerated the procedure well postinjection precautions were reviewed. Follow-up with us {{as needed in 3 months*}} for discussion of continued conservative management versus surgical management. Dex Larose PA-C [address], [place], [address], [place] [facility] 01/18/2024 15:29:20 OBGyn Episode No OBEpisode recorded.
== END 2024-12-14 13:43 | disposition home or self-care (01) ==
PROVIDERS: PCP Nurse Practitioner Family; Visit Provider Internal Medicine
DX: I95.9 Hypotension, unspecified (principal); R00.0 Tachycardia, unspecified; I27.24 Chronic thromboembolic pulmonary hypertension
CPT/HCPCS: 99214

== ENCOUNTER 2025-06-13 12:44 | Outpatient (AMB) | payer BC, SELFPAY ==
[2025-06-13 12:56] VITALS: BP 110/60; PULSE 88; BMI 37.4
--- NOTE | 2025-06-13 12:56 | A.OFFVIS_ITS ---
Vital Signs 06/13/25 12:56 Height 5 ft 5 in Weight 224 lb 13.944 oz BMI 37.4 BP 110/60 Blood Pressure Location Lt brachial Position Sitting Pulse 88 Pulse Source Monitor Intake Visit Reasons: 6m follow up Allergies Sulfa (Sulfonamide Antibiotics) Allergy (Intermediate, Verified 12/14/23 23:11) RASH/SWELLING/THROAT CLOSING Medication List - Last Reconciled 06/13/25 by Matheus Cook MD acetaminophen (Tylenol Extra Strength) 1,000 mg PO Q6H PRN amoxicillin 500 mg PO TID ascorbic acid (vitamin C) 1,000 mg PO DAILY baclofen 10 mg PO TID PRN 90 days biotin mcg PO clonazepam 1 mg PO .q 6 hrs docusate sodium (Colace) 100 mg PO BID gabapentin 600 mg PO TID L. gasseri-B. bifidum-B longum 1.5 billion cell 1 cap PO DAILY lamotrigine 100 mg PO DAILY levothyroxine 200 mcg PO DAILY magnesium oxide 800 mg PO DAILY methylphenidate HCl 20 mg PO BID midodrine 10 mg PO TID mirabegron ER (Myrbetriq) 50 mg PO DAILY multivitamin (Daily Multi-Vitamin tablet) 1 tab PO DAILY omeprazole 40 mg PO DAILY polyethylene glycol 3350 (Miralax) 17 grams PO BID quetiapine 200 mg PO BEDTIME quetiapine 100 mg PO BID PRN quetiapine 600 mg PO BEDTIME riociguat (Adempas) 2 mg PO TID sennosides (senna) 8.6 mg PO BID warfarin 5 mg PO Q OTHER DAY ziprasidone HCl 40 mg PO zolpidem 10 mg PO BEDTIME PRN HPI Comments Details: Delores returns for follow-up. Complex medical history. She used to be a patient at [facility] in past. Per history, diagnosed with 'drop attacks' more than 15 years ago. At that time, she was started on metoprolol and Florinef. Not on these anymore. No further episodes since that time. History of lung cancer and has undergone left lower lobectomy few years ago. Subsequently, pulmonary embolism and then diagnosed with chronic thromboembolic pulmonary hypertension. She goes to [facility] in that regard. She is maintained on anti-coagulation. From the cardiac standpoint, no known coronary disease or cardiomyopathy. In 2022, underwent removal of right total hip arthroplasty and placement of antibiotic cement spacer surgery. According to patient, surgery itself was uneventful but she was hospitalized again with low blood pressure, dizziness. She was requiring Levophed in the ER. Then metoprolol was stopped. She believes that the low blood pressure could have been due to not taking midodrine but not clear. Lasix dose was then reduced. Also on midodrine. After that, she was admitted with high pulse rate and was diagnosed with pericardial hematoma worrisome for cardiac compression, for which she underwent sternotomy and mediastinal washout. Over the last year or so, she has been doing actually quite well. No new concerns. No cardiac symptoms. [facility] Medical History (Updated 12/14/23 @ 23:26 by Alisha Worley MD) Skin lesion of chest wall Sinus tachycardia Pleural effusion, right Pericardial hematoma Bilateral knee pain Word finding difficulty ADD (attention deficit disorder) Bipolar disorder Dependence on supplemental oxygen Nonscarring hair loss Morbid obesity History of pneumothorax History of pulmonary embolism Chronic thromboembolic pulmonary hypertension History of right breast cancer (~1998) Gallstones Migraine headache Anemia Fatigue Hypothyroidism Lung cancer (~2017) Obstructive sleep apnea (adult) (pediatric) Surgical History History of open heart surgery History of right breast biopsy (~1998) History of colonoscopy History of laparoscopic adjustable gastric banding (~2009) History of cholecystectomy (~2001) History of lobectomy of lung (~2017) History of total right hip replacement (~2012) History of lumpectomy of right breast Family History Father Stomach cancer Stroke CAD (coronary artery disease) Heart disease Hyperlipidemia CVD (cardiovascular disease) Mother Hyperlipidemia HTN (hypertension) History of TIA (transient ischemic attack) Vascular dementia Mental illness in member of household Sister Rheumatoid arthritis Maternal Aunt Breast cancer Social History Housing: House Alcohol intake: current Alcohol intake frequency: holidays/special occasions only Patient Tobacco Use Status: Former Tobacco user Years Smoked: 12 +/- e-Cigarette/Vaping Use: Never Used Second Hand Smoke Exposure: No Current occupational status: other 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 needs: No Hearing needs: No Vision needs: Yes Review of Systems Const Denies weakness ENT Denies dizziness Card Denies chest pain, Denies chest pain with activity, Denies syncope, Denies rapid heart rate, Denies pedal edema, Denies edema, Denies leg edema, Denies lightheadedness, Denies palpitations, Denies dyspnea, Denies dyspnea on exertion and Denies orthopnea Resp Denies cough, Denies dyspnea and Denies dyspnea on exertion GI Denies hematochezia and Denies change in stool character Musc Denies abnormal gait, Denies muscle cramps, Denies muscle weakness, Denies numbness, Denies radiating pain into limb and Denies tingling Neuro Denies abnormal gait, Denies dizziness, Denies syncope, Denies numbness, Denies tingling and Denies weakness Endo Denies palpitations Physical Exam Vital Signs: Last Vital Signs Pulse 88 06/13/25 12:56 BP 110/60 06/13/25 12:56 BMI result Body Mass Index 37.4 Const General: comfortable and no acute distress Orientation/consciousness: patient oriented x3 HEENT Other: Unremarkable Head: Yes normal to inspection Neck Neck: Yes normal visual inspection Chest Chest palpation & inspection: normal inspection of the chest Resp Auscultation: clear to auscultation bilaterally Cardio Palpation: normal PMI Heart sounds: S1 normal heart sound present, S2 normal heart sound present, no gallops, no murmurs and no rubs GI Palpation (GI): Soft to palpation Back/Spine/Pelvis Other: unremarkable Skin General skin exam: no rashes or lesions noted Neuro General: patient oriented x3 Extrem General: Yes normal to inspection Psych Mental Status: mental status grossly normal Office Procedures EKG Details: EKG with underlying sinus rhythm at 88/Min; incomplete right bundle-branch block; cannot exclude a old anterolateral infarct but more likely from body habitus; leftward axis; [place]. [id number], Complete Assessment & Plan Assessment & Plan (1) Arterial hypotension: Code(s): I95.9 - Hypotension, unspecified Category: Medical (2) Sinus tachycardia: Code(s): R00.0 - Tachycardia, unspecified Category: Medical (3) Chronic thromboembolic pulmonary hypertension: Code(s): I27.24 - Chronic thromboembolic pulmonary hypertension Category: Medical Plan Cardiac studies reviewed. In the most recent echocardiogram from [facility] 2022, LVEF 60-65%. No wall motion abnormalities. Mild flattening of interventricular septum thought to be from RV volume overload. Dilated left atrium. No significant valvular issues. Right ventricle moderate to severely dilated. Reduced function. Accurate pulmonary artery pressure could not be obtained. Cardiac catheterization from 2019 shows no significant CAD. Hence there is no evidence of coronary disease or cardiomyopathy. With regard to the chronic sinus tachycardia, unable to take beta-blockers due to low blood pressure. She is also on midodrine. Suspect this is multifactorial with some combination of deconditioning, pulmonary embolism as well as autonomic insufficiency. Possible element of inappropriate sinus tachycardia. However, no recent issues in this regard. She may continue midodrine without changes but as the blood pressure is reasonably stable she can also try to cut back on it and see how she feels. As long as she is not getting dizzy or syncopal, she will be able to cut back and possibly stopped. We discussed about this today. She will contact us with ongoing concerns. Follow-up in 6 months. Discussion Notes I discussed with the patient the management of her pulmonary hypertension and the importance of monitoring her blood pressure and symptoms of dizziness. We talked about the possibility of reducing her midodrine dosage gradually. Patient was informed and verbally consented to the use of an ambient scribe for clinic note documentation during this visit. Orders: Orders CA echo transthoracic complete 12/23/25 I27.24 - Chronic thromboembolic pulmonary hypertension, I95.9 - Hypotension, unspecified Patient Instructions: - Monitor your blood pressure regularly. - Gradually reduce midodrine dosage as discussed. - Report any significant changes in symptoms or blood pressure. Coding Level of Care Code Est Pt Level 4 (56891) Complex EM visit Add On G2211 Diagnoses Arterial hypotension I95.9 Sinus tachycardia R00.0 Chronic thromboembolic pulmonary hypertension I27.24 CPT Codes EKG - CPT: 82202-[id number], Complete ([id number])
--- OUTSIDE RECORDS SUMMARY | 2025-06-13 13:35 | XMS_ITS | Clinical Summary ---
Author Organization [facility] Address [address] [place] [phone] Phone Care Team Providers Care Machine Shop Lead Man Name Role Phone Alisha Worley MD Primary Care Provider Allergies Active Allergy Reactions Criticality Noted Date Comments Sulfa (Sulfonamide Antibiotics) 12/10/2011 Other Reaction(s): Numbness, [...] take 1 tablet by mouth every day Active docusate sodium (COLACE) 100 mg capsule [...] Tablet by mouth 3 times daily. Active warfarin (COUMADIN) 1 mg tablet Take 1 tablet (1 mg total) by mouth 1 (one) time each day with dinner. Active Active Problems Problem Noted Date Diagnosed Date Mediastinal lymphadenopathy 11/01/2023 Assessment & Plan (02/05/2025 1:55 PM EDT): Ms. Lewis is a 64-year-old female who had a robotic left lower lobectomy in 2018 for stage I adenocarcinoma. CT chest in September 2023 showed a slightly increased AP window lymph node measuring 1.2 x [address] chest 01/31/24 showed stable finding of the mildly enlarged AP window lymph node. Patient's most recent CT scan performed on 01/23/25 here at [facility] shows no suspicious interval change and a stable nonspecific left anterior mediastinal lymph node as compared to previous scans done in September 2023 and January 2024. There is no concern overall for recurrence or new disease within the chest. Will continue routine surveillance with another CT chest in 1 year, January 2026. Patient will have a visit with us after the scan. Patient told to call the office should she have any questions or concerns prior to their next appointment. Arthritis 12/10/2011 Back spasm 12/10/2011 Bipolar 1 disorder ([facility] V24, [facility] V28) Hypothyroid 12/10/2011 Neurocardiogenic syncope 12/10/2011 Overview (12/12/2024): Positive tilt table Obesity 12/10/2011 Rosacea 12/10/2011 Surgical History Surgery Date Site/Laterality Comments CHOLECYSTECTOMY 2021 PROCEDURE: LA CHOLECYSTECTOMY OTHER SURGICAL HISTORY PROCEDURE: COLONOSCOPY, SURGICAL OTHER SURGICAL HISTORY 2009 PROCEDURE: LA EGD BAND LIGATION ESOPHGEAL/GASTRIC VARICES OTHER SURGICAL HISTORY 2018 Left PROCEDURE: LA THORACOSCOPY W/LOBECTOMY SINGLE LOBE; COMMENT: LLL Lobectomy BREAST LUMPECTOMY Right PROCEDURE: HISTORICAL BREAST LUMPECTOMY BREAST BIOPSY 1998 Right PROCEDURE: BX BREAST; PERC NEEDLE CORE W/IMAG GUID HIP ARTHROPLASTY 2012 PROCEDURE: HISTORICAL HIP REPLACEMENT Medical History Medical History Date Comments Syncope DX:Syncope Hypothyroid 12/10/2011 DX:Hypothyroid Bipolar 1 disorder ([facility] V24, [facility] V28) 12/10/2011 DX:Bipolar 1 disorder (HCC) Rosacea 12/10/2011 DX:Rosacea Back spasm 12/10/2011 DX:Back spasm Arthritis 12/10/2011 DX:Arthritis Attention deficit disorder DX:At tention deficit disorder Anemia DX:Anemia Chronic thromboembolic pulmo nary hypertension ([facility] V24, [facility] V28) DX:Chronic thromboembolic pu lmonary hypertension (HCC) Dependence on supplemental oxygen DX:Dependence on supplemental oxygen Other somatoform disorders DX:Ot her somatoform disorders Gallstones DX:Gallstones History of pneumothorax DX:Histo ry of pneumothorax History of pulmonary embolism DX :History of pulmonary embolism History of right breast cancer D X:History of right breast cancer Lung cancer ([facility] V24, [facility] V28) 2017 DX:Lung cancer (HCC); COMMENT: LLL Lung Cancer - Stage 1 Adenocarcinoma) Migraine headache DX:Migraine he adache Morbid obesity ([facility] V24, [facility] V28) DX:Morbid obesity ([facility]) Nonscarring hair loss DX:Nonscar ring hair loss Obstructive sleep apnea DX:Obstr uctive sleep apnea Right hip pain DX:Right hip armand n Heart disease DX:Heart disease Essential (primary) hypertension DX:Essential (primary) hypertension Fibromyalgia DX:Fibromyalgia Pericardial hematoma DX:Pericard ial hematoma; COMMENT: history of Antiphospholipid antibody sy ndrome ([facility] V24) DX:Antiphospholipid antibody syndrome (HCC) Family History Medical History Relation Name Comments [...] Sign Reading Time Taken Comments Blood Pressure 119/74 02/05/2025 1:20 PM EDT Pulse 85 02/05/2025 1:20 PM EDT Temperature 36.7 C (98.1 F) 02/05/2025 1:20 PM EDT Respiratory Rate 14 02/05/2025 1:20 PM EDT Oxygen Saturation 98% 02/05/2025 1:20 PM EDT Inhaled Oxygen Concentration - - Weight 108 kg (237 lb 1.6 oz) 02/05/2025 1:20 PM EDT Height 165.1 cm (5' 5 ) 02/05/2025 1:20 PM EDT Body Mass Index 39.46 02/05/2025 1:20 PM EDT Plan of Treatment Health Maintenance Due Date Last Done Comments Breast Cancer Screening 1960 Cervical Cancer Screening: Pap Smear 1983 Cholesterol Screening (Lipid Panel) 09/22/2022 Colorectal Cancer Screening: Colonoscopy 09/22/2022 HIV Screening 09/22/2022 Hepatitis C Screening 09/22/2022 Social Influencers of Health Screening 09/22/2022 Hepatitis B Vaccines (2 of 2 - CpG 2-dose series) 01/13/2024 12/16/2023 Pneumococcal Vaccine: 50+ Years (3 of 3 - PPSV23, PCV20 or PCV21) 10/13/2024 10/13/2019, 10/13/2019 Depression Screening 10/25/2024 COVID-19 Vaccine (6 - Moderna risk 2023- season) 2025 11/21/2024, 12/01/2023, 08/06/2022, Additional history exists Influenza Vaccine (#1) 2025 , 06/03/2024, 12/01/2023, Additional history exists DTaP,Tdap,and Td Vaccines (2 - Td or Tdap) 01/09/2034 01/10/2024 RSV Immunization Adult Patients Completed 12/16/2023 Hepatitis A Vaccines Aged Out 01/10/2024 No long er eligible based on patient's age to complete this topic MMR Vaccines Aged Out 06/03/2024 No longer eligi ble based on patient's age to complete this topic Zoster Vaccines Completed 11/21/2024, 06/03/2020 HIB Vaccines Aged Out No longer eligi [...] age to complete this topic Meningococcal B Vaccine Aged Out No l onger eligible based on patient's age to complete this topic RSV Immunization Patients Under 20 months Aged Out No longer eligible based on patient's age to complete this topic Varicella Vaccines Aged Out No longer eligible based on patient's age to complete this topic Insurance [facility] Care Teams Machine Shop Lead Man Relationship Specialty Start Date End Date Alisha Worley MD [address] [place] [address] PCP - General 12/08/11
--- OUTSIDE RECORDS SUMMARY | 2025-06-13 13:35 | XMS_ITS ---
Author Name [facility] Organization Unknown Care Team Organization Name Specialty Phone Email Start Date End Da [facility] PHANI YEE Primary [facility]
--- OUTSIDE RECORDS SUMMARY | 2025-06-13 13:35 | XMS_ITS | Encounter Summary ---
Author Organization [facility] Address [address] [place] [id number] Care Team Providers Care Engineering Consultant Name Role Phone Alisha Worley MD Primary Care Provider Encounter Details Date Type Department Care Team (Late st Contact Info) Description 11/10/2023 Scanned Document [facility] Department of Pulmonology [place] [address] [facility] [place] [facility] [address] [place] [phone] Souleymane Martínez MD [address] [facility] [place] [facility] [address] [place] [address] Social History Tobacco Use Types Packs/Day Years Used Date Smoking Tobacco: Never Assessed Comments Unknown Sex and Gender Information Value Date Recorded Sex Assigned at Not on file Legal Sex Female 11:36 AM EST Gender Identity Not on file Sexual Orientation Not on file documented as of this encounter Plan of Treatment Not on file documented as of this encounter Visit Diagnoses Not on filedocumented in this encounter Care Teams Engineering Consultant Relationship Specialty Start Date End Date Alisha Worley MD [address] [place] [id number] PCP - General Internal Medicine 10/02/19 documented as of this encounter
--- OUTSIDE RECORDS SUMMARY | 2025-06-13 13:35 | XMS_ITS ---
Author Organization [facility] on Care Team Providers Care Supervisor Research Shop Name Role Phone Liz Alanis Unavailable Unavailable Mell Garcia Unavailable Unavailable Ciro Roth Unavailable Unavailable Dankia Joseph Unavailable Unavailable Roddy, Cait Unavailable Unavailable Kiki You Unavailable Unavailable Allergies and adverse reactions Code CodeSystem Substance Reaction Severity StartDate Concern Status 05040 RXNORM sulfADIAZINE Moderate 04/28/2021 active SULFA Unknown 04/28/2021 active Soy Unknown 04/28/2021 active Care Team Name Role Address Phone Organization Dates Ciro Roth PCP [address], [place], [address], [place] (Office): : [facility] 04/26/2021 - 05/31/[address] [facility], [place], [place] (Office): [facility] 04/26/2021 - 05/31/2021 Mell Garcia [address] [place], [address], [facility] (Office): [facility] 04/26/2021 - 05/31/2021 Danika Joseph [facility] [address], [place], [address], [place] (Office): : [facility] 04/26/2021 - 05/31/2021 Cait Pereyra [address], [place], [address], [place] (Office): : [facility] 04/26/2021 - 05/31/2021 Kiki You [address] [facility] [facility] [address], [place], [address], [place] (Office): [facility] 04/26/2021 - 05/31/2021 Immunizations Immunization Status Vaccine Details Vaccine Code CodeSystem Robbin e Notes SARS-COV-2 (COVID-19) completed SARS-COV-2 (COVID-19) vaccine, vector non-replicating, recombinant spike protein-Ad26, preservative free, 0.5 mL Mfg: Moderna Step 1 of Multi-step with next step required 212 CVX created date: 04/29/2021 administered date: 12/27/2020 Mental Status Section Date Assessment Total Score Description 05/31/2021 BIMS 15 cognitively int act CAM 0 No delirium ind icated PHQ-9 00 05/03/2021 BIMS 15 cognitively int act CAM 0 No delirium ind icated PHQ-9 00 Problems Problem # Description Date of onset Resolved Date Code CodeSystem Concern Status 1 SCHIZOAFFECTIVE DISORDER, BIPOLAR TYPE 04/27/[address] active 2 ANEMIA, UNSPECIFIED 04/26/[address] active 3 ANXIETY DISORDER, UNSPECIFIED 04/26/[address] active 4 ARTHRALGIA OF TEMPOROMANDIBULAR JOINT, UNSPECIFIED SIDE 04/26/[address] active 5 CHRONIC RESPIRATORY FAILURE, UNSPECIFIED WHETHER WITH HYPOXIA OR HYPERCAPNIA 04/26/[address] active 6 DISRUPTION OF EXTERNAL OPERATION (SURGICAL) WOUND, NOT ELSEWHERE CLASSIFIED, INITIAL ENCOUNTER 04/26/[address] active 7 HYPOTHYROIDISM, UNSPECIFIED 04/26/[address] active 8 INFECTION AND INFLAMMATORY REACTION DUE TO INTERNAL FIXATION DEVICE OF RIGHT FEMUR, INITIAL ENCOUNTER 04/26/[address] active 9 MALIGNANT NEOPLASM O F UNSPECIFIED SITE OF UNSPECIFIED FEMALE BREAST 04/26/[address] active 10 OTHER POLYOSTEOARTHRITIS 04/26/[address] active 11 PRIMARY PULMONARY HYPERTENSION 04/26/[address] active 12 SADDLE EMBOLUS OF PULMONARY ARTERY WITHOUT ACUTE COR PULMONALE 04/26/[address] active 13 SLEEP APNEA, UNSPECIFIED 04/26/[address] active Reason for Referral No Reasons for Referral Entered Social History Social History Observation Description Start Date End Date Code Code System Current Smoking Status Tobacco smoking consumption unknown 892949946 SNOMED CT Sex Assigned At Female 1960 40168-1 [facility] Gender Identity Vital Signs Code Code System Vitals Name Values and Units Timing Information 9279-1 [facility] Respiratory Rate Value=18.0 Units=/m in 05/31/2021 90801-5 [facility] O2 % BldC Oximetry Value=96.0 Units= % 05/31/2021 8462-4 [facility] Blood Pressure-Diastolic Value=63 Un its=mmHg 05/31/2021 8480-6 [facility] Blood Pressure-Systolic Value=99 Uni ts=mmHg 05/31/2021 8310-5 [facility] Body Temperature Value=96.8 Units= F 05/31/2021 8867-4 [facility] Heart rate Value=60.0 Units=/min 04/2021 30924-9 [facility] Pain Level Value=0.0 05/31/2021 87070-0 [facility] Weight Zsfyq=669.0 Units=Lbs 8302-2 [facility] Height Value=68.0 Units=Inches 04/27/2021
--- OUTSIDE RECORDS SUMMARY | 2025-06-13 13:36 | XMS_ITS | Patient Health Record ---
[facility] Address [address] [place] [address] Care Team Providers Care Jewel Bearing Polisher Name Role Phone Brunilda CHANDLER, Alisha Culver Primary Care Provider Un available Black, Kaylee Unavailable [phone] Allergies Allergen (clinical drug ingredient) Drug/Non Drug [...] 3 weeks -repeat cycle 12 months Oral Daily; Duration: 12 months 11/20/2016 Active MiraLax 17 every [...] external Apply to effected areas twice a day; Duration: 30 days 08/14/2015 Not-Taking Biotin Not-Taking Amitriptyline HCl No t-Taking Lamisil 250 250 MG 1 Tab Oral Daily; Duration: 90 01/01/2015 Not-Taking Ciclopirox Olamine 0.77% external Apply to effected areas twice a day; Duration: 30 days 11/02/2016 Not-Taking Ciclopirox Olamine 0.77 % 1 application to affected area Externally Twice a day; Duration: 4 weeks 08/20/2011 Not-Taking Colace Not-Taking Flexeril Not-Taking Lasix Not-Taking Fludrocortisone Acetate Three times a Week Active clonazePAM 1 MG Orally BID Act isaak Adempas 2.5 MG 1 tablet Orally Three times a day Active Calcium Citrate Not- Taking Xarelto 20 MG 1 tablet with food Orally Once a day; Duration: 30 day(s) Active Baclofen 10 MG 1 tablet with food or milk Orally Active Percocet 5-325 MG 1 tablet as needed Orally every 6 hrs Active Lovenox 150 MG/ML Injection Ac tive Myrbetriq 50 MG 1 tablet Orally Once a day Active Ciclopirox Olamine 0.77 % 1 application to affected area Externally Twice a day; Duration: 30 days 01/18/2018 Active Gabapentin Active Tirosint 2 Orally Once a day except for Wednesday Active Ciclopirox Olamine 0.77% external Apply to effected areas twice a day; Duration: 30 days 12/24/2014 Not-Taking Ciclopirox Olamine 0.77% external Apply to effected areas twice a day; Duration: 30 days Active Immunizations Vaccine Route Administration Date Status Comme nts COVID-19 Moderna Vaccine Unknown 12/27/2020 Administered 1st vaccine 03/14 Social History Tobacco use other than smoking: Question Answer Notes Are you an other tobacco user? No Problems Problem Type SNOMED Code ICD Code Onset Dates Problem Status W/U Status Risk Notes Problem Acquired hallux valgus (70795457) Hallux valgus (acquired), left foot (M20.12) Active confirmed Problem Acquired hallux valgus (01856384) Hallux valgus (acquired), right foot (M20.11) Active confirmed Plan Of Treatment Pending Test Test Name Order Date *Liver Function Test (LFT) 12/24/2014 *Liver Function Test (LFT) 11/02/2016 [id number] NAIL, 6 OR MORE 11/02/2016 [id number] NAIL, 6 OR MORE 03/09/2017 [id number] NAIL, 6 OR MORE 06/18/2017 [id number] NAIL, 6 OR MORE 10/27/2017 [id number] NAIL, 6 OR MORE 06/14/2018 [id number] NAIL, 6 OR MORE 11/15/2018 [id number] NAIL, 6 OR MORE 07/07/2019 [id number] NAIL, 6 OR MORE 04/08/2020 [id number] NAIL, 6 OR MORE 07/31/2020 [id number] NAIL, 6 OR MORE 01/29/2021 [id number] NAIL, 6 OR MORE 05/15/2015 [id number] NAIL, 6 OR MORE 08/14/2015 [id number] NAIL, 6 OR MORE 02/12/2016 [id number] NAIL, 6 OR MORE 05/13/2016 [id number] NAIL, 6 OR MORE 08/20/2011 [id number] NAIL, 6 OR MORE 11/16/2011 [id number] NAIL, 6 OR MORE 12/24/2014 Nail Panel 01/18/2018 Insurance Providers Payer Name Payer Address Payer Phone Subscriber Number Group Number Insured Name Patient Relationship to Insured Coverage Start Date Coverage End Date [facility] [address] [place] [address] [id number] Tyron Pittman Spouse - patient is [...] Reason Date(Month/Year) [facility] Left lower lobectomy 09/22/18 [facility] Collapsed lung 10/11
== END 2025-06-13 13:16 | disposition home or self-care (01) ==
PROVIDERS: PCP Family Medicine; Visit Provider Internal Medicine
DX: I95.9 Hypotension, unspecified (principal); R00.0 Tachycardia, unspecified; I27.24 Chronic thromboembolic pulmonary hypertension
CPT/HCPCS: 93010; 99214

== ENCOUNTER → 2025-06-13 12:44 | Outpatient (BNVA) | payer BC, SELFPAY | PROVIDERS: PCP Family Medicine; Visit Provider Internal Medicine | DX: I95.9 Hypotension, unspecified (principal); R00.0 Tachycardia, unspecified; I27.24 Chronic thromboembolic pulmonary hypertension; I49.8 Other specified cardiac arrhythmias; I45.10 Unspecified right bundle-branch block; R94.31 Abnormal electrocardiogram [ECG] [EKG]; I21.09 ST elevation (STEMI) myocardial infarction involving other coronary artery of anterior wall | CPT/HCPCS: 93005 ==